=== PATIENT | female | born 1940 | race Caucasian/White ===

== ENCOUNTER → 2018-01-22 10:08 | Outpatient (CLI) | payer MEDICARE, SELFPAY ==
[2018-01-22 10:56] LABS: Anion Gap 9 (5-15); BUN 16 mg/dL (7-18); BUN/Creat Ratio 25.9 RATIO (10-20); Calcium,Total 8.9 mg/dL (8.5-10.1); Chloride 101 mmol/L (98-107); Creatinine, Serum 0.62 mg/dL (0.55-1.02); EST Glomerular Filtration Rate 100 mL/min (>60); Est Glom Filt Rate - Afr Amer 121 mL/min (>60); Glucose 83 mg/dL (74-106); Potassium 3.9 mmol/L (3.5-5.1); Sodium Level 140 mmol/L (136-145)
== END ==
PROVIDERS: Family Provider Family Medicine; PCP Family Medicine; Visit Provider Nurse Practitioner Acute Care
DX: J18.9 Pneumonia, unspecified organism (principal)
CPT/HCPCS: 36415; 80048

== ENCOUNTER → 2018-01-27 13:45 | Outpatient (CLI) | payer MEDICARE, SELFPAY ==
--- NOTE | 2018-01-27 14:00 | CT_ITS ---
STUDY: CT CHEST WITH CONTRAST REASON FOR EXAM: Female, 77 years old. Follow-up pneumonia. RADIATION DOSAGE (If Supplied By Facility): CTDIvol = ( 10.89 ) mGy, DLP = ( 190.47 ) mGycm TECHNIQUE: Transaxial imaging was performed following intravenous administration of 100CC ml of Isovue 300 contrast material. Individualized dose optimization techniques were used for this CT. COMPARISON: 09/18/2017, 11/07/2017. FINDINGS: There is hyperexpansion of the lungs. There is plate like density across the right middle lobe with thickening of the minor fissure consistent with residual scarring from previous pneumonia. Little if any residual pneumonia remains. There may be some residual atelectasis. Stable vague nodule in the posterior right apex, 4 mm size, seen on axial image 22. Lungs otherwise clear. No effusions. Normal heart and pericardium. Normal mediastinum. Normal hilar regions. Normal enhanced pulmonary arteries. Normal aorta arch and descending thoracic aorta. There are multi-level degenerative changes of the thoracic spine. There is no demonstrated abnormality of the visualized upper abdomen. CT/Chest WITH Contrast IMPRESSION: Only mild residual platelike atelectasis or scarring in the right middle lobe. No residual infiltrate. Electronically Signed: Ben Bates MD at 19:47 EDT , Service support ,
== END ==
PROVIDERS: Family Provider Family Medicine; PCP Family Medicine; Visit Provider Nurse Practitioner Acute Care
DX: J18.9 Pneumonia, unspecified organism (principal); R93.8 Abnormal findings on diagnostic imaging of other specified body structures
CPT/HCPCS: 71260; Q9967

== ENCOUNTER → 2018-06-03 12:50 | Outpatient (CLI) | payer MEDICARE, SELFPAY | PROVIDERS: Family Provider Family Medicine; PCP Family Medicine; Visit Provider Internal Medicine Cardiovascular Disease | DX: R01.1 Cardiac murmur, unspecified (principal) | CPT/HCPCS: 93306 ==

== ENCOUNTER 2022-04-18 18:48 | Emergency (ER) | payer MEDICARE, SELFPAY ==
[2022-04-18 18:48] VITALS: BP 124/87; PULSE 112; RESP 16; TEMP 37; O2SAT 98; BMI 21.9
--- NOTE | 2022-04-18 19:14 | CT_ITS ---
STUDY: CT BRAIN WITHOUT CONTRAST REASON FOR EXAM: Female, 82 years old. headache RADIATION DOSAGE (If Supplied By Facility): CTDIvol = ( 44.99 ) mGy, DLP = ( 812.98 ) mGycm TECHNIQUE: Transaxial CT imaging of the brain was performed without administration of intravenous contrast material. Individualized dose optimization techniques were used for this CT. COMPARISON: No relevant priors. FINDINGS: Normal soft tissue structures. Normal calvarium. Mild atrophy and periventricular white matter ischemic changes. Normal basal ganglia and thalami. Normal brainstem. Normal cerebellum. Partial empty sella deformity likely of no significance There is no intracranial hemorrhage. There are no findings of an acute ischemic infarction. Postsurgical changes of the orbits Moderate mucosal thickening of the maxillary sinuses bilaterally. CT/Brain/Head without Contrast IMPRESSION: Mild atrophy and periventricular white matter ischemic change. No evidence for acute intracranial hemorrhage Electronically Signed: Kermit Grace MD at 19:47 EDT ,
[2022-04-18] MEDS: Diphth,Pertuss(Acell),Tet Vac 0.5 ML Vial IM (19:36)
--- NOTE | 2022-04-18 21:16 | EX.ED.GENINJ ---
HPI History of Present Illness Chief Complaint: Fall Narrative Narrative: This is an 82-year-old female presenting with laceration to the right lateral eyebrow. 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 She denies LOC. She denies visual complaints. She denies dizziness, nausea, vomiting. She denies neck pain. She has not injured her extremities. She is not on any anticoagulation. Last tetanus unknown. [facility] Medical History Arthritis Diverticulosis Essential (primary) hypertension GERD (gastroesophageal reflux disease) Mixed hyperlipidemia Pneumonia PUD (peptic ulcer disease) Home Medications pantoprazole 40 mg tablet,delayed release 40 mg PO DAILY #30 tabs 03/25/16 [Rx Last Taken Unknown] calcium phosphate-vitamin D3 250 mg calcium-250 unit chewable tablet 2 tab PO .COMPLEX 09/29/17 [History Last Taken Unknown] [id number]-[id number] 750 mg-100 mg-125 mg-1.65 mg tablet (Glucosamine Chondroit Complx Advan) 2 tab PO .DAILY 09/29/17 [History Last Taken Unknown] ferrous sulfate 325 mg (65 mg iron) tablet 325 mg PO QDAY 05/20/18 [History Last Taken Unknown] meloxicam 15 mg tablet 15 mg PO QHS PRN PRN pain #30 tabs 05/20/19 [History Last Taken Unknown] fosinopril 20 mg tablet 20 mg PO DAILY 05/23/20 [History Last Taken Unknown] oxybutynin chloride 5 mg tablet,extended release 24 hr 5 mg PO DAILY 05/23/20 [History Last Taken Unknown] amlodipine 5 mg tablet 10 mg PO DAILY 08/07/21 [History Last Taken Unknown] Allergy/AdvReac Type Severity Reaction Status Date / Time ibuprofen AdvReac Nausea Verified 05/23/20 13:17 Family History Father CVA (cerebral vascular accident) Mother Colon cancer Surgical History History of tubal ligation Social History household members: significant other housing: house number of children: 0 current occupational status: retired current occupation: retired pets and animals: Yes pets and animals: dog(s) Smoking Status: Never smoker alcohol intake: current alcohol intake frequency: a few times a month Alcohol type: wine and hard liquor substance use type: does not use ROS ROS ED Eyes Eyes: Denies blurry vision or change in vision ENT ENT ED: Denies rhinorrhea or sore throat Cardiovascular Cardiovascular: Denies palpitations Respiratory/Chest Respiratory/Chest: Denies cough or dyspnea Gastrointestinal Gastrointestinal: Denies abdominal pain or constipation Genitourinary Genitourinary ED: Denies dysuria or hematuria Musculoskeletal Musculoskeletal: Denies arthralgias Integumentary Reports other Details: Laceration to right lateral eyebrow ; Denies abscess Neurologic Neurologic: Denies headache(s) or paresthesias Psychiatric Psychiatric: Denies anxiety or depression EXAM Physical Exam Const Vital Signs: 04/18/22 18:48 04/18/22 19:17 Temperature 98.6 F Temperature Source Temporal Pulse Rate 112 H Respiratory Rate 16 Respiratory Effort Normal Blood Pressure 124/87 H Blood Pressure Mean 99 Pulse Ox 98 Oxygen Delivery Method Room Air Positive well nourished General Appearance ED: NAD HEENT HEENT Narrative: 3 cm laceration to the right forehead with partial laceration extending into the eyebrow. The medial aspect of this in the eyebrow is somewhat macerated. No skull deformity. There is bruising over the right zygoma. No significant tenderness. No extraocular muscle intact. No nasal bone tenderness or bruising. Nares patent without epistaxis. No nasal septal hematoma. No hemotympanum. Eyes PERRL and EOMs intact bilaterally Neck full ROM Neck Narrative: No tenderness to palpation of the cervical spine or paraspinal musculature. Chest Wall inspection of chest normal Resp normal respiratory effort and clear to auscultation bilaterally Cardio regular rhythm Rate: regular rate GI normal to inspection, nondistended, normoactive bowel sounds Neuro oriented x3, CN's II-XII intact bilaterally, moves all extremities, no focal motor deficits and no sensory deficits noted Sensorium / Orientation: alert Motor Exam: strength 5/5 throughout Skin Skin Narrative: As described above MDM MDM MDM Narrative Medical decision making narrative: Patient presents laceration to the right lateral forehead. No focal neurologic deficits or lateralizing signs with parents. Patient's tetanus was updated. CT of the brain was negative for intracranial hemorrhage or other acute pathology. Patient's wound was cleaned with chlorhexidine. It was irrigated with 250 cc of normal saline. Wound was anesthetized with 2 cc of lidocaine with epinephrine. Good anesthesia achieved. The medial aspect was somewhat macerated but I was able to pull this together with 5?0 ethylene suture without pulling too much tension and good approximation was achieved. 4 other interrupted sutures were placed with good approximation of the wound margins. Patient tolerated procedure well. Wound care was discussed. Patient to monitor for signs of infection. She is counseled her sutures to come out in 5 to 7 days. Patient discharged home in stable condition. Impression: 1. Mechanical fall 2. Closed head injury 3. 3 cm forehead laceration Lab Data Attestation: I reviewed the patient's lab results. Radiography Diagnostic Testing: Clinical Impression(s) from Imaging Studies Brain CT 04/18/22 19:14 IMPRESSION: Mild atrophy and periventricular white matter ischemic change. No evidence for acute intracranial hemorrhage Electronically Signed: Kermit Grace MD at 19:47 EDT , Discharge Plan Triage Chief Complaint: Fall ED Provider: Kurt Roberson Dx/Rx/DC Orders Instructions: ED Laceration Face Suture or ... Prescriptions: No Action calcium phosphate-vitamin D3 250 mg calcium-250 unit chewable tablet 250 mg calcium- 250 unit tablet,chewable 2 tab PO .COMPLEX Label Comments: 2 tab PO daily Rx Instructions: 2 tab PO daily [id number]-[id number]-hyal 750 mg-100 mg-125 mg-1.65 mg tablet 750 mg-100 mg- 125 mg-1.65 mg tablet 2 tab PO .DAILY ferrous sulfate 325 mg (65 mg iron) tablet 325 mg PO QDAY meloxicam 15 mg tablet 15 mg PO QHS PRN PRN (Reason: pain) Qty: 30 Label Comments: TAKE 1 TABLET BY MOUTH ONCE DAILY WITH FOOD oxybutynin chloride 5 mg tablet extended release 24hr 5 mg PO DAILY fosinopril 20 mg tablet 20 mg PO DAILY Label Comments: TAKE 1 TABLET BY MOUTH ONCE DAILY amlodipine 5 mg tablet 10 mg PO DAILY pantoprazole 40 MG tablet 40 mg PO DAILY Qty: 30 1RF Primary Care Provider: Lino Baeza Referrals: Lino Baeza MD [Primary Care Provider] - Disposition Disposition: Home, Self Care
[2022-04-18 21:29] VITALS: PULSE 92; RESP 18; O2SAT 96
== END 2022-04-18 21:29 | disposition home or self-care (01) ==
PROVIDERS: Emergency Provider Student in an Organized Health Care Education/Training Program; PCP Family Medicine; Visit Provider Student in an Organized Health Care Education/Training Program
DX: S01.81XA Laceration without foreign body of other part of head, initial encounter (principal); I10 Essential (primary) hypertension; W01.0XXA Fall on same level from slipping, tripping and stumbling without subsequent striking against object, initial encounter; Z23 Encounter for immunization; Z79.899 Other long term (current) drug therapy
CPT/HCPCS: 12013; 70450; 90471; 90715; 99283

== ENCOUNTER → 2022-09-20 | Outpatient (CLI) | payer MEDICARE, SELFPAY ==
--- NOTE | 2022-09-20 12:56 | ECHOD_ITS ---
Reason For Study: MURMUR Procedure This was a 2D Doppler, Color Flow transthoracic echocardiogram. Exam performed in department. Left Ventricle Normal LV size. Left ventricular systolic function is normal. The estimated ejection fraction is 65 %. Stage 1 diastolic dysfunction. No regional wall motion abnormalities noted. Right Ventricle Normal RV size. Normal systolic function. Atria Normal left atrium. Normal right atrium. Mitral Valve Normal mitral valve. Mild (1+) eccentric mitral valve insufficiency. Tricuspid Valve Normal tricuspid valve. Mild (1+) tricuspid valve insufficiency. Pulmonary artery systolic pressure is 30 mmHg. Aortic Valve Trisinus/trileaflet aortic valve. Mild (1+) aortic valve insufficiency. Pulmonic Valve Normal pulmonic valve. Great Vessels Normal aortic root. The pulmonary artery is normal size. Normal inferior vena cava. Pericardium/Pleural No pericardial effusion. MMode/2D Measurements & Calculations RVDd: 2.5 cm Ao root diam: 3.4 cm LAV(MOD-bp): 40.9 ml LAV(MOD-bp) Indexed: 27.2 ml/m2 LAV(MOD-sp2): 38.4 ml LAV(MOD-sp4): 43.0 ml SV(MOD-sp4): 29.6 ml SV(sp4-el): 32.9 ml LVAd ap4: 16.1 cm2 LVLd ap4: 5.7 cm EDV(MOD-sp4): 35.2 ml EDV(sp4-el): 38.6 ml LVAs ap4: 5.3 cm2 LVLs ap4: 4.1 cm ESV(MOD-sp4): 5.6 ml ESV(sp4-el): 5.7 ml EF(MOD-sp4): 84.2 % EF(sp4-el): 85.2 % LA A4 area: 16.5 cm2 LA dimension(2D): 4.0 cm RA A4 area: 10.3 cm2 Time Measurements MV dec time: 0.25 sec Doppler Measurements & Calculations MV E max simon: 68.2 cm/sec Lat Peak E' Simon: 8.6 cm/sec Med Peak E' Simon: 5.1 cm/sec MV A max simon: 94.7 cm/sec E/E' lat: 7.9 E/E' med: 13.3 MV E/A: 0.72 MV V2 max: 101.5 cm/sec MV dec slope: 274.0 cm/sec2 Ao V2 max: 165.2 cm/sec MV max P.1 mmHg Ao max P.9 mmHg MV V2 mean: 63.9 cm/sec Ao V2 mean: 113.0 cm/sec MV mean P.8 mmHg Ao mean P.9 mmHg MV V2 VTI: 29.6 cm Ao V2 VTI: 35.0 cm AV (velocity ratio): 0.82 AI max simon: 381.6 cm/sec LV V1 max: 142.3 cm/sec PA V2 max: 106.1 cm/sec AI max P.3 mmHg LV V1 max P.1 mmHg PA V2 mean: 75.4 cm/sec LV V1 mean P.7 mmHg AI dec slope: 263.8 cm/sec2 LV V1 mean: 100.3 cm/sec AI P1/2t: 423.7 msec LV V1 VTI: 28.5 cm TR max simon: 257.9 cm/sec TR max P.6 mmHg ECHO/Echo Complete Interpretation Summary Normal LV size. Left ventricular systolic function is normal. The estimated ejection fraction is 65 %. Mild (1+) aortic valve insufficiency. Stage 1 diastolic dysfunction. Pulmonary artery systolic pressure is 30 mmHg. Ordering Physician: Yari Jose Referring Physician: Yari Jose Performed By: Jessy Umana RCS
--- NOTE | 2022-09-20 12:56 | CDU_ITS ---
Reason For Study: Bruit Rt. Velocities/BP Lt. Velocities/BP Prox CCA 108.2/11.6 cm/sec. Prox CCA 83.0/13.0 cm/sec. Mid CCA 88.8/16.3 cm/sec. Mid CCA 67.7/16.0 cm/sec. Dist CCA 63.0/11.4 cm/sec. Dist CCA 58.9/13.8 cm/sec. Prox ICA 51.1/8.1 cm/sec. Prox ICA 56.3/13.6 cm/sec. Mid ICA 68.3/16.7 cm/sec. Mid ICA 76.2/17.3 cm/sec. Dist ICA 59.7/16.7 cm/sec. Dist ICA 98.3/24.1 cm/sec. Rt. ICA/CCA = 0.8. Lt. ICA/CCA = 1.5. Prox ECA 60.7/9.7 cm/sec. Prox ECA 73.2/8.4 cm/sec. Rt. Vert. 35.1/4.4 cm/sec. Lt. Vert. 46.8/11.7 cm/sec. Right Extracranial There is heterogeneous, irregular atherosclerotic plaque noted in the right common carotid artery. There is heterogeneous, irregular atherosclerotic plaque noted in the right internal carotid artery. There is intimal thickening but no significant atherosclerotic plaque noted in the right external carotid artery. Antegrade flow is noted in the right vertebral artery. Left Extracranial There is intimal thickening but no significant atherosclerotic plaque noted in the left common carotid artery. There is heterogeneous, irregular atherosclerotic plaque noted in the left internal carotid artery. There is intimal thickening but no significant atherosclerotic plaque noted in the left external carotid artery. Antegrade flow is noted in the left vertebral artery. Procedure Carotid Duplex [id number]. This is a Carotid Duplex examination using B-mode, color flow and specral Doppler. The exam was diagnostic. Exam performed in department. VL/Carotid Duplex Ultrasound Interpretation Summary Irregular calcific plaque of the proximal right internal carotid artery with le ss than 50% stenosis Less than 50% stenosis right external carotid artery Heterogenous plaque of the proximal left internal carotid artery with less than 50% stenosis. Tortuosity and slight kinking of the left internal carotid artery. Less than 50% stenosis left external carotid artery Patent and antegrade vertebral arteries bilaterally Ordering Physician: Yari Jose Referring Physician: MD Aryan Lino Performed By: Jean Lozano RVT
== END | disposition home or self-care (01) ==
LOC: CVS 12:54
PROVIDERS: PCP Family Medicine; Referring Provider Physician Assistant Medical; Visit Provider Physician Assistant Medical
DX: I65.23 Occlusion and stenosis of bilateral carotid arteries (principal); R01.1 Cardiac murmur, unspecified; R09.89 Other specified symptoms and signs involving the circulatory and respiratory systems
CPT/HCPCS: 93306; 93880

== ENCOUNTER → 2024-09-30 | Outpatient (CLI) | payer MEDICARE, SELFPAY ==
--- NOTE | 2024-09-30 08:52 | ECHOD_ITS ---
Reason For Study: MURMUR Procedure This was a 2D Doppler, Color Flow transthoracic echocardiogram. Exam performed in department. Left Ventricle Normal LV size. Left ventricular systolic function is normal. The left ventricular ejection fraction is 65 %. No regional wall motion abnormalities noted. Right Ventricle Normal RV size. Normal systolic function. Atria Normal left atrium. Normal right atrium. Mitral Valve There is mild mitral annular calcification. Mild (1+) eccentric mitral valve insufficiency. Tricuspid Valve Normal tricuspid valve. Aortic Valve Trisinus/trileaflet aortic valve. Mild (1+) aortic valve insufficiency. Pulmonic Valve Normal pulmonic valve. Great Vessels Normal aortic root. The pulmonary artery is normal size. Inferior vena cava collapse with respiration. Pericardium/Pleural No pericardial effusion. MMode/2D Measurements & Calculations LVIDd: 3.3 cm IVSd: 1.1 cm LVOT diam: 1.9 cm LVIDs: 2.0 cm LVPWd: 1.1 cm LVOT area: 2.9 cm2 RVDd: 3.0 cm FS: 40.2 % LAV(MOD-bp): 38.6 ml LVAd ap4: 20.0 cm2 LVAd ap2: 18.4 cm2 LAV(MOD-bp) Indexed: 25.9 ml/m2 LVLd ap4: 6.7 cm LVLd ap2: 6.5 cm LAV(MOD-sp2): 32.5 ml EDV(MOD-sp4): 47.8 ml EDV(MOD-sp2): 42.7 ml LAV(MOD-sp4): 40.3 ml EDV(sp4-el): 51.0 ml EDV(sp2-el): 44.7 ml LVAs ap4: 7.7 cm2 LVAs ap2: 7.4 cm2 LVLs ap4: 4.7 cm LVLs ap2: 5.3 cm ESV(MOD-sp4): 11.0 ml ESV(MOD-sp2): 8.9 ml ESV(sp4-el): 10.6 ml ESV(sp2-el): 8.9 ml EF(MOD-sp4): 77.1 % EF(MOD-sp2): 79.1 % EF(sp4-el): 79.2 % SV(MOD-sp4): 36.9 ml SV(MOD-sp2): 33.8 ml SV(sp4-el): 40.4 ml SI(MOD-sp4): 24.7 ml/m2 SI(MOD-sp2): 22.6 ml/m2 Ao sinus diam: 3.5 cm LA A4 area: 16.2 cm2 LA dimension(2D): 3.5 cm TAPSE: 1.7 cm RA A4 area: 10.3 cm2 Time Measurements MV dec time: 0.25 sec Doppler Measurements & Calculations MV E max simon: 69.3 cm/sec Lat Peak E' Simon: 7.8 cm/sec Med Peak E' Simon: 5.1 cm/sec MV A max simon: 91.2 cm/sec E/E' lat: 8.9 E/E' med: 13.6 MV E/A: 0.76 MV dec slope: 281.1 cm/sec2 Ao V2 max: 171.7 cm/sec AI max simon: 382.1 cm/sec Ao max P.8 mmHg AI max P.4 mmHg Ao V2 mean: 116.2 cm/sec AI dec slope: 261.1 cm/sec2 Ao mean P.2 mmHg AI P1/2t: 428.5 msec Ao V2 VTI: 40.8 cm AV (velocity ratio): 0.82 LUBA(I,D): 2.4 cm2 LUBA(V,D): 2.3 cm2 LV V1 max: 135.3 cm/sec SV(LVOT): 96.3 ml PA V2 max: 92.2 cm/sec LV V1 max P.3 mmHg LV V1 mean P.1 mmHg LV V1 mean: 94.2 cm/sec LV V1 VTI: 33.3 cm TR max simon: 268.4 cm/sec TR max P.8 mmHg ECHO/Echo Complete Interpretation Summary Normal LV size. Left ventricular systolic function is normal. The left ventricular ejection fraction is 65 %. There is mild mitral annular calcification. Mild (1+) eccentric mitral valve insufficiency. Ordering Physician: Yari Jose Referring Physician: MD Aryan Lino Performed By: Yolanda Barron RDCS
== END | disposition home or self-care (01) ==
PROVIDERS: PCP Family Medicine; Referring Provider Physician Assistant Medical; Visit Provider Physician Assistant Medical
DX: R01.1 Cardiac murmur, unspecified (principal)
CPT/HCPCS: 93306

== ENCOUNTER → 2025-09-10 | Outpatient (CLI) | payer MEDICARE, SELFPAY ==
--- OUTSIDE RECORDS SUMMARY | 2025-09-10 11:18 | XMS RPT_ITS | CCD ---
Author Organization [facility] Care Team Providers Care Bilingual Office Assistant Name Role Phone Savita Vega MD Primary Care Provider Dr. Savita Vega Primary Care Provider Dr. Savita Vega Referring Provider SOHAIL Duncan Attending Provider Dr. Christian Hooker Attending Provider Dr. Nikita Akhtar Attending Provider Savita Vega MD Primary Care Provider Savita Vega MD Primary Care Provider Mary UNINDENTURED APPRENTICE.[place] VASQUEZ Unavailable [place]e UNINDENTURED APPRENTICE.Luigi VASQUEZ Unavailable Yari Duncan Attending Unavail able Savita Vega Primary Care Unavailable Savita Vega Referring Unavailable Christian Hooker Attending Unavailable Savita Vega Primary Care Unavailable Yari Duncan Attending Unavail able Yari Duncan Referring Unavail able Savita Vega Primary Care Unavailable Mary UNINDENTURED APPRENTICE.[place] VASQUEZ Unavailable SAVITA VEGA Primary Care Unavailable SAVITA VEGA Attending Unavailable CHEYENNE HERNANDEZ Attending UnavailSAVITA Daniel Primary Care Unavailable CHEYENNE HERNANDEZ Referring UnavailSAVITA Daniel Primary Care Unavailable SAVITA VEGA Attending Unavailable SAVITA VEGA Primary Care Unavailable Allergies Allergy Classification Reported Allergen(s) Allergy Type Date of Onset Reaction(s) Facility (20 sources) Ibuprofen; Translations: [IBUPROFEN] Drug Allergy 06-27-2017 GI Upset [facility] (1 source) Ibuprofen Drug Allergy 09-07-2024 [facility] Repository Medications Current Medications Medication Drug Class(es) Dates Sig (Normalized) Sig (Original) amLODIPine 10 mg oral tablet (20 sources) Dihydropyridine Calcium Channel Son Start: 06-25-2022 End: 06-21-2025 take 1 tablet by mouth once daily amLODIPine (NORVASC) 10 mg tablet Indications: Essential hypertension, benign Take 1 tablet by mouth once daily. 90 tablet 1 06/22/2025 Active Start: 08-07-2021 take 10 mg by mouth once daily Amlodipine Active 10 MG PO DAILY August 07, 2021 1:27pm Start: 07-24-2021 take 1 tablet by genesis th once daily amLODIPine (NORVASC) 10 mg tablet Indications: Essential hypertension, benign Take 1 tablet by mouth once daily. 30 tablet 11 07/24/2021 Active Start: 05-23-2020 End: 08-07-2021 take 5 mg by mouth once daily Amlodipine Discontinued 5 MG PO DAILY 60 May 22, 2020 11:00pm August 07, 2021 1:27pm Start: 03-25-2016 End: 05-23-2020 take 10 mg by mouth once daily Amlodipine Discontinued 10 MG PO daily May 17, 2018 11:00pm May 23, 2020 12:49pm Comment on above: Take 1 tablet by genesis th once daily. benzonatate 100 mg oral capsule (2 sources) Non-narcotic Antitussive Start: End: take 1 capsule by mouth every eight hours as needed benzonatate (TESSALON PERLE) 100 mg capsule Take 1 capsule by mouth three times a day as needed for cough for up to 7 days. 21 capsule 07/12/2024 07/19/2024 Active Start: 12-19-2022 take 2 capsules by m outh every eight hours as needed benzonatate (TESSALON PERLES) 100 mg capsule Take 2 capsules by mouth three times daily as needed. 30 capsule 0 12/19/2022 Active Comment on above: Take 2 capsules by m outh three times daily as needed. betamethasone 0.5 mg/ml topical cream (5 sources) Corticosteroid Start: 09-03-2024 End: 11-03-2024 betamethasone dipropionate (DIPROSONE) 0.05 % cream Indications: Contact dermatitis due to poison jose Apply to affected area twice daily 15 g 2 09/03/2024 11/03/2024 Active Start: 02-25-2023 End: 04-27-2023 betamethasone dipropionate ( DIPROSONE) 0.05 % cream Indications: Contact dermatitis due to poison jose Apply to affected area twice daily 15 g 2 02/25/2023 04/27/2023 Active Start: 02-25-2022 End: 04-27-2022 betamethasone dipropionate ( DIPROSONE) 0.05 % cream Indications: Contact dermatitis due to poison jose Apply to affected area twice daily 15 g 2 02/25/2022 04/27/2022 Active Comment on above: Apply to affected ar ea twice daily Calcium Carbonate / Ergocalciferol (20 sources) Provitamin D2 Compound Start: 6 take 3 tablets by mouth once daily calcium carbonate-vitamin d2 (OS-MIHAELA 500 W/D) 500 mg(1,250mg) -200 unit tab Take 3 tablets by mouth once daily. 0 06/20/2016 Active Comment on above: Take 3 tablets by mo ut once daily. calcium phosphate-vitamin D3 250 mg calcium-250 unit chewable tablet (2 sources) Start: 7 take 2 tablets by mouth once daily calcium phosphate-vitamin D3 250 mg calcium-250 unit chewable tablet Active 2 TABLET PO .COMPLEX September 29, 2017 12:00am 2 tab PO daily Start: 09-29-2017 take 2 tablets by mo ut once daily calcium phosphate-vitamin D3 250 mg calcium-250 unit chewable tablet Active 2 TABLET PO .COMPLEX September 29, 2017 1:00am 2 tab PO daily ferrous sulfate 325 mg oral tablet (20 sources) Start: 08-26-2022 take 1 tablet by genesis once daily at breakfast ferrous sulfate 325 mg (65 mg iron) tablet Take 1 tablet by mouth daily with breakfast. 08/26/2022 Active Start: 05-20-2018 take 325 mg by mouth once arnulfo y Ferrous Sulfate Active 325 MG PO daily May 20, 2018 12:07pm Start: 03-25-2016 End: 05-20-2018 take 325 mg by mouth twice daily at mealtime Ferrous Sulfate Discontinued 325 MG PO TWICE DAILY WITH MEALS 60 March 24, 2016 11:00pm May 20, 2018 12:07pm Comment on above: Take 1 tablet by genesis th daily with breakfast. fosinopril sodium 20 mg oral tablet (20 sources) Angiotensin Converting Enzyme Inhibitor Start: 03-10-2025 take 1 tablet by mouth once daily Fosinopril Sodium (MONOPRIL) 20 mg tablet Indications: Essential hypertension, benign Take 1 tablet by mouth once daily. 90 tablet 3 03/10/2025 Active Start: 05-23-2020 End: 03-25-2024 take 1 tablet by mouth once daily Fosinopril Sodium (MONOPRIL) 20 mg tablet Indications: Essential hypertension, benign Take 1 tablet by mouth once daily. 90 tablet 3 03/25/2024 Active Start: 03-25-2016 End: 05-23-2020 take 20 mg by mouth once daily Fosinopril Discontinued 20 MG PO DAILY March 24, 2016 11:00pm May 23, 2020 12:21pm Comment on above: Take 1 tablet by genesis th once daily. GLUCOSAMINE CHONDROITIN SMCONC 750 MG-600 MG-55 MG-5 MG TAB (20 sources) Start: 12-13-2005 GLUCOSAMINE CHONDROITIN SMCONC 750 MG-600 MG-55 MG-5 MG TAB Take 2 tabs daily 0 12/13/2005 Active Comment on above: Take 2 tabs daily glucosamine-chondroit- afmc601-txro 750 mg-100 mg-125 mg-1.65 mg tablet (2 sources) Start: 09-29-2017 take 1 tablet by mouth once daily glucosamine-chondroit -pgfz334-iyjy 750 mg-100 mg-125 mg-1.65 mg tablet Active 2 TABLET PO .DAILY September 29, 2017 12:00am Start: 09-29-2017 take 1 tablet by mouth once daily fbrxomjljnj-fbjqumllm-vcvv732-hyal 750 m g-100 mg-125 mg-1.65 mg tablet Active 2 TABLET PO .DAILY September 29, 2017 1:00am meloxicam 15 mg oral tablet (20 sources) Nonsteroidal Anti-inflammatory Drug Start: 05-20-2019 End: 03-29-2025 meloxicam (MOBIC) 15 mg tablet Indications: Arthritis of right upper arm Take 1 tablet by mouth as needed. Take with food. 30 tablet 5 03/29/2025 Active Comment on above: Take 1 tablet by mouth as needed. Take w ith food. jlcnkydy-tbz-col n-FA-lutein (CENTRUM SILVER WOMEN) 8 mg iron-400 mcg-300 mcg tab (20 sources) Start: 08-26-2022 take 1 tablet by mouth once daily fhazpfgj-rzm-anod- FA-lutein (CENTRUM SILVER WOMEN) 8 mg iron-400 mcg-300 mcg tab Take 1 tablet by mouth once daily. 08/26/2022 Active Start: 08-26-2022 take 1 tablet by genesis th once daily dqcpphbl-dhy-kgdq-FA-lutein (CENTRUM KADIE TONY WOMEN) 8 mg iron-400 mcg-300 mcg tab Take 1 tablet by mouth once daily. 0 08/26/2022 Active Comment on above: Take 1 tablet by genesis th once daily. 24 hr oxybutynin chloride 5 mg extended release oral tablet (20 sources) Cholinergic Muscarinic Antagonist Start: 0 End: 4 take 1 tablet by mouth once daily at bedtime oxybutynin XL (DITROPAN XL) 5 mg 24 hr tablet Take 1 tablet by mouth daily at bedtime. 90 tablet 3 08/09/2024 Active Comment on above: Take 1 tablet by genesis th daily at bedtime. pantoprazole 40 mg delayed release oral tablet (20 sources) Proton Pump Inhibitor Start: 3 End: 4 take 1 tablet by mouth once daily pantoprazole DR (PROTONIX) 40 mg tablet Indications: Gastric ulcer Take one tablet po every day 30 tablet 11 10/15/2024 Active Start: 06-22-2019 End: 08-26-2022 take 1 tablet by mouth every other day pantoprazole DR (PROTONIX) 40 mg tablet Indications: Gastric ulcer Take one tablet po every other day 0 06/22/2019 08/26/2022 Discontinued Start: 03-25-2016 End: 11-05-2022 take 1 tablet by mouth once daily pantoprazole DR (PROTONIX) 40 mg tablet Indications: Gastric ulcer Take one tablet po every day 30 tablet 11 11/05/2022 Active Comment on above: Take one tablet po e very other day Take one tablet po e very day predniSONE 20 mg oral tablet (1 source) Start: 12-19-2022 End: 12-24-2022 take 2 tablets by mouth once daily predniSONE (DELTASONE) 20 mg tablet Take 2 tablets by mouth once daily for 5 days. 10 tablet 0 12/19/2022 12/24/2022 Active Comment on above: Take 2 tablets by mo [facility] once daily for 5 days. Completed/Discontinued Medications Medication Drug Class(es) Dates Sig (Normalized) Sig (Original) 12 hr chlorpheniramine polistirex 1.6 mg/ml / HYDROcodone polistirex 2 mg/ml extended release suspension (2 sources) Histamine-1 Receptor Antagonist, Opioid Agonist Start: 09-29-2017 End: 05-23-2020 take 1 mL by mouth every twelve hours Hydrocodone-Chlorp heniramine (Tussionex Pennkinetic Er) 10-8 mg/5 mL suspension,extende d rel 12 hr Discontinued 5 ML PO ONCE September 29, 2017 12:00am May 23, 2020 12:21pm Problems Active Problems Problem Classification Problem Date Documented Da te Episodic/Chronic Allergic reactions (3 sources) Contact dermatitis due to poison jose; Translations: [Allergic contact dermatitis due to plants, except food] Onset: Episodic Chronic obstructive pulmonary disease and bronchiectasis (2 sources) Bronchitis; Translations: [Bronchitis, not specified as acute or chronic] Episodic Deficiency and other anemia (1 source) Iron deficiency anemia; Translations: [Iron deficiency anemia, unspecified] 09-03-2024 Episodic Disorders of lipid metabolism (17 sources) Mixed hyperlipidemia; Translations: [Mixed hyperlipidemia] Onset: 6 Resolved: 7 Chronic Diverticulosis and diverticulitis (20 sources) Diverticular disease; Translations: [Diverticulosis of intestine, part unspecified, without perforation or abscess without bleeding] Onset: 1 Resolved: 1 02-25-2011 Chronic Esophageal disorders (20 sources) Gastroesophageal reflux disease without esophagitis; Translations: [Gastro-esophageal reflux disease without esophagitis] Onset: 7 06-27-2017 Chronic Essential hypertension (20 sources) Benign essential hypertension; Translations: [Essential (primary) hypertension] Onset: 6 03-26-2006 Chronic Gastroduodenal ulcer (except hemorrhage) (4 sources) Gastric ulcer; Translations: [Gastric ulcer, unspecified as acute or chronic, without hemorrhage or perforation] Onset: 5 Chronic Heart valve disorders (6 sources) Heart murmur; Translations: [Cardiac murmur, unspecified] Onset: 5 Episodic Osteoarthritis (20 sources) Arthritis; Translations: [Unspecified osteoarthritis, unspecified site] Onset: 1 11-27-2010 Chronic Other aftercare (1 source) Removal of sutures done; Translations: [Encounter for removal of sutures] Episodic Other circulatory disease (1 source) Carotid bruit; Translations: [Other specified symptoms and signs involving the circulatory and respiratory systems] Episodic Other circulatory disease (2 sources) Other specified symptoms and signs involving the circulatory and respiratory systems; Translations: [Other symptoms involving cardiovascular system] Onset: 4 Episodic Other gastrointestinal disorders (3 sources) Abdominal mass; Translations: [Other intra-abdominal and pelvic swelling, mass and lump] Episodic Other nutritional; endocrine; and metabolic disorders (2 sources) Weight loss; Translations: [Abnormal weight loss] Episodic Other upper respiratory infections (1 source) Upper respiratory infection; Translations: [Acute upper respiratory infection, unspecified] 07-12-2024 Episodic Residual codes; unclassified (20 sources) Family history of malignant neoplasm of gastrointestinal tract; Translations: [Family history of malignant neoplasm of digestive organs] 01-15-2006 Episodic Past or Other Problems Problem Classification Problem Date Documented Da te Episodic/Chronic Deficiency and other anemia (1 source) Iron deficiency anemia, unspecified; Translations: [Iron deficiency anemia, unspecified iron deficiency anemia type] Onset: 09-03-2024 Episodic Genitourinary symptoms and ill-defined conditions (20 sources) Increased frequency of urination; Translations: [Frequency of micturition] Onset: 08-26-2022 Episodic Other lower respiratory disease (20 sources) Cough; Translations: [Cough] Onset: 06-27-2017 06-27-2017 Episodic Pneumonia (except that caused by tuberculosis or sexually transmitted disease) (20 sources) Infective pneumonia; Translations: [Pneumonia, unspecified organism] Onset: 08-21-2017 08-21-2017 Episodic Screening and history of mental health and substance abuse codes (2 sources) Encounter for screening for depression; Translations: [Encounter for screening examination for other mental health and behavioral disorders] Onset: 03-10-2025 Episodic Results Test Name Value Interpretation Reference Range Facility CNOVon 08-04-2025 CNOV Office Visit (FAMPWS ) SHRUTHI HORVATH ([id number]) 1940 F Date Time Provider Department 08/04/25 11:00 AM SAVITA VEGA [facility] During your visit today, we recorded the following information about you: Pulse Respiration Blood pressure Weight 86/minute 16/minute 110/70 51.8 kg Savita Vega MD 08/04/2025 2:19 PM Signed Chief Complaint Patient presents with: Follow Up: 5 month follow up Recording using [employer] software for draft documentation of the visit was discussed with the patient/authorized printing supplies sales representative; all questions welcomed and answered. Patient/authorized printing supplies sales representative agreed to proceed HPI Shruthi Horvath is a 85 year old female who presents here today for 5 month follow up. No bowel, Gi, or urinary issues. Taking Ditropan 5 mg daily for OAB. Shruthi reports that her antihypertensive medications, Monopril 20 mg and amlodipine 10 mg, are effectively managing her blood pressure, which today is recorded at 110/70 mmHg. She recalls a single episode of lightheadedness that lasted approximately 10 seconds, but denies recurrent episodes. GERD: Stable on Protonix 40 mg daily. Anemia: taking Iron daily. Monitored with labs. Lipid: Tries to watch diet. Does not take any cholesterol medications. Has FHx of CVA. She walks daily. For arthritis management, she takes meloxicam on an as-needed basis, approximately once a month, when the pain becomes intolerable. She experiences pain in her upper arm and shoulder, but denies dependence on the medication. She also notes that her fingers are crooked but remain pain-free as long as they are kept warm, for which she wears gloves during the winter. Shruthi has a known heart murmur, first identified by a parking attendant in 2017 during an evaluation for pneumonia. She is under the care of Dr. Hooker and his nurse practitioner, Yari Jose, for this condition. She reports that her last echocardiogram was performed a couple of years ago, and she was informed that the results were satisfactory. She has a follow-up appointment scheduled with Dr. Barrera in December. Past medical history, appointments, medications, allergies reviewed. Previous Medical History PAST MEDICAL HISTORY Diagnosis Date Diverticulosis of colon (without mention of hemorrhage) Essential hypertension, benign Family history of malignant neoplasm of gastrointestinal tract Generalized osteoarthrosis, unspecified site Stomach ulcer Previous Surgical History PAST SURGICAL HISTORY Procedure Laterality Date COLONOSCOPY FLX DX W/COLLJ SPEC WHEN PFRMD 01/15/06 Normal - Repeat in 5 years, X-3 COLONOSCOPY FLX DX W/COLLJ SPEC WHEN PFRMD 04/18/11 LIG/TRNSXJ FLP TUBE ABDL/VAG APPR UNI/BI 1979 Tubal ligation PAST SURGICAL HISTORY OF 03/[address] Garland PAST SURGICAL HISTORY OF 05/[address] Garland Family History FAMILY HISTORY Problem Relation Age of Onset Cancer Mother COLON CANCER - at 80yo Stroke Father Patient Allergies ALLERGIES Allergen Reactions Ibuprofen GI Upset Bleeding Ulcer Current Medications Current Outpatient Medications on File Prior to Visit Medication Sig amLODIPine (NORVASC) 10 mg tablet Take 1 tablet by mouth once daily. meloxicam (MOBIC) 15 mg tablet Take 1 tablet by mouth as needed. Take with food. Fosinopril Sodium (MONOPRIL) 20 mg tablet Take 1 tablet by mouth once daily. pantoprazole DR (PROTONIX) 40 mg tablet Take one tablet po every day oxybutynin XL (DITROPAN XL) 5 mg 24 hr tablet Take 1 tablet by mouth daily at bedtime. xjbotmzo-unk-ecso-FA-l utein (CENTRUM SILVER WOMEN) 8 mg iron-400 mcg-300 mcg tab Take 1 tablet by mouth once daily. ferrous sulfate 325 mg (65 mg iron) tablet Take 1 tablet by mouth daily with breakfast. calcium carbonate-vitamin d2 (OS-MIHAELA 500 W/D) 500 mg(1,250mg) -200 unit tab Take 3 tablets by mouth once daily. GLUCOSAMINE CHONDROITIN SMCONC 750 MG-600 MG-55 MG-5 MG TAB Take 2 tabs daily No current facility-administered medications on file prior to visit. Social History SOCIAL HISTORY[1] EXAM: BP 110/70 Pulse 86 Resp 16 Wt 51.8 kg (114 lb 3.2 oz) SpO2 100% BMI 21.02 kg/m? General Appearance: Well appearing, alert, in no acute distress, well-hydrated, well nourished.. Lungs: Lungs clear to auscultation. No wheezing, rhonchi, rales.. Heart: RRR without murmur, gallop, or rubs. No ectopy. Health Maintenance List Advance Directive Discussion due on 10/20/2024 Medicare Advantage Annual Wellness Visit Never done Covid-19 Vaccine( season) due on 06/20/2025 Depression Screening due on 03/10/2026 Anxiety Screening due on 03/10/2026 Diabetes Screening due on 02/29/2028 DTaP,Tdap,Td Vaccine(3 - Td or Tdap) due on 04/18/2032 Bone Density Screening Completed Influenza Vaccine Completed RSV Vaccine Completed Shingrix Vaccine Completed Pneu (more content not included)... Normal [facility] CNOVon 03-10-2025 CNOV Office Visit (FAMPWS ) SHRUTHI HORVATH ([id number]) 1940 F Date Time Provider Department 03/10/25 11:00 AM SAVITA VEGA [facility] During your visit today, we recorded the following information about you: Pulse Respiration Blood pressure Weight 80/minute 16/minute 118/66 51.8 kg Savita Vega MD 03/10/2025 11:23 AM Signed Chief Complaint Patient presents with: F/U 6 Month HPI Shruthi Horvath is a 85 year old female who presents here today for a 6 month follow up. Pt here today for her routine visit. Has family members who are in there late 90's and one family member who's 100 and lives out of state. She talks to them on the phone. Uro - Hx of urinary frequency and waking her up multiple times a night. Improved with taking Ditropan XL 5 mg at bedtime. GERD - Taking Protonix 40 mg daily. Symptoms controlled with use of medication. Hx of GI bleed, no issues. HTN - Denies checking BP at home, or having chest pain, sob, or dizziness. Taking Norvasc 10 mg and Monopril 20 mg daily. Following with [facility], annually. Lipid - FHx of CVA, always watching her cholesterol. Watches what she eats, limits sodium intake and avoids fried foods. Reports she can't eat as much during a sitting, but eats through out the day. Notes if she eats too much at one time, it goes right through her. Stays active with walking daily, unless the weather is bad. Does a lot of gardening. Arthritis - Stable with taking Meloxicam 15 mg daily as needed. Anemia - Taking Ferrous Sulfate 325 mg daily in the morning. Hx of GI bleed due to taking too much Ibuprofen. HM - Declines Covid vaccine and RSV today. Does have Adv Dir/Living Will. Depression/Anxiety screening, negative. Past medical history, appointments, medications, allergies reviewed. Previous Medical History PAST MEDICAL HISTORY Diagnosis Date Diverticulosis of colon (without mention of hemorrhage) Essential hypertension, benign Family history of malignant neoplasm of gastrointestinal tract Generalized osteoarthrosis, unspecified site Stomach ulcer Previous Surgical History PAST SURGICAL HISTORY Procedure Laterality Date COLONOSCOPY FLX DX W/COLLJ SPEC WHEN PFRMD 01/15/06 Normal - Repeat in 5 years, X-3 COLONOSCOPY FLX DX W/COLLJ SPEC WHEN PFRMD 04/18/11 LIG/TRNSXJ FLP TUBE ABDL/VAG APPR UNI/BI 1979 Tubal ligation PAST SURGICAL HISTORY OF 03/[address] Garland PAST SURGICAL HISTORY OF 05/[address] Garland Family History FAMILY HISTORY Problem Relation Age of Onset Cancer Mother COLON CANCER - at 80yo Stroke Father Patient Allergies ALLERGIES Allergen Reactions Ibuprofen GI Upset Bleeding Ulcer Current Medications Current Outpatient Medications on File Prior to Visit Medication Sig pantoprazole (PROTONIX) 40 mg tablet Take one tablet po every day oxybutynin XL (DITROPAN XL) 5 mg 24 hr tablet Take 1 tablet by mouth daily at bedtime. meloxicam (MOBIC) 15 mg tablet Take 1 tablet by mouth as needed. Take with food. amLODIPine (NORVASC) 10 mg tablet Take 1 tablet by mouth once daily. Fosinopril Sodium (MONOPRIL) 20 mg tablet Take 1 tablet by mouth once daily. ncefkrgi-ahp-fjvs-FA-l utein (CENTRUM SILVER WOMEN) 8 mg iron-400 mcg-300 mcg tab Take 1 tablet by mouth once daily. ferrous sulfate 325 mg (65 mg iron) tablet Take 1 tablet by mouth daily with breakfast. calcium carbonate-vitamin d2 (OS-MIHAELA 500 W/D) 500 mg(1,250mg) -200 unit tab Take 3 tablets by mouth once daily. GLUCOSAMINE CHONDROITIN SMCONC 750 MG-600 MG-55 MG-5 MG TAB Take 2 tabs daily No current facility-administered medications on file prior to visit. Social History Social History Tobacco Use Smoking status: Never Smokeless tobacco: Never Vaping Use Vaping status: Never Used Substance Use Topics Alcohol use: Yes Comment: occassionally Drug use: No EXAM: BP 118/66 (BP Site: Left Arm, BP Position: Sitting, BP Cuff Size: Regular Adult) Pulse 80 Resp 16 Wt 51.8 kg (114 lb 3.2 oz) BMI 21.02 kg/m? General Appearance: Well appearing, alert, in no acute distress, well-hydrated, well nourished.. Lungs: Lungs clear to auscultation. No wheezing, rhonchi, rales.. Heart: RRR without murmur, gallop, or rubs. No ectopy. Health Maintenance List RSV Vaccine(1 - 1-dose 75+ series) Never done Covid-19 Vaccine( season) due on 06/20/2024 Advance Directive Discussion due on 10/20/2024 Depression Screening due on 03/02/2025 Anxiety Screening due on 03/02/2025 Influenza Vaccine(Season Ended) due on 06/20/2025 Diabetes Screening due on 02/29/2028 DTaP,Tdap,Td Vaccine(3 - Td or Tdap) due on 04/18/2032 Bone Density Screening Completed Shingrix Vaccine Completed Pneumococcal Vaccine: 50+ Completed Colorectal Cancer Screening Discontinued Data reviewed Results Only on 02/28/2025 Comp (more content not included)... Normal [facility] CBC W Auto Differential pane l (Bld)on 02-28-2025 Basophils (Bld) [#/Vol] 0.05 10*3/uL Normal <0.11 [facility] Comment on above: Order Comment: Speci men Type: BLOOD SPECIMEN Ordering Facility: [facility] Address: [address] [place] [address] Performed By: #### [id number] 7021-8 #### [facility] CLIA [id number] [address] [place] [address] [place] Basophils/100 WBC (Bld) 0.7 % Normal [facility] Comment on above: Order Comment: Speci men Type: BLOOD SPECIMEN Ordering Facility: [facility] Address: [address] [place] [address] Performed By: #### [id number] 7021-8 #### [facility] CLIA [id number] [address] [place] [address] [place] Differential cell count method Nom (Bld) Auto Normal [facility] Comment on above: Order Comment: Speci men Type: BLOOD SPECIMEN Ordering Facility: [facility] Address: [address] [place] [address] Performed By: #### 5 7021-8 #### [facility] CLIA [id number] [address] [place] [address] [place] Eosinophils (Bld) [#/Vol] 0.28 10*3/uL Normal <0.46 [facility] Comment on above: Order Comment: Speci men Type: BLOOD SPECIMEN Ordering Facility: [facility] Address: [address] [place] [address] Performed By: #### 5 7021-8 #### [facility] CLIA [id number] [address] [place] [address] [place] Eosinophils/100 WBC (Bld) 3.9 % Normal [facility] Comment on above: Order Comment: Speci men Type: BLOOD SPECIMEN Ordering Facility: [facility] Address: [address] [place] [address] Performed By: #### 5 7021-8 #### [facility] CLIA [id number] [address] [place] [address] [place] Erythrocyte distribution width (RBC) [Ratio] 12.6 % Normal 11.5-15.0 [facility] Comment on above: Order Comment: Speci men Type: BLOOD SPECIMEN Ordering Facility: [facility] Address: [address] [place] [address] Performed By: #### 5 7021-8 #### [facility] CLIA [id number] [address] [place] [address] [place] Hematocrit (Bld) [Volume fraction] 42.2 % Normal 36.0-46.0 [facility] Comment on above: Order Comment: Speci men Type: BLOOD SPECIMEN Ordering Facility: [facility] Address: [address] [place] [address] Performed By: #### 5 7021-8 #### [facility] CLIA [id number] [address] [place] [address] [place] Hemoglobin (Bld) [Mass/Vol] 13.9 g/dL Normal 11.5-15.5 [facility] Comment on above: Order Comment: Speci men Type: BLOOD SPECIMEN Ordering Facility: [facility] Address: [address] [place] [address] Performed By: #### 5 7021-8 #### [facility] CLIA [id number] [address] [place] [address] [place] Immature granulocytes (Bld) [#/Vol] 10*3/uL Normal <0.10 [facility] Comment on above: Order Comment: Speci men Type: BLOOD SPECIMEN Ordering Facility: [facility] Address: [address] [place] [address] Performed By: #### 5 7021-8 #### [facility] CLIA [id number] [address] [place] [address] [place] Immature granulocytes/100 WBC (Bld) 0.1 % Normal [facility] Comment on above: Order Comment: Speci men Type: BLOOD SPECIMEN Ordering Facility: [facility] Address: [address] [place] [address] Performed By: #### 5 7021-8 #### [facility] CLIA [id number] [address] [place] [address] [place] Lymphocytes (Bld) [#/Vol] 3.36 10*3/uL Normal 1.00-4.00 [facility] Comment on above: Order Comment: Speci men Type: BLOOD SPECIMEN Ordering Facility: [facility] Address: [address] [place] [address] Performed By: #### 5 7021-8 #### [facility] CLIA [id number] [address] [place] [address] [place] Lymphocytes/100 WBC (Bld) 46.3 % Normal [facility] Comment on above: Order Comment: Speci men Type: BLOOD SPECIMEN Ordering Facility: [facility] Address: [address] [place] [address] Performed By: #### 5 7021-8 #### [facility] CLIA [id number] [address] [place] [address] [place] MCH (RBC) [Entitic mass] 31.3 pg Normal 26.0-34.0 [facility] Comment on above: Order Comment: Speci men Type: BLOOD SPECIMEN Ordering Facility: [facility] Address: [address] [place] [address] Performed By: #### 5 7021-8 #### [facility] CLIA [id number] [address] [place] [address] [place] MCHC (RBC) [Mass/Vol] 32.9 g/dL Normal 30.5-36.0 [facility] Comment on above: Order Comment: Speci men Type: BLOOD SPECIMEN Ordering Facility: [facility] Address: [address] [place] [address] Performed By: #### 5 7021-8 #### [facility] CLIA [id number] [address] [place] [address] [place] MCV (RBC) [Entitic vol] 95.0 fL Normal 80.0-100.0 [facility] Comment on above: Order Comment: Speci men Type: BLOOD SPECIMEN Ordering Facility: [facility] Address: [address] [place] [address] Performed By: #### 5 7021-8 #### [facility] CLIA [id number] [address] [place] [address] [place] Monocytes (Bld) [#/Vol] 0.69 10*3/uL Normal <0.87 [facility] Comment on above: Order Comment: Speci men Type: BLOOD SPECIMEN Ordering Facility: [facility] Address: [address] [place] [address] Performed By: #### 5 7021-8 #### [facility] CLIA [id number] [address] [place] [address] [place] Monocytes/100 WBC (Bld) 9.5 % Normal [facility] Comment on above: Order Comment: Speci men Type: BLOOD SPECIMEN Ordering Facility: [facility] Address: [address] [place] [address] Performed By: #### 5 7021-8 #### [facility] CLIA [id number] [address] [place] [address] [place] Neutrophils (Bld) [#/Vol] 2.86 10*3/uL Normal 1.45-7.50 [facility] Comment on above: Order Comment: Speci men Type: BLOOD SPECIMEN Ordering Facility: [facility] Address: [address] [place] [address] Performed By: #### 5 7021-8 #### [facility] CLIA [id number] [address] [id number] [address] [place] Neutrophils/100 WBC (Bld) 39.5 % Normal [facility] Comment on above: Order Comment: Speci men Type: BLOOD SPECIMEN Ordering Facility: [facility] Address: [address] [place] [address] Performed By: #### 5 7021-8 #### [facility] CLIA [id number] [address] [place] [address] [place] Nucleated RBC (Bld) [#/Vol] 10*3/uL Normal <0.01 [facility] Comment on above: Order Comment: Speci men Type: BLOOD SPECIMEN Ordering Facility: [facility] Address: [address] [place] [address] Performed By: #### 5 7021-8 #### [facility] CLIA [id number] [address] [place] [address] [place] Nucleated RBC/100 WBC (Bld) [Ratio] 0.0 /[address] [facility] Comment on above: Order Comment: Speci men Type: BLOOD SPECIMEN Ordering Facility: [facility] Address: [address] [place] [address] Performed By: #### 5 7021-8 #### [facility] CLIA [id number] [address] [place] [address] [place] Platelet mean volume (Bld) [Entitic vol] 10.3 fL Normal 9.0-12.7 [facility] Comment on above: Order Comment: Speci men Type: BLOOD SPECIMEN Ordering Facility: [facility] Address: [address] [place] [address] Performed By: #### 5 7021-8 #### [facility] CLIA [id number] [address] [place] [address] [place] Platelets (Bld) [#/Vol] 369 10*3/uL Normal 150-400 [facility] Comment on above: Order Comment: Speci men Type: BLOOD SPECIMEN Ordering Facility: [facility] Address: [address] [place] [address] Performed By: #### 5 7021-8 #### [facility] CLIA [id number] [address] [place] [address] [place] RBC (Bld) [#/Vol] 4.44 10*6/uL Normal 3.90-5.20 [facility] Comment on above: Order Comment: Speci men Type: BLOOD SPECIMEN Ordering Facility: [facility] Address: [address] [place] [address] Performed By: #### 5 7021-8 #### [facility] CLIA [id number] [address] [place] [address] [place] WBC (Bld) [#/Vol] 7.25 10*3/uL Normal 3.70-11.00 [facility] Comment on above: Order Comment: Speci men Type: BLOOD SPECIMEN Ordering Facility: [facility] Address: [address] [place] [address] Performed By: #### 5 7021-8 #### [facility] CLIA [id number] [address] [place] [address] [place] Comprehensive metabolic 2000 panelon 02-28-2025 Albumin [Mass/Vol] 4.2 g/dL Normal 3.9-4.9 [facility] Comment on above: Order Comment: Speci men Type: BLOOD SPECIMEN Ordering Facility: [facility] Address: [address] [place] [address] Performed By: #### 2 4323-8, 86391-7 #### [facility] CLIA [id number] [address] [place] [address] [place] ALP [Catalytic activity/Vol] 85 U/L Normal 34-123 [facility] Comment on above: Order Comment: Speci men Type: BLOOD SPECIMEN Ordering Facility: [facility] Address: [address] [place] [address] Performed By: #### 2 4323-8, 75439-4 #### [facility] CLIA [id number] [address] [address] [place] ALT [Catalytic activity/Vol] 11 U/L Normal 7-38 [facility] Comment on above: Order Comment: Speci men Type: BLOOD SPECIMEN Ordering Facility: [facility] Address: [address] [place] [address] Performed By: #### 2 4323-8, 24461-4 #### [facility] CLIA [id number] [address] [place], [place] [address] [place] Anion gap [Moles/Vol] 11 mmol/L Normal 8-15 [facility] Comment on above: Order Comment: Speci men Type: BLOOD SPECIMEN Ordering Facility: [facility] Address: [address] [place] [address] Performed By: #### 2 4323-8, 74405-3 #### [facility] CLIA [id number] [address] [place] [address] [place] AST [Catalytic activity/Vol] 19 U/L Normal 13-35 [facility] Comment on above: Order Comment: Speci men Type: BLOOD SPECIMEN Ordering Facility: [facility] Address: [address] [place] [address] Performed By: #### 2 4323-8, 62498-3 #### [facility] CLIA [id number] [address] [place], [place] [address] [place] Bilirubin [Mass/Vol] 0.3 mg/dL Normal 0.2-1.3 [facility] Comment on above: Order Comment: Speci men Type: BLOOD SPECIMEN Ordering Facility: [facility] Address: [address] [place], [place] [address] Performed By: #### 2 4323-8, 93115-7 #### [facility] CLIA [id number] [address] [place], [place] [address] [place] Calcium [Mass/Vol] 9.3 mg/dL Normal 8.5-10.2 [facility] Comment on above: Order Comment: Speci men Type: BLOOD SPECIMEN Ordering Facility: [facility] Address: [address] [place], [place] [address] Performed By: #### 2 4323-8, 94337-7 #### [facility] CLIA [id number] [address] [place] [address] [place] Chloride [Moles/Vol] 103 mmol/L Normal 98-107 [facility] Comment on above: Order Comment: Speci men Type: BLOOD SPECIMEN Ordering Facility: [facility] Address: [address] [place] [address] Performed By: #### 2 4323-8, 71125-7 #### [facility] CLIA [id number] [address] [place] [address] [place] CO2 [Moles/Vol] 27 mmol/L Normal 22-30 [facility] Comment on above: Order Comment: Speci men Type: BLOOD SPECIMEN Ordering Facility: [facility] Address: [address] [place], [place] [address] Performed By: #### 2 4323-8, 88370-1 #### [facility] CLIA [id number] [address] [place] [address] [place] Creatinine [Mass/Vol] 0.62 mg/dL Normal 0.58-0.96 [facility] Comment on above: Order Comment: Speci men Type: BLOOD SPECIMEN Ordering Facility: [facility] Address: [address] [place] [address] Performed By: #### 2 4323-8, 66441-1 #### [facility] CLIA [id number] [address] [place] [address] [place] Creatinine and Glomerular filtration rate.predicted panel (S/P/Bld) 88 mL/min/1.73m??? Normal >=60 [facility] Comment on above: Order Comment: Speci men Type: BLOOD SPECIMEN Ordering Facility: [facility] Address: [address] [place] [address] Result Comment: Guerda mated Glomerular Filtration Rate (eGFR) is calculated using the 2020 CKD-EPI creatinine equation. This equation utilizes serum creatinine, sex, and age as parameters. The creatinine assay has traceable calibration to isotope dilution-mass spectrometry. Refer to KDIGO guidelines for clinical interpretation. In patients with unstable renal function, e.g. those with acute kidney injury, the eGFR may not accurately reflect actual GFR. Performed By: #### 2 4323-8, 25385-0 #### [facility] CLIA [id number] [address] [place] [address] [place] Glucose [Mass/Vol] 86 mg/dL Normal 74-99 [facility] Comment on above: Order Comment: Cathleen jules Type: BLOOD SPECIMEN Ordering Facility: [facility] Address: [address] [place] [address] Result Comment: The [place] Diabetes Association (ADA) provides guidance for cutoff values for fasting glucose and random glucose. The ADA defines fasting as no caloric intake for at least 8 hours. Fasting plasma glucose results between 100 to 125 mg/dL indicate increased risk for diabetes (prediabetes). Fasting plasma glucose results greater than or equal to 126 mg/dL meet the criteria for diagnosis of diabetes. In the absence of unequivocal hyperglycemia, results should be confirmed by repeat testing. In a patient with classic symptoms of hyperglycemia or hyperglycemic crisis, random plasma glucose results greater than or equal to 200 mg/dL meet the criteria for diagnosis of diabetes. Reference: Standards of Medical Care in Diabetes 2016, [place] Diabetes Association. Diabetes Care. 2016.39(Suppl 1). Performed By: #### 2 4323-8, 91422-3 #### [facility] CLIA [id number] [address] [place] [address] [place] Potassium [Moles/Vol] 4.2 mmol/L Normal 3.7-5.1 [facility] Comment on above: Order Comment: Cathleen jules Type: BLOOD SPECIMEN Ordering Facility: [facility] Address: [address] [place] [address] Performed By: #### 2 4323-8, 60148-6 #### [facility] CLIA [id number] [address] [place] [address] [place] Protein [Mass/Vol] 6.9 g/dL Normal 6.3-8.0 [facility] Comment on above: Order Comment: Speci men Type: BLOOD SPECIMEN Ordering Facility: [facility] Address: [address] [place] [address] Performed By: #### 2 4323-8, 65392-0 #### [facility] CLIA [id number] [address] [place] [address] [place] Sodium [Moles/Vol] 141 mmol/L Normal 136-144 [facility] Comment on above: Order Comment: Speci men Type: BLOOD SPECIMEN Ordering Facility: [facility] Address: [address] [place] [address] Performed By: #### 2 4323-8, 42778-0 #### [facility] CLIA [id number] [address] [place] [address] [place] Urea nitrogen [Mass/Vol] 14 mg/dL Normal 7-21 [facility] Comment on above: Order Comment: Speci men Type: BLOOD SPECIMEN Ordering Facility: [facility] Address: [address] [place] [address] Performed By: #### 2 4323-8, 00986-3 #### [facility] CLIA [id number] [address] [place], [place] [address] [place] Lipid 1996 panelon 5 Cholesterol [Mass/Vol] 163 mg/dL Normal <200 [facility] Comment on above: Order Comment: Speci men Type: BLOOD SPECIMEN Ordering Facility: [facility] Address: [address] [place] [address] Result Comment: <200 mg/dL, Desirable 200-239 mg/dL, Borderline high >239 mg/dL, High Performed By: #### 2 4323-8, 79128-0 #### [facility] CLIA [id number] [address] [place] [address] [facility] Cholesterol in HDL [Mass/Vol] 48 mg/dL Normal >39 [facility] Comment on above: Order Comment: Khadrasushant jules Type: BLOOD SPECIMEN Ordering Facility: [facility] Address: [address] [place] [address] Result Comment: 40-5 9 mg/dL, Acceptable >59 mg/dL, High: Negative risk factor for coronary heart disease <40 mg/dL, Low: Positive risk factor for coronary heart disease Performed By: #### 2 4323-8, 75490-9 #### [facility] CLIA [id number] [address] [place] [address] Cholesterol in LDL [Mass/Vol] 98 mg/dL Normal <100 [facility] Comment on above: Order Comment: Cathleen jorge a Type: BLOOD SPECIMEN Ordering Facility: [facility] Address: [address] [place] [address] Result Comment: <100 mg/dL, Optimal 100-129 mg/dL, Near optimal/above optimal 130-159 mg/dL, Borderline high 160-189 mg/dL, High >189 mg/dL, Very high Secondary prevention optimal LDL Cholesterol levels are recommended to be <70 mg/dL LDL cholesterol is calculated using the Pineda-NIH equation. Performed By: #### 2 4323-8, 89724-0 #### [facility] CLIA [id number] [address] [place] [address] OF [facility] Cholesterol in LDL/Cholesterol in HDL [Mass ratio] 2.04 {ratio} Normal <2.54 [facility] Comment on above: Order Comment: Cathleen jules Type: BLOOD SPECIMEN Ordering Facility: [facility] Address: [address] [place] [address] Result Comment: Refe yonatance: 1. National Cholesterol Education Program ATP III Guideline At-A-Glance Quick Desk Reference: National Heart, Lung, and Blood [place]. National Institutes of Health. 2001: NIH Publication No. 01-3305. 2. An International Atherosclerosis Society position paper: global recommendations for the management of dyslipidemia: executive summary, Atherosclerosis. 2014: 232(2):410-413. Performed By: #### 2 4323-8, 49983-4 #### [facility] CLIA [id number] [address] [place], [place] [address] [place] Cholesterol in VLDL [Mass/Vol] 15 mg/dL Normal <30 [facility] Comment on above: Order Comment: Cathleen jules Type: BLOOD SPECIMEN Ordering Facility: [facility] Address: [address] [place] [address] Performed By: #### 2 4323-8, 61136-6 #### [facility] CLIA [id number] [address] [place] [address] [place] Cholesterol non HDL [Mass/Vol] 115 mg/dL Normal <130 [facility] Comment on above: Order Comment: Cathleen jules Type: BLOOD SPECIMEN Ordering Facility: [facility] Address: [address] [place] [address] Result Comment: <130 mg/dL, Optimal 130-159 mg/dL, Near optimal/above optimal 160-189 mg/dL, Borderline high 190-219 mg/dL, High >219 mg/dL, Very high Secondary prevention optimal non HDL Cholesterol levels are recommended to be <100 mg/dL Performed By: #### 2 4323-8, 15392-8 #### [facility] CLIA [id number] [address] [place] [address] [place] Cholesterol.total/Ch olesterol in HDL [Mass ratio] 3.40 {ratio} Normal <5.10 [facility] Comment on above: Order Comment: Cathleen jules Type: BLOOD SPECIMEN Ordering Facility: [facility] Address: [address] [place] [address] Performed By: #### 2 4323-8, 22640-1 #### [facility] CLIA [id number] [address] [place], [place] [address] [place] FASTING TIME [address] [facility] Comment on above: Order Comment: Speci men Type: BLOOD SPECIMEN Ordering Facility: [facility] Address: [address] [place] [address] Performed By: #### 2 4323-8, 47482-5 #### [facility] CLIA [id number] [address] [place] [address] [place] Triglyceride [Mass/Vol] 92 mg/dL Normal <150 [facility] Comment on above: Order Comment: Speci men Type: BLOOD SPECIMEN Ordering Facility: [facility] Address: [address] [place] [address] Result Comment: <150 mg/dL, Normal 150-199 mg/dL, Borderline high 200-499 mg/dL, High >499 mg/dL, Very high Performed By: #### 2 4323-8, 71118-4 #### [facility] CLIA [id number] [address] [place] [address] [place] Echo Completeon 09-30-2024 Echo Complete [facility] [address] [place] [address] Echo Complete 09/30/24 0858 MR#: [id number] Acct: [id number] Name: SHRUTHI HORVATH ANN Rep #: [id number] : 1940 84 From: Christian Hooker MD Attending Dr: SOHAIL Haines Status: [facility] Ordering Dr: Yari Jose Date: 09/19 12/13 Location: [facility] Sex: F C Admitted: Reason For Study: MURMUR Procedure This was a 2D Doppler, Color Flow transthoracic echocardiogram. Exam performed in department. Left Ventricle Normal LV size. Left ventricular systolic function is normal. The left ventricular ejection fraction is 65 %. No regional wall motion abnormalities noted. Right Ventricle Normal RV size. Normal systolic function. Atria Normal left atrium. Normal right atrium. Mitral Valve There is mild mitral annular calcification. Mild (1+) eccentric mitral valve insufficiency. Tricuspid Valve Normal tricuspid valve. Aortic Valve Trisinus/trileaflet aortic valve. Mild (1+) aortic valve insufficiency. Pulmonic Valve Normal pulmonic valve. Great Vessels Normal aortic root. The pulmonary artery is normal size. Inferior vena cava collapse with respiration. Pericardium/Pleural No pericardial effusion. MMode/2D Measurements Calculations LVIDd: 3.3 cm IVSd: 1.1 cm LVOT diam: 1.9 cm LVIDs: 2.0 cm LVPWd: 1.1 cm LVOT area: 2.9 cm2 RVDd: 3.0 cm FS: 40.2 % LAV(MOD-bp): 38.6 ml LVAd ap4: 20.0 cm2 LVAd ap2: 18.4 cm2 LAV(MOD-bp) Indexed: 25.9 ml/m2 LVLd ap4: 6.7 cm LVLd ap2: 6.5 cm LAV(MOD-sp2): 32.5 ml EDV(MOD-sp4): 47.8 ml EDV(MOD-sp2): 42.7 ml LAV(MOD-sp4): 40.3 ml EDV(sp4-el): 51.0 ml EDV(sp2-el): 44.7 ml LVAs ap4: 7.7 cm2 LVAs ap2: 7.4 cm2 LVLs ap4: 4.7 cm LVLs ap2: 5.3 cm ESV(MOD-sp4): 11.0 ml ESV(MOD-sp2): 8.9 ml ESV(sp4-el): 10.6 ml ESV(sp2-el): 8.9 ml EF(MOD-sp4): 77.1 % EF(MOD-sp2): 79.1 % EF(sp4-el): 79.2 % SV(MOD-sp4): 36.9 ml SV(MOD-sp2): 33.8 ml SV(sp4-el): 40.4 ml SI(MOD-sp4): 24.7 ml/m2 SI(MOD-sp2): 22.6 ml/m2 Ao sinus diam: 3.5 cm LA A4 area: 16.2 cm2 LA dimension(2D): 3.5 cm TAPSE: 1.7 cm RA A4 area: 10.3 cm2 Time Measurements MV dec time: 0.25 sec Doppler Measurements Calculations MV E max sophia: 69.3 cm/sec Lat Peak E' Sophia: 7.8 cm/sec Med Peak E' Sophia: 5.1 cm/sec MV A max sophia: 91.2 cm/sec E/E' lat: 8.9 E/E' med: 13.6 MV E/A: 0.76 MV dec slope: 281.1 cm/sec2 Ao V2 max: 171.7 cm/sec AI max sophia: 382.1 cm/sec Ao max P.8 mmHg AI max P.4 mmHg Ao V2 mean: 116.2 cm/sec AI dec slope: 261.1 cm/sec2 Ao mean P.2 mmHg AI P1/2t: 428.5 msec Ao V2 VTI: 40.8 cm AV (velocity ratio): 0.82 LUBA(I,D): 2.4 cm2 LUBA(V,D): 2.3 cm2 LV V1 max: 135.3 cm/sec SV(LVOT): 96.3 ml PA V2 max: 92.2 cm/sec LV V1 max P.3 mmHg LV V1 mean P.1 mmHg LV V1 mean: 94.2 cm/sec LV V1 VTI: 33.3 cm TR max sophia: 268.4 cm/sec TR max P.8 mmHg ECHO/Echo Complete Interpretation Summary Normal LV size. Left ventricular systolic function is normal. The left ventricular ejection fraction is 65 %. There is mild mitral annular calcification. Mild (1+) eccentric mitral valve insufficiency. Ordering Physician: Yari Jose Referring Physician: MD Savita Vega Performed By: Yolanda Barron RDCS 10/04/24939 Date Christian Hooker MD CC: Dr. Savita Vega MD; SOHAIL Haines Date Dictated: 09/30/24857 Date Transcribed: 10/04/24939 Proofer Apprentice: Signed Normal [facility] Cardiology Visit Reporton Cardiology Visit Report [facility] [address] [place] [address] OFFICE VISIT Date of Service: 09/07/24 MR#: [id number] Acct: [id number] Name: SHRUTHI HORVATH ANN Rep #: [id number] : 1940 Provider: SOHAIL Garnica Age/Sex: 84/F Location: [facility] Status: Signed HPI HPI History of Present Illness Details: SHRUTHI HORVATH, is a 83F who presents to the office today for a follow up visit. She has a history of hypertension, cardiac murmur and lipid issues who returns for follow-up visit. From a cardiac standpoint, patient is doing well. She does not have any chest discomfort/heaviness/t ightness. Her exercise tolerance is stable for her age. She is very active for her age. She does not have any worsening symptoms of shortness of breath. She does not have any orthopnea. She denies PND. She does not have any symptoms of congestive heart failure. She does not have any palpitations that she is aware of. She does not have any lightheadedness or dizziness. She does not have any near-syncope or syncope. She does not have any lower extremity edema. She does not have any symptoms of claudication. 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 Is patient in pain?: No Allergies ibuprofen Adverse Reaction (Verified 09/07/24 11:08) Nausea Medications ???Medication ???Instructions ???Recorded ???Confirmed ???Type pantoprazole 40 mg tablet,delayed 40 mg PO DAILY #30 tabs 03/25/16 09/07/24 Rx release calcium phosphate-vitamin D3 250 2 tab PO .COMPLEX 09/29/17 09/07/24 History mg calcium-250 unit chewable tablet glucosamine-chondroit- syyr488-cncl 2 tab PO .DAILY 09/29/17 09/07/24 History 750 mg-100 mg-125 mg-1.65 mg tablet (Glucosamine Chondroit Complx Advan) ferrous sulfate 325 mg (65 mg 325 mg PO QDAY 05/20/18 09/07/24 History iron) tablet meloxicam 15 mg tablet 15 mg PO QHS PRN PRN pain #30 tabs 05/20/19 09/07/24 History fosinopril 20 mg tablet 20 mg PO DAILY 05/23/20 09/07/24 History oxybutynin chloride 5 mg 5 mg PO DAILY 05/23/20 09/07/24 History tablet,extended release 24 hr amlodipine 5 mg tablet 10 mg PO DAILY 08/07/21 09/07/24 History Have you fallen in the past year?: No PFSH Medical History Essential (primary) hypertension Mixed hyperlipidemia GERD (gastroesophageal reflux disease) PUD (peptic ulcer disease) Diverticulosis Arthritis Pneumonia Surgical History History of tubal ligation Family History Father CVA (cerebral vascular accident) Mother Colon cancer Social History household members: significant other housing: house number of children: 0 current occupational status: retired current occupation: retired pets and animals: Yes pets and animals: dog(s) Smoking Status: Never smoker alcohol intake: current alcohol intake frequency: a few times a month Alcohol type: wine and hard liquor substance use type: does not use ROS Const Const: Negative for fatigue, weakness, fever(s) or headache(s) Eyes Eyes: Negative for blind spots, loss of peripheral vision or transient loss of vision ENT ENT: Negative for headache(s), dizziness, tinnitus, Nosebleed/epistaxis or balance problems Cardio Chest Pain: No Palpitations: No Edema: None Muscle aches with walking: None Resp Respiratory: Negative for SOB with activity, SOB at rest, SOB orthopnea SOB lying down or Cough GI GI: Negative nausea, vomiting, heartburn or vomiting blood/hematemesis : Negative for hematuria Musc Musc: Negative for muscle aches/ myalgia, muscle weakness, joint pain or balance problems Neuro Neuro: Negative for dizziness, lightheadedness, near syncope, syncope, orthostatic symptoms, headache(s) or weakness Chaitanya Hematologic/Lymphatic: Negative for easy bleeding Endo Endo: Negative for fatigue Cardiology Exam Const Appearance: cooperative, healthy appearing, comfortable, no acute distress and well developed Orientation: alert, awake and oriented x3 Head Head: normal to inspection Ears: hearing grossly normal bilaterally Nose: external nose normal Face and Sinus: face symmetric Mouth: oral mucosae normal, lip normal and moist mucous membranes Eyes General: appearance normal, both eyes and all related structures Eyelids: eyelids normal Conjuncti (more content not included)... Normal [facility] 09-03-2024 [facility] SHRUTHI HORVATH ([id number]) 1940 F Date Time Provider Department 09/03/24 11:40 AM CHEYENNE HERNANDEZ [facility] During your visit today, we recorded the following information about you: Pulse Respiration Blood pressure Weight 91/minute 16/minute 118/66 51.8 kg Cheyenne Hernandez APRN.CNP 09/03/2024 12:49 PM Signed This is a 84 year old female who presents today with: Patient presents with: 6 Month Exam HISTORY OF PRESENT ILLNESS: Shruthi Horvath is a 84 year old female. Patient presents with: 6 Month Exam 6 month follow up GERD: Taking Protonix 40 mg daily. Well controlled with medication. HTN: Taking Norvasc 10 mg and Monopril 20 mg daily. Not currently checking blood pressure at home. Denies chest pain, palpitations, dizziness, or edema. Following with [facility], annually. Arthritis: Taking meloxicam 15 mg daily as needed. Urinary frequency: Taking Ditropan XL 5 mg at bedtime. JAMES: Taking ferrous sulfate 325 mg daily with breakfast. Vaccines: May consider RSV in the future PAST MEDICAL HISTORY: PAST MEDICAL HISTORY Diagnosis Date Diverticulosis of colon (without mention of hemorrhage) Essential hypertension, benign Family history of malignant neoplasm of gastrointestinal tract Generalized osteoarthrosis, unspecified site Stomach ulcer PAST SURGICAL HISTORY Procedure Laterality Date COLONOSCOPY FLX DX W/COLLJ SPEC WHEN PFRMD 01/15/06 Normal - Repeat in 5 years, X-3 COLONOSCOPY FLX DX W/COLLJ SPEC WHEN PFRMD 04/18/11 LIG/TRNSXJ FLP TUBE ABDL/VAG APPR UNI/BI 1979 Tubal ligation PAST SURGICAL HISTORY OF 03/[address] Garland PAST SURGICAL HISTORY OF 05/[address] Garland ALLERGIES Ibuprofen MEDICATIONS Current Outpatient Medications Medication Sig oxybutynin XL (DITROPAN XL) 5 mg 24 hr tablet Take 1 tablet by mouth daily at bedtime. meloxicam (MOBIC) 15 mg tablet Take 1 tablet by mouth as needed. Take with food. amLODIPine (NORVASC) 10 mg tablet Take 1 tablet by mouth once daily. Fosinopril Sodium (MONOPRIL) 20 mg tablet Take 1 tablet by mouth once daily. pantoprazole DR (PROTONIX) 40 mg tablet Take one tablet po every day rvgoueqo-pey-zbjh-FA-l utein (CENTRUM SILVER WOMEN) 8 mg iron-400 mcg-300 mcg tab Take 1 tablet by mouth once daily. ferrous sulfate 325 mg (65 mg iron) tablet Take 1 tablet by mouth daily with breakfast. calcium carbonate-vitamin d2 (OS-MIHAELA 500 W/D) 500 mg(1,250mg) -200 unit tab Take 3 tablets by mouth once daily. GLUCOSAMINE CHONDROITIN SMCONC 750 MG-600 MG-55 MG-5 MG TAB Take 2 tabs daily No current facility-administered medications for this visit. FAMILY HISTORY Problem Relation Age of Onset Cancer Mother COLON CANCER - at 80yo Stroke Father Social History Tobacco Use Smoking status: Never Smokeless tobacco: Never Vaping Use Vaping status: Never Used Substance Use Topics Alcohol use: Yes Comment: occassionally Drug use: No REVIEW OF SYSTEMS GENERAL: No weight loss, malaise or fevers/chills HEENT: Negative for frequent or significant headaches, No changes in hearing or vision. NECK: Negative for lumps, goiter, pain and significant neck swelling RESPIRATORY: Negative for cough, hemoptysis, wheezing, dyspnea or shortness of breath CARDIOVASCULAR: Negative for chest pain, leg swelling, orthopnea, or palpitations GI: No nausea, vomiting, or diarrhea/constipation. No hematochezia/melena. No heartburn or reflux symptoms. : No history of dysuria, frequency or incontinence MUSCULOSKELETAL: Negative for joint pain or swelling. SKIN: Negative for lesions, rash, and itching ENDOCRINE: Negative for cold or heat intolerance, polyuria, polydipsia and goiter NEURO: No history of headaches, syncope, paralysis, seizures or tremors MOOD: Negative for depression, anxiety, or suicidal ideation. EXAM: BP 118/66 Pulse 91 Resp 16 Wt 51.8 kg (114 lb 3.2 oz) SpO2 99% BMI 21.02 kg/m? PHYSICAL EXAM: General Appearance: Well appearing, alert, in no acute distress, well-hydrated, well nourished. Skin: Skin color, texture, turgor normal, no suspicious rashes or lesions. Head: Normocephalic, no masses, lesions, tenderness or abnormalities. Eyes: Anicteric sclera. Extraocular movements are intact. Lungs: Lungs clear to auscultation. No wheezing, rhonchi, rales. Heart: RRR without murmur, gallop, or rubs. No ectopy. Extremities: No deformities, edema, skin discoloration, clubbing or cyanosis. Good capillary refill. Peripheral Pulses: Normal, Capillary refill <2secs, strong peripheral pulses, Pulses palpable. Neurologic: Gait normal. Sensation grossly intact. ASSESSMENT/PLAN: 1. BENIGN HYPERTENSION - ICD9: 401.1, ICD10: I10 (primary diagnosis) - Controlled - Continue current medications - Recommend home blood pressure monitoring, to bring results to nex (more content not included)... [facility]/LATon [facility] XR Chest PA and Lateralon IMPRESSION: No acute radiographic abnormality. Proofer Apprentice: [place] Transcribe Date/Time: Dec 19 2022 3:04P Dictated by : RAFAEL PAYAN MD This examination was interpreted and the report reviewed and electronically signed by: RAFAEL PAYAN MD on Dec 19 2022 3:07PM [facility] DIVISION OF RADIOLOGY * * *Final Report* * * DATE OF EXAM: Dec 19 2022 2:42PM [id number] - XR CHEST 2V FRONTAL/LAT / PROCEDURE REASON: Bronchitis * * * * Physician Interpretation * * * * EXAMINATION: CHEST RADIOGRAPH (2 VIEW FRONTAL & LATERAL) CLINICAL HISTORY: Bronchitis MQ: XC2_6 EXAM DATE/TIME: 12/19/2022 2:42 PM COMPARISON: Chest x-ray 09/16/2017 RESULT: Lines, tubes, and devices: None. Lungs and pleura: No consolidation. No lung mass. No pleural effusion. No pneumothorax. Cardiomediastinal silhouette: Normal cardiomediastinal silhouette. Bones and soft tissues: Degenerative disease of the thoracic spine. DIVISION OF RADIOLOGY Provider, [facility] - 12/19/2022 * * *Final Report* * * DATE OF EXAM: Dec 19 2022 2:42PM WOX [id number] - XR CHEST 2V FRONTAL/LAT / PROCEDURE REASON: Bronchitis * * * * Physician Interpretation * * * * EXAMINATION: CHEST RADIOGRAPH (2 VIEW FRONTAL & LATERAL) CLINICAL HISTORY: Bronchitis MQ: XC2_6 EXAM DATE/TIME: 12/19/2022 2:42 PM COMPARISON: Chest x-ray 09/16/2017 RESULT: Lines, tubes, and devices: None. Lungs and pleura: No consolidation. No lung mass. No pleural effusion. No pneumothorax. Cardiomediastinal silhouette: Normal cardiomediastinal silhouette. Bones and soft tissues: Degenerative disease of the thoracic spine. IMPRESSION IMPRESSION: No acute radiographic abnormality. Proofer Apprentice: [place] Transcribe Date/Time: Dec 19 2022 3:04P Dictated by : RAFAEL PAYAN MD This examination was interpreted and the report reviewed and electronically signed by: RAFAEL PAYAN MD on Dec 19 2022 3:07PM EST [facility] Radiology Study observation (narrative) [facility] XR Chest PA and LateralOrder ed By: [facility] Provider on 12-19-2022 [facility] No Panel Informationon 11-18 [facility] Vital Signs Date Time Vital Sign Value Performing Clinician Facility 09-03-2024 11:31-0500 Body mass index (BMI) [Ratio] 21.02 kg/m2 Cheyenne Hernandez UNINDENTURED APPRENTICE.OFFICE SERVICES CLERK Work Phone: [facility] 09-03-2024 11:31-0500 Body weight 51.8 kg Cheyenne Hernandez UNINDENTURED APPRENTICE.OFFICE SERVICES CLERK Work Phone: [facility] 09-03-2024 11:31-0500 Diastolic blood pressure 66 mm[Hg] Cheyenne Hernandez UNINDENTURED APPRENTICE.OFFICE SERVICES CLERK Work Phone: [facility] 09-03-2024 11:31-0500 Heart rate 91 /min Cheyenne Hernandez UNINDENTURED APPRENTICE.OFFICE SERVICES CLERK Work Phone: [facility] 09-03-2024 11:31-0500 Respiratory rate 16 /min Cheyenne Hernandez UNINDENTURED APPRENTICE.OFFICE SERVICES CLERK Work Phone: [facility] 09-03-2024 11:31-0500 SaO2% (BldA) [Mass fraction] 99 % Cheyenne Hernandez UNINDENTURED APPRENTICE.OFFICE SERVICES CLERK Work Phone: [facility] 09-03-2024 11:31-0500 Systolic blood pressure 118 mm[Hg] Cheyenne Hernandez UNINDENTURED APPRENTICE.OFFICE SERVICES CLERK Work Phone: [facility] 07-12-2024 09:54-0400 Body mass index (BMI) [Ratio] 21.31 kg/m2 Kermit Marino UNINDENTURED APPRENTICE.OFFICE SERVICES CLERK Work Phone: [facility] 07-12-2024 09:54-0400 Body temperature 97.7 [degF] Kermit Marino UNINDENTURED APPRENTICE.OFFICE SERVICES CLERK Work Phone: [facility] 07-12-2024 09:54-0400 Body weight 52.5 kg Kermit Marino UNINDENTURED APPRENTICE.OFFICE SERVICES CLERK Work Phone: [facility] 07-12-2024 09:54-0400 Diastolic blood pressure 68 mm[Hg] [facility] UNINDENTURED APPRENTICE.OFFICE SERVICES CLERK Work Phone: [facility] 07-12-2024 09:54-0400 Heart rate 92 /min [facility] UNINDENTURED APPRENTICE.OFFICE SERVICES CLERK Work Phone: [facility] 07-12-2024 09:54-0400 Respiratory rate 16 /min [facility] UNINDENTURED APPRENTICE.OFFICE SERVICES CLERK Work Phone: [facility] 07-12-2024 09:54-0400 SaO2% (BldA) [Mass fraction] 97 % [facility] UNINDENTURED APPRENTICE.OFFICE SERVICES CLERK Work Phone: [facility] 07-12-2024 09:54-0400 Systolic blood pressure 138 mm[Hg] [facility] UNINDENTURED APPRENTICE.OFFICE SERVICES CLERK Work Phone: [facility] 03-02-2024 11:25-0400 Body mass index (BMI) [Ratio] 21.37 kg/m2 Savita Vega MD Work Phone: [facility] 03-02-2024 11:25-0400 Body weight 52.66 kg Savita Vega MD Work Phone: [facility] 03-02-2024 11:25-0400 Diastolic blood pressure 72 mm[Hg] Savita Vega MD Work Phone: [facility] 03-02-2024 11:25-0400 Heart rate 88 /min Savita Vega MD Work Phone: [facility] 03-02-2024 11:25-0400 Respiratory rate 16 /min Savita Vega MD Work Phone: [facility] 03-02-2024 11:25-0400 Systolic blood pressure 120 mm[Hg] Savita Vega MD Work Phone: [facility] 12-19-2022 14:08-0500 Body temperature 97.7 [degF] Candy Athy PA-C Work Phone: [facility] 12-19-2022 14:08-0500 Body weight 52.8 kg Candy Athy PA-C Work Phone: [facility] 12-19-2022 14:08-0500 Diastolic blood pressure 64 mm[Hg] Candy Athy PA-C Work Phone: [facility] 12-19-2022 14:08-0500 Heart rate 108 /min Candy Athy PA-C Work Phone: [facility] 12-19-2022 14:08-0500 Respiratory rate 18 /min Candy Athy PA-C Work Phone: [facility] 12-19-2022 14:08-0500 SaO2% (BldA) [Mass fraction] 97 % Candy Athy PA-C Work Phone: [facility] 12-19-2022 14:08-0500 Systolic blood pressure 118 mm[Hg] Candy Athy PA-C Work Phone: [facility] 09-09-2022 09:21-0500 Body height 154.[address] Savita Vega Work Phone: [facility] Work Phone: 09-09-2022 09:21-0500 Body mass index (BMI) [Ratio] 22.4 kg/m2 Dr. Savita Vega Work Phone: [facility] Work Phone: 09-09-2022 09:21-0500 Body weight 53.[address] Savita Vega Work Phone: [facility] Work Phone: 09-09-2022 09:21-0500 Diastolic blood pressure 73 mm[Hg] Dr. Savita Vega Work Phone: [facility] Work Phone: 09-09-2022 09:21-0500 Heart rate 88 /min Dr. Savita Vega Work Phone: [facility] Work Phone: 09-09-2022 09:21-0500 Respiratory rate 18 /min Dr. Savita Vega Work Phone: [facility] Work Phone: 09-09-2022 09:21-0500 SaO2% (BldA) [Mass fraction] 96 % Dr. Savita Vega Work Phone: [facility] Work Phone: 09-09-2022 09:21-0500 Systolic blood pressure 126 mm[Hg] Dr. Savita Vega Work Phone: [facility] Work Phone: 08-26-2022 11:22-0500 Body weight 53.34 kg Savita Vega MD Work Phone: [facility] 08-26-2022 11:22-0500 Diastolic blood pressure 68 mm[Hg] Savita Vega MD Work Phone: [facility] 08-26-2022 11:22-0500 Heart rate 70 /min Savita eVga MD Work Phone: [facility] 08-26-2022 11:22-0500 Respiratory rate 16 /min Savita Vega MD Work Phone: [facility] 08-26-2022 11:22-0500 Systolic blood pressure 112 mm[Hg] Savita Vega MD Work Phone: [facility] 04-26-2022 13:45-0400 Body temperature 96.69 [degF] Kermit Marino UNINDENTURED APPRENTICE.OFFICE SERVICES CLERK Work Phone: [facility] 04-26-2022 13:45-0400 Body weight 53.52 kg Kermit Marino UNINDENTURED APPRENTICE.OFFICE SERVICES CLERK Work Phone: [facility] 04-26-2022 13:45-0400 Diastolic blood pressure 70 mm[Hg] Kermit Marino UNINDENTURED APPRENTICE.OFFICE SERVICES CLERK Work Phone: [facility] 04-26-2022 13:45-0400 Heart rate 90 /min [facility] UNINDENTURED APPRENTICE.OFFICE SERVICES CLERK Work Phone: [facility] 04-26-2022 13:45-0400 Respiratory rate 20 /min [facility] UNINDENTURED APPRENTICE.OFFICE SERVICES CLERK Work Phone: [facility] 04-26-2022 13:45-0400 SaO2% (BldA) [Mass fraction] 97 % [facility] UNINDENTURED APPRENTICE.OFFICE SERVICES CLERK Work Phone: [facility] 04-26-2022 13:45-0400 Systolic blood pressure 120 mm[Hg] [facility] UNINDENTURED APPRENTICE.OFFICE SERVICES CLERK Work Phone: [facility] 04-18-2022 21:29-0400 Heart rate 92 /min [facility] Work Phone: 04-18-2022 21:29-0400 Respiratory rate 18 /min [facility] Work Phone: 04-18-2022 21:29-0400 SaO2% (BldA) [Mass fraction] 96 % [facility] Work Phone: 04-18-2022 18:48-0400 Body height 154.94 cm [facility] Work Phone: 04-18-2022 18:48-0400 Body mass index (BMI) [Ratio] 21.9 kg/m2 [facility] Work Phone: 04-18-2022 18:48-0400 Body temperature 98.6 [degF] [facility] Work Phone: 04-18-2022 18:48-0400 Body weight 52.61 kg [facility] Work Phone: 04-18-2022 18:48-0400 Diastolic blood pressure 87 mm[Hg] [facility] Work Phone: 04-18-2022 18:48-0400 Systolic blood pressure 124 mm[Hg] [facility] Work Phone: 02-25-2022 11:01-0400 Body weight 53.34 kg Savita Vega MD Work Phone: [facility] 02-25-2022 11:01-0400 Diastolic blood pressure 68 mm[Hg] Savita Vega MD Work Phone: [facility] 02-25-2022 11:01-0400 Heart rate 68 /min Savita Vega MD Work Phone: [facility] 02-25-2022 11:01-0400 Respiratory rate 16 /min Savita Vega MD Work Phone: [facility] 02-25-2022 11:010400 Systolic blood pressure 138 mm[Hg] Savita Vega MD Work Phone: [facility] Encounters Encounter Date Encounter Type Care Provider Facility Start: 08-04-2025 End: 08-04-2025 ambulatory SAVITA VEGA Facility:[facility] Start: 06-21-2025 End: 06-22-2025 Refill Savita Vega MD Work Phone: [facility] Comment on above: Refill Request Start: 03-29-2025 End: 03-29-2025 Refill Savita Vega MD Work Phone: [facility] Comment on above: Refill Request Start: 03-10-2025 End: 03-10-2025 ambulatory SAVITA VEGA Facility:[facility] Start: 2025 End: 05-01-2025 Follow-up encounter Luigi Romeo APRN.CNP Work Phone: [facility] Start: 02-28-2025 End: 02-28-2025 ambulatory CHEYENNE HERNANDEZ Facility:[facility] Start: 10-15-2024 End: 10-28-2024 Refill Savita Vega MD Work Phone: [facility] Comment on above: Refill Request Start: 09-30-2024 ambulatory Christian Hooker Facility:[facility] Start: 09-30-2024 End: 09-30-2024 ambulatory Yari SAUCEDA Facility:[facility] Start: 09-07-2024 End: 09-07-2024 ambulatory Yari SAUCEDA Facility:[facility] Start: 09-03-2024 End: 09-03-2024 Patient encounter procedure Cheyenne Hernandez APRN.OFFICE SERVICES CLERK Work Phone: [facility] Comment on above: BENIGN HYPERTENSION (Primary Dx); Hyperlipidemia, unspecified hyperlipidemia type; GERD without esophagitis; Arthritis; Urinary frequency; Iron deficiency anemia, unspecified iron deficiency anemia type; Contact dermatitis due to poison jose Start: 09-03-2024 End: 09-03-2024 ambulatory CHEYENNEMICHAEL ONTIVEROS SATNAMNEETU Facility:[facility] Start: 08-09-2024 End: 08-09-2024 Refill Savita Vega MD Work Phone: [facility] Comment on above: Refill Request Start: 07-12-2024 End: 07-12-2024 Office outpatient visit 15 minutes Kermit Marino APRN.OFFICE SERVICES CLERK Work Phone: [facility] Comment on above: URI with cough and c ongestion (Primary Dx) Start: 06-28-2024 End: 06-28-2024 Refill Savita Vega MD Work Phone: [facility] Comment on above: Refill Request Start: 03-25-2024 Refill Savita bishop MD Work Phone: [facility] Comment on above: Refill Request Start: 03-02-2024 End: 03-02-2024 Patient encounter procedure Savita Vega MD Work Phone: [facility] Comment on above: Essential hypertensi on, benign (Primary Dx); GERD without esophagitis; Arthritis; Urinary frequency Start: 07-22-2023 Refill Savita bishop MD Work Phone: Podiatry Comment on above: Refill Request Start: 03-25-2023 Refill Savita bishop MD Work Phone: [facility] Comment on above: Refill Request Start: 12-19-2022 End: 12-19-2022 Subsequent hospital visit by physician [facility] Work Phone: Radiology Comment on above: Bronchitis [J40] Start: 12-19-2022 End: 12-19-2022 Patient encounter procedure Candy Dutton PA-C Work Phone: [facility] Comment on above: Bronchitis (Primary Dx) Start: 11-19-2022 Telephone encounter Savita ortiz MD Work Phone: [facility] Comment on above: Results Start: 11-18-2022 End: 11-18-2022 Subsequent hospital visit by physician [facility] Work Phone: Radiology Comment on above: Abdominal mass of ot her site [R19.09] Start: 11-12-2022 ambulatory Savita bishop MD Work Phone: [facility] Comment on above: Results Start: 11-05-2022 Refill Savita bishop MD Work Phone: [facility] Comment on above: Refill Request Start: 10-31-2022 Refill Savita bishop MD Work Phone: [facility] Comment on above: Refill Request Start: 09-20-2022 Non-patient / Non-visit Dr. Jonny Vega Work Phone: [facility] Start: 09-20-2022 End: 09-20-[address] Savita Vega Work Phone: [facility] Work Phone: Start: 09-20-2022 End: 09-20-[address] Savita Vega Work Phone: [facility] Start: 09-09-2022 End: 09-09-[address] Savita Vega Work Phone: [facility] Start: 08-26-2022 End: 08-26-2022 Patient encounter procedure Savita Vega MD Work Phone: [facility] Comment on above: Essential hypertensi on, benign (Primary Dx); Gastric ulcer; GERD without esophagitis; Arthritis; Urinary frequency; Gastric ulcer, unspecified chronicity, unspecified whether gastric ulcer hemorrhage or perforation present Start: 04-26-2022 End: 04-26-2022 Patient encounter procedure Kermit Marino BRYANT Work Phone: [facility] Comment on above: Visit for suture rem oval (Primary Dx) Start: 04-18-2022 End: 04-18-2022 [facility] Start: 02-25-2022 End: 02-25-2022 Patient encounter procedure Savita Vega MD Work Phone: [facility] [place] Comment on above: Essential hypertensi on, benign (Primary Dx); Contact dermatitis due to poison jose; GERD without esophagitis; Arthritis; Urinary frequency Start: 02-04-2022 Refill Savita bishop MD Work Phone: [facility] Comment on above: Prescription Refills Procedures Date Procedure Procedure Detail Performing Clinician Start: 03-10-2025 Adult depression scr eening assessment Savita Vega MD Work Phone: Start: 03-02-2024 Adult depression scr eening assessment Savita Vega MD Work Phone: Start: 12-19-2022 Radiologic exam ches t 2 views Candy Pranav Dutton PA-C Work Phone: Start: 11-18-2022 Us retroperitoneal r eal time w/image limited Savita Vega MD Work Phone: Start: 04-18-2022 CT of head without contrast Start: 02-25-2022 Adult depression scr eening assessment Savita Vega MD Work Phone: Start: 12-24-2018 Adult depression scr eeabdi assessment Savita Vega MD Work Phone: Plan of Treatment Date Care Activity Detail Author Start: 04-18-2032 Urine microalbumin profile [facility] Start: 02-29-2028 Diabetes Screening Diabetes Screenin g [facility] Start: 02-23-2027 Diabetes Screening Diabetes Screenin g [facility] Start: 03-10-2026 Anxiety Screening Anxiety Screening [facility] Start: 03-10-2026 Covid-19 Vaccine ( season) Covid-19 Vaccine () [facility] Comment on above: Postponed from 06/20 (Declined at this time) Start: 03-10-2026 Depression Screening Depression Scre ening [facility] Start: 02-17-2026 DIABETES SCREEN DIABETES SCREEN [facility] Start: 02-17-2026 Diabetes Screening Diabetes Screenin g [facility] Start: 12-28-2025 End: 12-28-2025 Patient encounter procedure 12/28/2025 1:00 PM EDT Office Visit [facility] [address] [facility], [place] [id number] Alan Barrera DO [address] [place], [place] [phone] est [facility] patient [facility] [place] Comment on above: est [facility] patient Start: 09-10-2025 RSV Vaccine (1 - 1-d ose 75+ series) RSV Vaccine (1 - 1-dose 75+ series) [facility] Comment on above: Postponed from 03/01 (Declined at this time) Start: 08-04-2025 End: 08-04-2025 Patient encounter procedure 08/04/2025 11:00 AM EDT Office Visit [facility] [address] [place] [address] Savita Vega MD [address] [place] [address] 5 mo f/u [facility] Comment on above: 5 mo f/u Start: 08-02-2025 End: 08-02-2025 Patient encounter procedure 08/02/2025 10:40 AM EDT Office Visit [facility] [address] [facility], [place] [id number] Savita Vega MD [address] [place], [place] [phone] 5 mo f/u [facility] Comment on above: 5 mo f/u Start: 06-20-2025 Influenza vaccination [facility] Start: 03-10-2025 End: 03-10-2025 Patient encounter procedure 03/10/2025 11:00 AM EDT Office Visit [facility] [address] [facility] [place], [place] [id number] Savita Vega MD [address] [facility] [place] [address] [facility] Comment on above: 6 month follow up Start: 03-03-2025 End: 06-02-2025 CBC W Auto Differential panel - Blood COMPLETE BLOOD COUNT AND DIFFERENTIAL Lab Routine BENIGN HYPERTENSION Expected: 03/03/2025, Expires: 06/02/2025 [facility] Work Phone: Comment on above: Expected: 03/03/2025 , Expires: 06/02/2025 Start: 03-03-2025 End: 06-02-2025 Comprehensive metabolic 2000 panel - Serum or Plasma COMPREHENSIVE METABOLIC PANEL Lab Routine Hyperlipidemia, unspecified hyperlipidemia type Expected: 03/03/2025, Expires: 06/02/2025 [facility] Comment on above: Expected: 03/03/2025 , Expires: 06/02/2025 Start: 03-03-2025 End: 06-02-2025 Lipid 1996 panel - Serum or Plasma LIPID PANEL BASIC Lab Routine Hyperlipidemia, unspecified hyperlipidemia type Expected: 03/03/2025, Expires: 06/02/2025 [facility] Comment on above: Expected: 03/03/2025 , Expires: 06/02/2025 Start: 03-02-2025 Anxiety Screening Anxiety Screening [facility] Start: 03-02-2025 Depression Screening Depression Scre ening [facility] Start: 02-18-2025 DIABETES SCREEN DIABETES SCREEN [facility] Start: 10-20-2024 Advance Directive Discussion Advance Directive Discussion [facility] Start: 10-20-2024 Medicare Advantage A nnual Wellness Visit Medicare Advantage Annual Wellness Visit [facility] Start: 09-03-2024 End: 09-03-2024 Patient encounter procedure [facility] Comment on above: 6 month follow up Start: 08-29-2024 Covid-19 Vaccine () Covid-19 Vaccine () [facility] Comment on above: Postponed from 06/20 (Declined at this time) Start: 08-29-2024 RSV Vaccine (1 - 1-d ose 60+ series) RSV Vaccine (1 - 1-dose 60+ series) [facility] Comment on above: Postponed from 03/01 (Declined at this time) Start: 08-29-2024 RSV Vaccine (1 - 1-d ose 75+ series) RSV Vaccine (1 - 1-dose 75+ series) [facility] Comment on above: Postponed from 03/01 (Declined at this time) Start: 06-20-2024 Covid-19 Vaccine () Covid-19 Vaccine () [facility] Start: 06-20-2024 Covid-19 Vaccine () Covid-19 Vaccine () [facility] Start: 06-20-2024 Influenza vaccination [facility] Start: 02-26-2024 COVID-19 VACCINE (4 - Booster for Moderna series) COVID-19 VACCINE (4 - Booster for Moderna series) [facility] Comment on above: Postponed from 11/18 (Declined at this time) Start: 02-26-2024 Covid-19 Vaccine (4 - Moderna series) Covid-19 Vaccine (4 - Moderna series) [facility] Comment on above: Postponed from 11/18 (Declined at this time) Start: 02-23-2024 DIABETES SCREEN DIABETES SCREEN [facility] Start: 10-20-2023 Advance Directive Discussion Advance Directive Discussion [facility] Start: 06-20-2023 Covid-19 Vaccine () Covid-19 Vaccine () [facility] Start: 06-20-2023 Influenza vaccination Influenza Vacc ine (#1) [facility] Start: 02-25-2023 Adult depression screening assessment DEPRESSION SCREENING [facility] Start: 02-25-2023 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 MAGDY DISEASE VISIT ANNUAL PCP TEAM CHRONIC DISEASE VISIT [facility] Start: 02-23-2023 End: 04-25-2023 CBC W Auto Differential panel - Blood CBC + DIFF Lab Routine GERD without esophagitis Arthritis Expected: 02/23/2023 (Approximate), Expires: 04/25/2023 [facility] Work Phone: Comment on above: Expected: 02/23/2023 (Approximate), Expires: 04/25/2023 Start: 02-23-2023 End: 04-25-2023 Comprehensive metabolic 2000 panel - Serum or Plasma COMP METABOLIC PANEL Lab Routine Essential hypertension, benign Expected: 02/23/2023 (Approximate), Expires: 04/25/2023 [facility] Work Phone: Comment on above: Expected: 02/23/2023 (Approximate), Expires: 04/25/2023 Start: 02-23-2023 End: 04-25-2023 Lipid 1996 panel - Serum or Plasma LIPID PANEL BASIC Lab Routine Essential hypertension, benign Expected: 02/23/2023 (Approximate), Expires: 04/25/2023 [facility] Work Phone: Comment on above: Expected: 02/23/2023 (Approximate), Expires: 04/25/2023 Start: 12-19-2022 End: 01-02-2023 Influenza virus A and B RNA and SARS-CoV-2 (COVID-19) N gene panel - Respiratory specimen by JASON with probe detection [facility] Work Phone: Comment on above: Expected: 12/19/2022 , Expires: 01/02/2023 Start: 10-20-2022 ADVANCE DIRECTIVE DISCUSSION ADVANCE DIRECTIVE DISCUSSION [facility] Start: 10-20-2022 DEPRESSION ASSESSMENT DEPRESSION ASS ESSMENT [facility] Start: 08-24-2022 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 ANNUAL PCP TEAM CHRONIC DISEASE VISIT [facility] Start: 08-24-2022 BP CONTROLLED (<130/80) BP CONTROLLE D (<130/80) [facility] Start: 06-20-2022 Influenza vaccination INFLUENZA (#1) [facility] Start: 01-22-2022 COVID-19 VACCINE (4 - Booster for Moderna series) COVID-19 VACCINE (4 - Booster for Moderna series) [facility] Start: 11-18-2021 COVID-19 VACCINE (4 - Booster for Moderna series) COVID-19 VACCINE (4 - Booster for Moderna series) [facility] Start: 10-20-2021 ADVANCE DIRECTIVE DISCUSSION ADVANCE DIRECTIVE DISCUSSION [facility] Start: 07-17-2021 COVID-19 VACCINE (3 - Booster for Moderna series) COVID-19 VACCINE (3 - Booster for Moderna series) [facility] Start: 05-28-2020 Urine microalbumin profile DTAP,TDAP,TD (2 - Td or Tdap) [facility] Start: 12-25-2019 Adult depression screening assessment DEPRESSION SCREENING [facility] Start: 2016 RSV Vaccine (1 - 1-d ose 75+ series) RSV Vaccine (1 - 1-dose 75+ series) [facility] Start: 2001 RSV Vaccine (1 - 1-d ose 60+ series) RSV Vaccine (1 - 1-dose 60+ series) [facility] Start: 1959 BP CONTROLLED (<130/80) BP CONTROLLE D (<130/80) [facility] Patient Education ED Laceration Face Suture or ... [facility] Work Phone: Patient referral [facility] Work Phone: End: 12-12-2023 Us abdominal real time w/image limited US ABD RT UPPER QUADRANT Radiology Routine Abdominal mass of other site 1 Occurrences starting 11/12/2022 until 12/12/2023 [facility] Work Phone: Comment on above: 1 Occurrences starti ng 11/12/2022 until 12/12/2023 End: 12-12-2023 Us retroperitoneal real time w/image limited US ABD AORTA Radiology Routine Abdominal mass of other site 1 Occurrences starting 11/12/2022 until 12/12/2023 [facility] Work Phone: Comment on above: 1 Occurrences starti ng 11/12/2022 until 12/12/2023 [facility] Immunizations Immunization Date Immunization Notes Care Provider Fa jean 06-06-2025 respiratory syncytia l virus (RSV) vaccine, bivalent (ABRYSVO) Savita Vega MD Work Phone: [facility] 07-17-2022 influenza, high dose seasonal, preservative-free Savita Vega MD Work Phone: [facility] 07-17-2022 influenza virus vacc ine, unspecified formulation Savita Vega MD Work Phone: [facility] 04-18-2022 tetanus toxoid, redu susu diphtheria toxoid, and acellular pertussis vaccine, adsorbed [facility] 07-19-2021 influenza, high dose seasonal, preservative-free Savita Vega MD Work Phone: [facility] 02-14-2021 COVID-19 vaccine, fu ll dose (MODERNA) Savita Vega MD Work Phone: [facility] 01-17-2021 COVID-19 vaccine, fu ll dose (MODERNA) Savita Vega MD Work Phone: [facility] 06-22-2019 zoster vaccine recombinant Savita Vega MD Work Phone: [facility] 12-24-2018 zoster vaccine recombinant Savita Vega MD Work Phone: [facility] 07-19-2018 influenza, high dose seasonal, preservative-free Savita Vega MD Work Phone: [facility] 07-19-2016 influenza, high dose seasonal, preservative-free Savita Vega MD Work Phone: [facility] 12-20-2015 pneumococcal polysaccharide vaccine, 23 valent Savita Vega MD Work Phone: [facility] 01-05-2015 pneumococcal conjuga te vaccine, 13 valent Savita Vega MD Work Phone: [facility] 07-20-2013 influenza virus vacc ine, unspecified formulation Savita Vega MD Work Phone: [facility] 07-27-2012 zoster vaccine, live Savita sanford MD Work Phone: [facility] 05-28-2010 tetanus toxoid, redu susu diphtheria toxoid, and acellular pertussis vaccine, adsorbed Savita Vega MD Work Phone: [facility] 07-28-2009 influenza virus vacc ine, unspecified formulation Savita Vega MD Work Phone: [facility] 09-19-2004 pneumococcal polysaccharide vaccine, 23 valent Kermit Marino APRN.CNP Work Phone: [facility] Payers Date Payer Category Payer Self-pay [id number] 2021 Medicare AETNA MEDICARE A ETNA MEDICARE PPO [id number] 2021-Present [phone] [id number] [place] [id number] [facility] [id number] 2021 Medicare AETNA MEDICARE A ETNA MEDICARE PPO [id number] 2021-Present [phone] [address] [place] [address] PP [id number] 2021 Medicare (Managed Care) [facility] [id number] 2021 Private Health Insurance 101 [id number] Medicare [id number] Unknown [id number] Unknown [id number] Unknown [id number] Social History Date Type Detail Facility Start: 08-26-2022 Tobacco smoking stat NHIS Never smoked tobacco [facility] Start: 08-24-2021 End: 03-10-2025 Alcohol intake Current drinker of alcohol (finding) [facility] Start: 1940 Sex Assigned At Not on file [facility] Start: 02-15-2022 End: 08-26-2022 Exposure to SARS-CoV-2 (event) Not sure [facility] Start: 04-18-2022 End: 09-09-2022 Tobacco smoking status NHIS Unknown if ever smoked [facility] Work Phone: Start: 1940 Sex Assigned At Female W [facility] Work Phone: Start: 08-26-2022 Tobacco use and exposure Smokeless tobacco non-user [facility] Start: 02-25-2023 End: 03-10-2025 History of Social function [facility] Work Phone: Start: 02-25-2023 End: 03-10-2025 Tobacco use panel [facility] Work Phone: Start: 09-20-2012 Adult Depression Screening Assessment 0 [facility] Work Phone: Functional Status Date Assessment Result Facility 01-20-2015 Are you deaf, or do you have serious difficulty hearing No 01/20/2015 3:43 PM EDT Joann Anne MA [facility] 01-20-2015 Are you blind, or do you have serious difficulty seeing, even when wearing glasses No 01/20/2015 3:43 PM EDT Joann Anne MA No [facility] 01-20-2015 Do you have serious difficulty walking or climbing stairs No 01/20/2015 3:43 PM EDT Joann Anne MA [facility] 01-20-2015 Do you have difficul ty dressing or bathing No 01/20/2015 3:43 PM EDT Joann Anne MA No [facility] 01-20-2015 Because of a physica l, mental, or emotional condition, do you have difficulty doing errands alone such as visiting a physician's office or shopping No 01/20/2015 3:43 PM EDT Joann Anne MA [facility] Mental Status Date Assessment Result Facility 01-20-2015 Because of a physica l, mental, or emotional condition, do you have serious difficulty concentrating, remembering, or making decisions No 01/20/2015 3:43 PM EDT Joann Anne MA [facility] Clinical Notes 03-26-2006 to 08-04-2025 Telephone Encounter - Luigi Romeo APRN.[facility] - 06/22/2025 1:31 PM EDTTelephone Encounter - Luigi Romeo APRN.[facility] - 06/22/2025 1:31 PM EDTTelephone Encounter - Miguelina Godinez - 03/29/2025 9:31 AM EDT Note Date & Type Note Facility 08-04-2025 Note HNO ID: [id number] Author: SAVITA VEGA MD Service: ? Author Type: Physician Type: Progress Notes Filed: 08/04/2025 14:19 Note Text: Chief Complaint Patient presents with: Follow Up: 5 month follow up Recording using [employer] software for draft documentation of the visit was discussed with the patient/authorized printing supplies sales representative; all questions welcomed and answered. Patient/authorized printing supplies sales representative agreed to proceed HPI Shruthi Horvath is a 85 year old female who presents here today for 5 month follow up. No bowel, Gi, or urinary issues. Taking Ditropan 5 mg daily for OAB. Shruthi reports that her antihypertensive medications, Monopril 20 mg and amlodipine 10 mg, are effectively managing her blood pressure, which today is recorded at 110/70 mmHg. She recalls a single episode of lightheadedness that lasted approximately 10 seconds, but denies recurrent episodes. GERD: Stable on Protonix 40 mg daily. Anemia: taking Iron daily. Monitored with labs. Lipid: Tries to watch diet. Does not take any cholesterol medications. Has FHx of CVA. She walks daily. For arthritis management, she takes meloxicam on an as-needed basis, approximately once a month, when the pain becomes intolerable. She experiences pain in her upper arm and shoulder, but denies dependence on the medication. She also notes that her fingers are crooked but remain pain-free as long as they are kept warm, for which she wears gloves during the winter. Shruthi has a known heart murmur, first identified by a parking attendant in 2017 during an evaluation for pneumonia. She is under the care of Dr. Hooker and his nurse practitioner, Yari Jose, for this condition. She reports that her last echocardiogram was performed a couple of years ago, and she was informed that the results were satisfactory. She has a follow-up appointment scheduled with Dr. Barrera in December. Past medical history, appointments, medications, allergies reviewed. Previous Medical History PAST MEDICAL HISTORY Diagnosis Date Diverticulosis of colon (without mention of hemorrhage) Essential hypertension, benign Family history of malignant neoplasm of gastrointestinal tract Generalized osteoarthrosis, unspecified site Stomach ulcer Previous Surgical History PAST SURGICAL HISTORY Procedure Laterality Date COLONOSCOPY FLX DX W/COLLJ SPEC WHEN PFRMD 01/15/06 Normal - Repeat in 5 years, X-3 COLONOSCOPY FLX DX W/COLLJ SPEC WHEN PFRMD 04/18/11 LIG/TRNSXJ FLP TUBE ABDL/VAG APPR UNI/BI 1979 Tubal ligation PAST SURGICAL HISTORY OF 03/[address] Garland PAST SURGICAL HISTORY OF 05/[address] Garland Family History FAMILY HISTORY Problem Relation Age of Onset Cancer Mother COLON CANCER - at 80yo Stroke Father Patient Allergies ALLERGIES Allergen Reactions Ibuprofen GI Upset Bleeding Ulcer Current Medications Current Outpatient Medications on File Prior to Visit Medication Sig amLODIPine (NORVASC) 10 mg tablet Take 1 tablet by mouth once daily. meloxicam (MOBIC) 15 mg tablet Take 1 tablet by mouth as needed. Take with food. Fosinopril Sodium (MONOPRIL) 20 mg tablet Take 1 tablet by mouth once daily. pantoprazole DR (PROTONIX) 40 mg tablet Take one tablet po every day oxybutynin XL (DITROPAN XL) 5 mg 24 hr tablet Take 1 tablet by mouth daily at bedtime. yxtslgiv-bvr-tkhd-FA-lutein (CENTRUM SILVER WOMEN) 8 mg iron-400 mcg-300 mcg tab Take 1 tablet by mouth once daily. ferrous sulfate 325 mg (65 mg iron) tablet Take 1 tablet by mouth daily with breakfast. calcium carbonate-vitamin d2 (OS-MIHAELA 500 W/D) 500 mg(1,250mg) -200 unit tab Take 3 tablets by mouth once daily. GLUCOSAMINE CHONDROITIN SMCONC 750 MG-600 MG-55 MG-5 MG TAB Take 2 tabs daily No current facility-administered medications on file prior to visit. Social History SOCIAL HISTORY[1] EXAM: BP 110/70 Pulse 86 Resp 16 Wt 51.8 kg (114 lb 3.2 oz) SpO2 100% BMI 21.02 kg/m? General Appearance: Well appearing, alert, in no acute distress, well-hydrated, well nourished.. Lungs: Lungs clear to auscultation. No wheezing, rhonchi, rales.. Heart: RRR without murmur, gallop, or rubs. No ectopy. Health Maintenance List Advance Directive Discussion due on 10/20/2024 Medicare Advantage Annual Wellness Visit Never done Covid-19 Vaccine( season) due on 06/20/2025 Depression Screening due on 03/10/2026 Anxiety Screening due on 03/10/2026 Diabetes Screening due on 02/29/2028 DTaP,Tdap,Td Vaccine(3 - Td or Tdap) due on 04/18/2032 Bone Density Screening Completed Influenza Vaccine Completed RSV Vaccine Completed Shingrix Vaccine Completed Pneumococcal Vaccine: 50+ Completed Colorectal Cancer Screening Discontinued Data reviewed none 1. Essential hypertension Blood pressure well controlled on current regimen (Monopril 20 mg and amlodipine 10 mg); one brief episode of lightheadedness reported, lasting appro (more content not included)... [facility] 06-22-2025 Telephone encounter Note The following approved medication requests have been transmitted electronically. Requested Prescriptions Pending Prescriptions Disp Refills amLODIPine (NORVASC) 10 mg tablet 90 tablet 1 Sig: Take 1 tablet by mouth once daily. Luigi Romeo APRN.CNP [facility] 06-22-2025 Miscellaneous Notes The following approved medication requests have been transmitted electronically. Requested Prescriptions Pending Prescriptions Disp Refills amLODIPine (NORVASC) 10 mg tablet 90 tablet 1 Sig: Take 1 tablet by mouth once daily. Luigi Romeo APRN.CNP Prescription Refill Information The patient has been identified by name and date of : Yes Caregiver verified no other encounters exist for this prescription request: Yes Caregiver confirmed with patient/requestor that no other refills are due, in the near future, with this provider at this time: Yes The last office visit in the department: 03/10/25 Does the patient have a future office visit with this provider/department: Yes Requested Prescriptions Pending Prescriptions Disp Refills amLODIPine (NORVASC) 10 mg tablet 90 tablet 3 Sig: Take 1 tablet by mouth once daily. Please send today if possible. Not out of medication but may be going to the Pharmacy. Glenys Nagy June 21, 2025 11:38 AM documented in this encounter [facility] 06-21-2025 Telephone encounter Note Prescription Refill Information The patient has been identified by name and date of : Yes Caregiver verified no other encounters exist for this prescription request: Yes Caregiver confirmed with patient/requestor that no other refills are due, in the near future, with this provider at this time: Yes The last office visit in the department: 03/10/25 Does the patient have a future office visit with this provider/department: Yes Requested Prescriptions Pending Prescriptions Disp Refills amLODIPine (NORVASC) 10 mg tablet 90 tablet 3 Sig: Take 1 tablet by mouth once daily. Please send today if possible. Not out of medication but may be going to the Pharmacy. Glenys Nagy June 21, 2025 11:38 AM [facility] 03-29-2025 Miscellaneous Notes OK to refill as ordered Savita Vega MD Prescription Refill Information The patient has been identified by name and date of : Yes Caregiver verified no other encounters exist for this prescription request: Yes Caregiver confirmed with patient/requestor that no other refills are due, in the near future, with this provider at this time: Yes The last office visit in the department: 03-10-25 Does the patient have a future office visit with this provider/department: Yes Requested Prescriptions Pending Prescriptions Disp Refills meloxicam (MOBIC) 15 mg tablet 30 tablet 1 Sig: Take 1 tablet by mouth as needed. Take with food. Miguelina Godinez March 29, 2025 9:31 AM documented in this encounter [facility] 03-29-2025 Telephone encounter Note OK to refill as ordered Savita Vega MD [facility] 03-29-2025 Telephone encounter Note Prescription Refill Information The patient has been identified by name and date of : Yes Caregiver verified no other encounters exist for this prescription request: Yes Caregiver confirmed with patient/requestor that no other refills are due, in the near future, with this provider at this time: Yes The last office visit in the department: 03-10-25 Does the patient have a future office visit with this provider/department: Yes Requested Prescriptions Pending Prescriptions Disp Refills meloxicam (MOBIC) 15 mg tablet 30 tablet 1 Sig: Take 1 tablet by mouth as needed. Take with food. Miguelina Godinez March 29, 2025 9:31 AM [facility] 03-10-2025 Note HNO ID: [id number] Author: SAVITA VEGA MD Service: ? Author Type: Physician Type: Progress Notes Filed: 03/10/2025 11:23 Note Text: Chief Complaint Patient presents with: F/U 6 Month HPI Shruthi Horvath is a 85 year old female who presents here today for a 6 month follow up. Pt here today for her routine visit. Has family members who are in there late 90's and one family member who's 100 and lives out of state. She talks to them on the phone. Uro - Hx of urinary frequency and waking her up multiple times a night. Improved with taking Ditropan XL 5 mg at bedtime. GERD - Taking Protonix 40 mg daily. Symptoms controlled with use of medication. Hx of GI bleed, no issues. HTN - Denies checking BP at home, or having chest pain, sob, or dizziness. Taking Norvasc 10 mg and Monopril 20 mg daily. Following with [facility], annually. Lipid - FHx of CVA, always watching her cholesterol. Watches what she eats, limits sodium intake and avoids fried foods. Reports she can't eat as much during a sitting, but eats through out the day. Notes if she eats too much at one time, it goes right through her. Stays active with walking daily, unless the weather is bad. Does a lot of gardening. Arthritis - Stable with taking Meloxicam 15 mg daily as needed. Anemia - Taking Ferrous Sulfate 325 mg daily in the morning. Hx of GI bleed due to taking too much Ibuprofen. HM - Declines Covid vaccine and RSV today. Does have Adv Dir/Living Will. Depression/Anxiety screening, negative. Past medical history, appointments, medications, allergies reviewed. Previous Medical History PAST MEDICAL HISTORY Diagnosis Date Diverticulosis of colon (without mention of hemorrhage) Essential hypertension, benign Family history of malignant neoplasm of gastrointestinal tract Generalized osteoarthrosis, unspecified site Stomach ulcer Previous Surgical History PAST SURGICAL HISTORY Procedure Laterality Date COLONOSCOPY FLX DX W/COLLJ SPEC WHEN PFRMD 01/15/06 Normal - Repeat in 5 years, X-3 COLONOSCOPY FLX DX W/COLLJ SPEC WHEN PFRMD 04/18/11 LIG/TRNSXJ FLP TUBE ABDL/VAG APPR UNI/BI 1979 Tubal ligation PAST SURGICAL HISTORY OF 03/[address] Garland PAST SURGICAL HISTORY OF 05/[address] Garland Family History FAMILY HISTORY Problem Relation Age of Onset Cancer Mother COLON CANCER - at 80yo Stroke Father Patient Allergies ALLERGIES Allergen Reactions Ibuprofen GI Upset Bleeding Ulcer Current Medications Current Outpatient Medications on File Prior to Visit Medication Sig pantoprazole DR (PROTONIX) 40 mg tablet Take one tablet po every day oxybutynin XL (DITROPAN XL) 5 mg 24 hr tablet Take 1 tablet by mouth daily at bedtime. meloxicam (MOBIC) 15 mg tablet Take 1 tablet by mouth as needed. Take with food. amLODIPine (NORVASC) 10 mg tablet Take 1 tablet by mouth once daily. Fosinopril Sodium (MONOPRIL) 20 mg tablet Take 1 tablet by mouth once daily. xucchwtf-phc-eens-FA-lutein (CENTRUM SILVER WOMEN) 8 mg iron-400 mcg-300 mcg tab Take 1 tablet by mouth once daily. ferrous sulfate 325 mg (65 mg iron) tablet Take 1 tablet by mouth daily with breakfast. calcium carbonate-vitamin d2 (OS-MIHAELA 500 W/D) 500 mg(1,250mg) -200 unit tab Take 3 tablets by mouth once daily. GLUCOSAMINE CHONDROITIN SMCONC 750 MG-600 MG-55 MG-5 MG TAB Take 2 tabs daily No current facility-administered medications on file prior to visit. Social History Social History Tobacco Use Smoking status: Never Smokeless tobacco: Never Vaping Use Vaping status: Never Used Substance Use Topics Alcohol use: Yes Comment: occassionally Drug use: No EXAM: BP 118/66 (BP Site: Left Arm, BP Position: Sitting, BP Cuff Size: Regular Adult) Pulse 80 Resp 16 Wt 51.8 kg (114 lb 3.2 oz) BMI 21.02 kg/m? General Appearance: Well appearing, alert, in no acute distress, well-hydrated, well nourished.. Lungs: Lungs clear to auscultation. No wheezing, rhonchi, rales.. Heart: RRR without murmur, gallop, or rubs. No ectopy. Health Maintenance List RSV Vaccine(1 - 1-dose 75+ series) Never done Covid-19 Vaccine( season) due on 06/20/2024 Advance Directive Discussion due on 10/20/2024 Depression Screening due on 03/02/2025 Anxiety Screening due on 03/02/2025 Influenza Vaccine(Season Ended) due on 06/20/2025 Diabetes Screening due on 02/29/2028 DTaP,Tdap,Td Vaccine(3 - Td or Tdap) due on 04/18/2032 Bone Density Screening Completed Shingrix Vaccine Completed Pneumococcal Vaccine: 50+ Completed Colorectal Cancer Screening Discontinued Data reviewed Results Only on 02/28/2025 Component Date Value WBC 02/28/2025 7.25 RBC 02/28/2025 4.44 Hemoglobin 02/28/2025 13.9 Hematocrit 02/28/2025 42.2 MCV 02/28/2025 95.0 MCH 02/28/2025 31.3 MCHC 02/28/2025 32.9 RDW-CV 02/28/2025 12.6 Platelet Count 02/28/2025 369 MPV 02/28/2025 10.3 Neutrophils (more content not included)... [facility] 10-15-2024 Telephone encounter Note OK to refill as ordered Savita Vega MD [facility] 10-15-2024 Miscellaneous Notes OK to refill as ordered Savita Vega MD Prescription Refill Information The patient has been identified by name and date of : Yes Caregiver verified no other encounters exist for this prescription request: Yes Caregiver confirmed with patient/requestor that no other refills are due, in the near future, with this provider at this time: Yes The last office visit in the department: 09/03/2024 Does the patient have a future office visit with this provider/department: Yes Requested Prescriptions Pending Prescriptions Disp Refills pantoprazole DR (PROTONIX) 40 mg tablet 30 tablet 11 Sig: Take one tablet po every day Meche Guzman [facility] October 15, 2024 8:42 AM documented in this encounter [facility] 10-15-2024 Telephone encounter Note Prescription Refill Information The patient has been identified by name and date of : Yes Caregiver verified no other encounters exist for this prescription request: Yes Caregiver confirmed with patient/requestor that no other refills are due, in the near future, with this provider at this time: Yes The last office visit in the department: 09/03/2024 Does the patient have a future office visit with this provider/department: Yes Requested Prescriptions Pending Prescriptions Disp Refills pantoprazole DR (PROTONIX) 40 mg tablet 30 tablet 11 Sig: Take one tablet po every day [facility] 8:42 AM [facility] 09-03-2024 Instructions Cheyenne Hernandez APRN.CNP - 09/03/2024 11:47 AM EST Get fasting labs completed in 6 months prior to next visit Continue to take all medication as prescribed. Keep scheduled appointments with Cardiology May consider RSV vaccine in the future, may get at pharmacy. Follow up in 6 months or sooner as needed. documented in this encounter [facility] 09-03-2024 History of Presen t illness Narrative This is a 84 year old female who presents today with: Patient presents with: 6 Month Exam HISTORY OF PRESENT ILLNESS: Shruthi Horvath is a 84 year old female. Patient presents with: 6 Month Exam 6 month follow up GERD: Taking Protonix 40 mg daily. Well controlled with medication. HTN: Taking Norvasc 10 mg and Monopril 20 mg daily. Not currently checking blood pressure at home. Denies chest pain, palpitations, dizziness, or edema. Following with [facility], annually. Arthritis: Taking meloxicam 15 mg daily as needed. Urinary frequency: Taking Ditropan XL 5 mg at bedtime. JAMES: Taking ferrous sulfate 325 mg daily with breakfast. Vaccines: May consider RSV in the future PAST MEDICAL HISTORY: PAST MEDICAL HISTORY Diagnosis Date Diverticulosis of colon (without mention of hemorrhage) Essential hypertension, benign Family history of malignant neoplasm of gastrointestinal tract Generalized osteoarthrosis, unspecified site Stomach ulcer PAST SURGICAL HISTORY Procedure Laterality Date COLONOSCOPY FLX DX W/COLLJ SPEC WHEN PFRMD 01/15/06 Normal - Repeat in 5 years, X-3 COLONOSCOPY FLX DX W/COLLJ SPEC WHEN PFRMD 04/18/11 LIG/TRNSXJ FLP TUBE ABDL/VAG APPR UNI/BI 1979 Tubal ligation PAST SURGICAL HISTORY OF 03/[address] Garland PAST SURGICAL HISTORY OF 05/[address] Garland ALLERGIES Ibuprofen MEDICATIONS Current Outpatient Medications Medication Sig oxybutynin XL (DITROPAN XL) 5 mg 24 hr tablet Take 1 tablet by mouth daily at bedtime. meloxicam (MOBIC) 15 mg tablet Take 1 tablet by mouth as needed. Take with food. amLODIPine (NORVASC) 10 mg tablet Take 1 tablet by mouth once daily. Fosinopril Sodium (MONOPRIL) 20 mg tablet Take 1 tablet by mouth once daily. pantoprazole DR (PROTONIX) 40 mg tablet Take one tablet po every day skocxubp-ljd-myub-FA-lutein (CENTRUM SILVER WOMEN) 8 mg iron-400 mcg-300 mcg tab Take 1 tablet by mouth once daily. ferrous sulfate 325 mg (65 mg iron) tablet Take 1 tablet by mouth daily with breakfast. calcium carbonate-vitamin d2 (OS-MIHAELA 500 W/D) 500 mg(1,250mg) -200 unit tab Take 3 tablets by mouth once daily. GLUCOSAMINE CHONDROITIN SMCONC 750 MG-600 MG-55 MG-5 MG TAB Take 2 tabs daily No current facility-administered medications for this visit. FAMILY HISTORY Problem Relation Age of Onset Cancer Mother COLON CANCER - at 80yo Stroke Father Social History Tobacco Use Smoking status: Never Smokeless tobacco: Never Vaping Use Vaping status: Never Used Substance Use Topics Alcohol use: Yes Comment: occassionally Drug use: No REVIEW OF SYSTEMS GENERAL: No weight loss, malaise or fevers/chills HEENT: Negative for frequent or significant headaches, No changes in hearing or vision. NECK: Negative for lumps, goiter, pain and significant neck swelling RESPIRATORY: Negative for cough, hemoptysis, wheezing, dyspnea or shortness of breath CARDIOVASCULAR: Negative for chest pain, leg swelling, orthopnea, or palpitations GI: No nausea, vomiting, or diarrhea/constipation. No hematochezia/melena. No heartburn or reflux symptoms. : No history of dysuria, frequency or incontinence MUSCULOSKELETAL: Negative for joint pain or swelling. SKIN: Negative for lesions, rash, and itching ENDOCRINE: Negative for cold or heat intolerance, polyuria, polydipsia and goiter NEURO: No history of headaches, syncope, paralysis, seizures or tremors MOOD: Negative for depression, anxiety, or suicidal ideation. EXAM: BP 118/66 Pulse 91 Resp 16 Wt 51.8 kg (114 lb 3.2 oz) SpO2 99% BMI 21.02 kg/m PHYSICAL EXAM: General Appearance: Well appearing, alert, in no acute distress, well-hydrated, well nourished. Skin: Skin color, texture, turgor normal, no suspicious rashes or lesions. Head: Normocephalic, no masses, lesions, tenderness or abnormalities. Eyes: Anicteric sclera. Extraocular movements are intact. Lungs: Lungs clear to auscultation. No wheezing, rhonchi, rales. Heart: RRR without murmur, gallop, or rubs. No ectopy. Extremities: No deformities, edema, skin discoloration, clubbing or cyanosis. Good capillary refill. Peripheral Pulses: Normal, Capillary refill <2secs, strong peripheral pulses, Pulses palpable. Neurologic: Gait normal. Sensation grossly intact. ASSESSMENT/PLAN: 1. BENIGN HYPERTENSION - ICD9: 401.1, ICD10: I10 (primary diagnosis) - Controlled - Continue current medications - Recommend home blood pressure monitoring, to bring results to next visit - Encouraged sodium restriction, DASH or Mediterranean diet - Recommend regular aerobic exercise - COMPLETE BLOOD COUNT AND DIFFERENTIAL 2. Hyperlipidemia, unspecified hyperlipidemia type - ICD9: 272.4, ICD10: E78.5 - Control undetermined, due for labs - Counseled on healthy diet and regular exercise - LIPID PANEL BASIC - COMPREHENSIVE METABOLIC PANEL 3. GERD without esophagitis - ICD9: 530.81, ICD10: K21.9 - Stable, continue to take current medication. 4. Arthritis - ICD9: 716.90, ICD10: M19.90 - Stable, continue to take meloxicam as needed. 5. Urinary frequency - ICD9: 788.41, ICD10: R35.0 - Stable, continue take current medication. 6. Iron deficiency anemia, unspecified iron deficiency anemia type - ICD9: 280.9, ICD10: D50.9 - Stable, continue take current medication. 7. Contact dermatitis due to poison jose - ICD9: 692.6, ICD10: L23.7 - Refill provided. - BETAMETHASONE DIPROPIONATE 0.05 % TOPICAL CREAM Follow-up in 6 months or sooner as needed. Discussed treatment plan and patient voices understanding. Patient's questions answered appropriately. Medications and potential side effects were discussed and patient voices understanding. Cheyenne Hernandez APRN.CHRISTINA This note was partially generated using [employer] voice recognition system. Note was reviewed for accuracy. There may be minor misspellings or grammar miscues with [employer] voice recognition. documented in this encounter [facility] 09-03-2024 Note HNO ID: [id number] Author: CHEYENNE HERNANDEZ APRN.CHRISTINA Service: ? Author Type: Nurse Practitioner Type: Progress Notes Filed: 09/03/2024 12:49 Note Text: This is a 84 year old female who presents today with: Patient presents with: 6 Month Exam HISTORY OF PRESENT ILLNESS: Shruthi Horvath is a 84 year old female. Patient presents with: 6 Month Exam 6 month follow up GERD: Taking Protonix 40 mg daily. Well controlled with medication. HTN: Taking Norvasc 10 mg and Monopril 20 mg daily. Not currently checking blood pressure at home. Denies chest pain, palpitations, dizziness, or edema. Following with [facility], annually. Arthritis: Taking meloxicam 15 mg daily as needed. Urinary frequency: Taking Ditropan XL 5 mg at bedtime. JAMES: Taking ferrous sulfate 325 mg daily with breakfast. Vaccines: May consider RSV in the future PAST MEDICAL HISTORY: PAST MEDICAL HISTORY Diagnosis Date Diverticulosis of colon (without mention of hemorrhage) Essential hypertension, benign Family history of malignant neoplasm of gastrointestinal tract Generalized osteoarthrosis, unspecified site Stomach ulcer PAST SURGICAL HISTORY Procedure Laterality Date COLONOSCOPY FLX DX W/COLLJ SPEC WHEN PFRMD 01/15/06 Normal - Repeat in 5 years, X-3 COLONOSCOPY FLX DX W/COLLJ SPEC WHEN PFRMD 04/18/11 LIG/TRNSXJ FLP TUBE ABDL/VAG APPR UNI/BI 1979 Tubal ligation PAST SURGICAL HISTORY OF 03/[address] Garland PAST SURGICAL HISTORY OF 05/[address] Garland ALLERGIES Ibuprofen MEDICATIONS Current Outpatient Medications Medication Sig oxybutynin XL (DITROPAN XL) 5 mg 24 hr tablet Take 1 tablet by mouth daily at bedtime. meloxicam (MOBIC) 15 mg tablet Take 1 tablet by mouth as needed. Take with food. amLODIPine (NORVASC) 10 mg tablet Take 1 tablet by mouth once daily. Fosinopril Sodium (MONOPRIL) 20 mg tablet Take 1 tablet by mouth once daily. pantoprazole DR (PROTONIX) 40 mg tablet Take one tablet po every day ylymjbwj-sdf-vafy-FA-lutein (CENTRUM SILVER WOMEN) 8 mg iron-400 mcg-300 mcg tab Take 1 tablet by mouth once daily. ferrous sulfate 325 mg (65 mg iron) tablet Take 1 tablet by mouth daily with breakfast. calcium carbonate-vitamin d2 (OS-MIHAELA 500 W/D) 500 mg(1,250mg) -200 unit tab Take 3 tablets by mouth once daily. GLUCOSAMINE CHONDROITIN SMCONC 750 MG-600 MG-55 MG-5 MG TAB Take 2 tabs daily No current facility-administered medications for this visit. FAMILY HISTORY Problem Relation Age of Onset Cancer Mother COLON CANCER - at 80yo Stroke Father Social History Tobacco Use Smoking status: Never Smokeless tobacco: Never Vaping Use Vaping status: Never Used Substance Use Topics Alcohol use: Yes Comment: occassionally Drug use: No REVIEW OF SYSTEMS GENERAL: No weight loss, malaise or fevers/chills HEENT: Negative for frequent or significant headaches, No changes in hearing or vision. NECK: Negative for lumps, goiter, pain and significant neck swelling RESPIRATORY: Negative for cough, hemoptysis, wheezing, dyspnea or shortness of breath CARDIOVASCULAR: Negative for chest pain, leg swelling, orthopnea, or palpitations GI: No nausea, vomiting, or diarrhea/constipation. No hematochezia/melena. No heartburn or reflux symptoms. : No history of dysuria, frequency or incontinence MUSCULOSKELETAL: Negative for joint pain or swelling. SKIN: Negative for lesions, rash, and itching ENDOCRINE: Negative for cold or heat intolerance, polyuria, polydipsia and goiter NEURO: No history of headaches, syncope, paralysis, seizures or tremors MOOD: Negative for depression, anxiety, or suicidal ideation. EXAM: BP 118/66 Pulse 91 Resp 16 Wt 51.8 kg (114 lb 3.2 oz) SpO2 99% BMI 21.02 kg/m? PHYSICAL EXAM: General Appearance: Well appearing, alert, in no acute distress, well-hydrated, well nourished. Skin: Skin color, texture, turgor normal, no suspicious rashes or lesions. Head: Normocephalic, no masses, lesions, tenderness or abnormalities. Eyes: Anicteric sclera. Extraocular movements are intact. Lungs: Lungs clear to auscultation. No wheezing, rhonchi, rales. Heart: RRR without murmur, gallop, or rubs. No ectopy. Extremities: No deformities, edema, skin discoloration, clubbing or cyanosis. Good capillary refill. Peripheral Pulses: Normal, Capillary refill <2secs, strong peripheral pulses, Pulses palpable. Neurologic: Gait normal. Sensation grossly intact. ASSESSMENT/PLAN: 1. BENIGN HYPERTENSION - ICD9: 401.1, ICD10: I10 (primary diagnosis) - Controlled - Continue current medications - Recommend home blood pressure monitoring, to bring results to next visit - Encouraged sodium restriction, DASH or Mediterranean diet - Recommend regular aerobic exercise - COMPLETE BLOOD COUNT AND DIFFERENTIAL 2. Hyperlipidemia, unspecified hyperlipidemia type - ICD9: 272.4, ICD10: E78.5 - Control undetermined, due for (more content not included)... [facility] 08-09-2024 Telephone encounter Note The following approved medication requests have been transmitted electronically. Requested Prescriptions Pending Prescriptions Disp Refills oxybutynin XL (DITROPAN XL) 5 mg 24 hr tablet 90 tablet 3 Sig: Take 1 tablet by mouth daily at bedtime. meloxicam (MOBIC) 15 mg tablet 30 tablet 1 Sig: Take 1 tablet by mouth as needed. Take with food. Luigi Romeo APRN.CNP [facility] 08-09-2024 Miscellaneous Notes The following approved medication requests have been transmitted electronically. Requested Prescriptions Pending Prescriptions Disp Refills oxybutynin XL (DITROPAN XL) 5 mg 24 hr tablet 90 tablet 3 Sig: Take 1 tablet by mouth daily at bedtime. meloxicam (MOBIC) 15 mg tablet 30 tablet 1 Sig: Take 1 tablet by mouth as needed. Take with food. Luigi Romeo APRN.CNP Patient has been identified by name and date of : Yes Patient phones for refill(s): Requested Prescriptions Pending Prescriptions Disp Refills oxybutynin XL (DITROPAN XL) 5 mg 24 hr tablet 90 tablet 3 Sig: Take 1 tablet by mouth daily at bedtime. meloxicam (MOBIC) 15 mg tablet 30 tablet 1 Sig: Take 1 tablet by mouth as needed. Take with food. Date of last office visit in primary care: 03/02/2024 Date of next office visit in primary care: 09/03/2024 Please advise. Thank you. Elysia Cabral. documented in this encounter [facility] 08-09-2024 Telephone encounter Note Patient has been identified by name and date of : Yes Patient phones for refill(s): Requested Prescriptions Pending Prescriptions Disp Refills oxybutynin XL (DITROPAN XL) 5 mg 24 hr tablet 90 tablet 3 Sig: Take 1 tablet by mouth daily at bedtime. meloxicam (MOBIC) 15 mg tablet 30 tablet 1 Sig: Take 1 tablet by mouth as needed. Take with food. Date of last office visit in primary care: 03/02/2024 Date of next office visit in primary care: 09/03/2024 Please advise. Thank you. Elysia Cabral. [facility] 07-12-2024 History of Presen t illness Narrative Subjective HPI Nontoxic-appearing female presents urgent care chief complaint cough. Duration of symptoms 3 days. Associated symptoms are cough nasal congestion. Presents today due to cough staying persistent. Sick contacts possible she was out over the weekend. Has been using Mucinex and cough suppressant lozenge or's this has helped. Overall feels well. Denies any fever body aches chills nausea vomiting abdominal pain productive cough chest pain shortness of breath pleuritic pain hemoptysis history of DVT PE recent cancers change in bowel or bladder habits. Past medical history prescription medications allergies reviewed. .Patient presents with: Cough: X 3 days PAST MEDICAL HISTORY Diagnosis Date Diverticulosis of colon (without mention of hemorrhage) Essential hypertension, benign Family history of malignant neoplasm of gastrointestinal tract Generalized osteoarthrosis, unspecified site Stomach ulcer PAST SURGICAL HISTORY Procedure Laterality Date COLONOSCOPY FLX DX W/COLLJ SPEC WHEN PFRMD 01/15/06 Normal - Repeat in 5 years, X-3 COLONOSCOPY FLX DX W/COLLJ SPEC WHEN PFRMD 04/18/11 LIG/TRNSXJ FLP TUBE ABDL/VAG APPR UNI/BI 1979 Tubal ligation PAST SURGICAL HISTORY OF 03/[address] Garland PAST SURGICAL HISTORY OF 05/[address] Garland ALLERGIES Ibuprofen MEDICATIONS amLODIPine (NORVASC) 10 mg tablet Take 1 tablet by mouth once daily. Fosinopril Sodium (MONOPRIL) 20 mg tablet Take 1 tablet by mouth once daily. pantoprazole DR (PROTONIX) 40 mg tablet Take one tablet po every day oxybutynin XL (DITROPAN XL) 5 mg 24 hr tablet Take 1 tablet by mouth daily at bedtime. meloxicam (MOBIC) 15 mg tablet Take 1 tablet by mouth as needed. Take with food. zwpoixoe-vou-qhtq-FA-lutein (CENTRUM SILVER WOMEN) 8 mg iron-400 mcg-300 mcg tab Take 1 tablet by mouth once daily. ferrous sulfate 325 mg (65 mg iron) tablet Take 1 tablet by mouth daily with breakfast. calcium carbonate-vitamin d2 (OS-MIHAELA 500 W/D) 500 mg(1,250mg) -200 unit tab Take 3 tablets by mouth once daily. GLUCOSAMINE CHONDROITIN SMCONC 750 MG-600 MG-55 MG-5 MG TAB Take 2 tabs daily FAMILY HISTORY Problem Relation Age of Onset Cancer Mother COLON CANCER - at 80yo Stroke Father Social History Tobacco Use Smoking status: Never Smokeless tobacco: Never Vaping Use Vaping status: Never Used Substance Use Topics Alcohol use: Yes Comment: occassionally Drug use: No BP 138/68 Pulse 92 Temp 36.5 C (97.7 F) (Left Tympanic) Resp 16 Wt 52.5 kg (115 lb 11.9 oz) SpO2 97% BMI 21.31 kg/m Review of Systems Constitutional: Negative for chills, fever and malaise/fatigue. HENT: Positive for congestion. Negative for ear discharge, ear pain, sinus pain and sore throat. Eyes: Negative for blurred vision, pain, discharge and redness. Respiratory: Positive for cough. Negative for hemoptysis, sputum production, shortness of breath, wheezing and stridor. Cardiovascular: Negative for chest pain. Gastrointestinal: Negative for abdominal pain, diarrhea, nausea and vomiting. Musculoskeletal: Negative for myalgias. Skin: Negative for itching and rash. Neurological: Negative for dizziness and headaches. Objective Physical Exam Constitutional: General: She is not in acute distress. Appearance: She is not diaphoretic. HENT: Head: Normocephalic. Jaw: No trismus, tenderness, swelling or pain on movement. Mouth/Throat: Mouth: Mucous membranes are moist. Pharynx: Oropharynx is clear. Uvula midline. No pharyngeal swelling, oropharyngeal exudate, posterior oropharyngeal erythema or uvula swelling. Eyes: Conjunctiva/sclera: Conjunctivae normal. Pupils: Pupils are equal, round, and reactive to light. Cardiovascular: Rate and Rhythm: Normal rate and regular rhythm. Heart sounds: Normal heart sounds. Pulmonary: Effort: Pulmonary effort is normal. No tachypnea, accessory muscle usage or respiratory distress. Breath sounds: Normal breath sounds. No stridor. No wheezing, rhonchi or rales. Abdominal: General: There is no distension. Palpations: Abdomen is soft. Tenderness: There is no abdominal tenderness. There is no guarding or rebound. Musculoskeletal: Cervical back: Normal range of motion and neck supple. No edema, erythema, rigidity or tenderness. No pain with movement. Normal range of motion. Lymphadenopathy: Cervical: No cervical adenopathy. Skin: General: Skin is warm and dry. Neurological: Mental Status: She is alert and oriented to person, place, and time. ASSESSMENT/PLAN: 1. URI with cough and congestion - ICD9: 465.9, ICD10: J06.9 Patient nontoxic-appearing. Hemodynamically stable. No advantageous lung sounds. Treat as viral etiology. Red flags for prompt ER evaluation discussed. Patient was educated on supportive therapies. Patient will follow up with primary care provider as needed. Patient was instructed to immediately proceed to emergency room for any new, worsening, or symptoms lasting longer than anticipated. The patient's clinical presentation is otherwise unremarkable at this time. Based on exam and clinical finding, the patient is stable for discharge. Plan of care was discussed with patient. Patient verbalizes understanding and agrees to plan of care. This note was generated using [employer] software. It may contain errors in wording, punctuation, or spelling. Kermit Marino APRN.CNP documented in this encounter [facility] 06-28-2024 Telephone encounter Note The following approved medication requests have been transmitted electronically. Requested Prescriptions Pending Prescriptions Disp Refills amLODIPine (NORVASC) 10 mg tablet 90 tablet 3 Sig: Take 1 tablet by mouth once daily. Luigi Romeo APRN.CNP [facility] 06-28-2024 Miscellaneous Notes The following approved medication requests have been transmitted electronically. Requested Prescriptions Pending Prescriptions Disp Refills amLODIPine (NORVASC) 10 mg tablet 90 tablet 3 Sig: Take 1 tablet by mouth once daily. Luigi Romeo APRN.CNP Prescription Refill Information The patient has been identified by name and date of : Yes Caregiver verified no other encounters exist for this prescription request: Yes Caregiver confirmed with patient/requestor that no other refills are due, in the near future, with this provider at this time: Yes The last office visit in the department: 03-02-24 Does the patient have a future office visit with this provider/department: Yes Requested Prescriptions Pending Prescriptions Disp Refills amLODIPine (NORVASC) 10 mg tablet 90 tablet 3 Sig: Take 1 tablet by mouth once daily. Betsy Nagy June 28, 2024 8:04 AM documented in this encounter [facility] 06-28-2024 Telephone encounter Note Prescription Refill Information The patient has been identified by name and date of : Yes Caregiver verified no other encounters exist for this prescription request: Yes Caregiver confirmed with patient/requestor that no other refills are due, in the near future, with this provider at this time: Yes The last office visit in the department: 03-02-24 Does the patient have a future office visit with this provider/department: Yes Requested Prescriptions Pending Prescriptions Disp Refills amLODIPine (NORVASC) 10 mg tablet 90 tablet 3 Sig: Take 1 tablet by mouth once daily. Betsy Nagy June 28, 2024 8:04 AM [facility] 03-25-2024 Telephone encounter Note OK to refill as ordered Savita Vega MD [facility] 03-25-2024 Miscellaneous Notes OK to refill as ordered Savita Vega MD Requesting 90 days Patient has been identified by name and date of : Yes Patient phones for refill(s): Requested Prescriptions Pending Prescriptions Disp Refills Fosinopril Sodium (MONOPRIL) 20 mg tablet 90 tablet 3 Sig: Take 1 tablet by mouth once daily. Date of last office visit in primary care: 03/02/2024 Date of next office visit in primary care: 09/03/2024 Please advise. Thank you. Elysia Cabral. documented in this encounter [facility] 03-25-2024 Telephone encounter Note Requesting 90 days Patient has been identified by name and date of : Yes Patient phones for refill(s): Requested Prescriptions Pending Prescriptions Disp Refills Fosinopril Sodium (MONOPRIL) 20 mg tablet 90 tablet 3 Sig: Take 1 tablet by mouth once daily. Date of last office visit in primary care: 03/02/2024 Date of next office visit in primary care: 09/03/2024 Please advise. Thank you. Elysia Cabral. [facility] 03-02-2024 History of Presen t illness Narrative Chief Complaint Patient presents with: 6 Month Exam HPI Shruthi Horvath is a 83 year old female who presents here today for 6 month follow up. No bowel, Gi, or urinary issues. Taking Ditropan xl 5 mg daily which is working well for her. GERD: Sx controlled on Protonix 40 mg [address] with [address]. Garland. HTN: Taking Norvasc 10 mg daily and Monopril 20 mg daily. No chest pains, dizziness, or SOB. Checking BP at home occ, her BP machine is about 10 years old. Follows with Dr. Hooker at [facility]. She is watching her diet and she has been walking about 1.5 miles a day, if she has time she will walk longer. She mows her own yard and uses a bee producer in the winter. She will walk in the cold, but will not walk if it is raining or if there is ice. Arthritis: pain controlled with Mobic 15 mg daily prn, maybe 2 x a month. 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 I 03/02/2024: Home BP Cuff Validated. Home BP: 152/82 Office BP: 120/72 No further intervention at this time Past medical history, appointments, medications, allergies reviewed. Previous Medical History PAST MEDICAL HISTORY Diagnosis Date Diverticulosis of colon (without mention of hemorrhage) Essential hypertension, benign Family history of malignant neoplasm of gastrointestinal tract Generalized osteoarthrosis, unspecified site Stomach ulcer Previous Surgical History PAST SURGICAL HISTORY Procedure Laterality Date COLONOSCOPY FLX DX W/COLLJ SPEC WHEN PFRMD 01/15/06 Normal - Repeat in 5 years, X-3 COLONOSCOPY FLX DX W/COLLJ SPEC WHEN PFRMD 04/18/11 LIG/TRNSXJ FLP TUBE ABDL/VAG APPR UNI/BI 1979 Tubal ligation PAST SURGICAL HISTORY OF 03/[address] Garland PAST SURGICAL HISTORY OF 05/[address] Garland Family History FAMILY HISTORY Problem Relation Age of Onset Cancer Mother COLON CANCER - at 80yo Stroke Father Patient Allergies ALLERGIES Allergen Reactions Ibuprofen GI Upset Bleeding Ulcer Current Medications Current Outpatient Medications on File Prior to Visit Medication Sig pantoprazole DR (PROTONIX) 40 mg tablet Take one tablet po every day oxybutynin XL (DITROPAN XL) 5 mg 24 hr tablet Take 1 tablet by mouth daily at bedtime. amLODIPine (NORVASC) 10 mg tablet Take 1 tablet by mouth once daily. Fosinopril Sodium (MONOPRIL) 20 mg tablet Take 1 tablet by mouth once daily. meloxicam (MOBIC) 15 mg tablet Take 1 tablet by mouth as needed. Take with food. cmlhdfqh-qbx-gbha-FA-lutein (CENTRUM SILVER WOMEN) 8 mg iron-400 mcg-300 mcg tab Take 1 tablet by mouth once daily. ferrous sulfate 325 mg (65 mg iron) tablet Take 1 tablet by mouth daily with breakfast. (Patient not taking: Reported on 08/29/2023) calcium carbonate-vitamin d2 (OS-MIHAELA 500 W/D) 500 mg(1,250mg) -200 unit tab Take 3 tablets by mouth once daily. GLUCOSAMINE CHONDROITIN SMCONC 750 MG-600 MG-55 MG-5 MG TAB Take 2 tabs daily No current facility-administered medications on file prior to visit. Social History Social History Tobacco Use Smoking status: Never Smokeless tobacco: Never Vaping Use Vaping Use: Never used Substance Use Topics Alcohol use: Yes Comment: occassionally Drug use: No EXAM: BP 120/72 Pulse 88 Resp 16 Wt 52.7 kg (116 lb 1.6 oz) BMI 21.37 kg/m General Appearance: Well appearing, alert, in no acute distress, well-hydrated, well nourished.. Lungs: Lungs clear to auscultation. No wheezing, rhonchi, rales.. Heart: RRR without murmur, gallop, or rubs. No ectopy. Health Maintenance List Advance Directive Discussion due on 10/20/2023 Behavioral Health Screening Never done RSV Vaccine(1 - 1-dose 60+ series) due on 08/29/2024 Covid-19 Vaccine( season) due on 08/29/2024 Influenza Vaccine(Season Ended) due on 06/20/2024 Diabetes Screening due on 02/23/2027 DTaP,Tdap,Td Vaccine(3 - Td or Tdap) due on 04/18/2032 Bone Density Screening Completed Shingrix Vaccine Completed Pneumococcal Vaccine: 65+ Completed Colorectal Cancer Screening Discontinued Data reviewed Appointment on 02/24/2024 Component Date Value Protein, Total 02/24/2024 7.3 Albumin 02/24/2024 4.2 Calcium, Total 02/24/2024 9.7 Bilirubin, Total 02/24/2024 0.4 Alkaline Phosphatase 02/24/2024 81 AST 02/24/2024 25 ALT 02/24/2024 14 Glucose 02/24/2024 86 BUN 02/24/2024 15 Creatinine 02/24/2024 0.65 Sodium 02/24/2024 140 Potassium 02/24/2024 4.1 Chloride 02/24/2024 100 CO2 02/24/2024 30 Anion Gap 02/24/2024 10 Estimated Glomerular Darrell* 02/24/2024 88 Cholesterol, Total 02/24/2024 168 Triglyceride 02/24/2024 93 HDL Cholesterol 02/24/2024 47 Non HDL Cholesterol 02/24/2024 121 Fasting Time 02/24/2024 14 VLDL Cholesterol 02/24/2024 19 TC:HDL Ratio 02/24/2024 3.57 LDL Cholesterol 02/24/2024 102 (H) LDL:HDL Ratio 02/24/2024 2.17 WBC 02/24/2024 6.09 RBC 02/24/2024 4.57 Hemoglobin 02/24/2024 14.3 Hematocrit 02/24/2024 43.5 MCV 02/24/2024 95.2 MCH 02/24/2024 31.3 MCHC 02/24/2024 32.9 RDW-CV 02/24/2024 12.6 Platelet Count 02/24/2024 370 MPV 02/24/2024 10.5 Neutrophils % 02/24/2024 41.6 Abs Neut 02/24/2024 2.53 Lymphocytes % 02/24/2024 44.8 Abs Lymph 02/24/2024 2.73 Monocytes % 02/24/2024 9.2 Abs [place] 02/24/2024 0.56 Eosinophils % 02/24/2024 3.4 Abs Eosin 02/24/2024 0.21 Basophils % 02/24/2024 0.8 Abs Baso 02/24/2024 0.05 Immature Granulocytes % 02/24/2024 0.2 Abs Immature Gran 02/24/2024 <0.03 NRBC 02/24/2024 0.0 Absolute nRBC 02/24/2024 <0.01 Diff Type 02/24/2024 Auto ASSESSMENT/PLAN: 1. Essential hypertension, benign - ICD9: 401.1, ICD10: I10 (primary diagnosis) - Controlled - Continue current medications - Recommend home blood pressure monitoring, to bring results to next visit - Encouraged sodium restriction, DASH or Mediterranean diet - Recommend regular aerobic exercise 2. GERD without esophagitis - ICD9: 530.81, ICD10: K21.9 - stable Continue current medications. 3. Arthritis - ICD9: 716.90, ICD10: M19.90 Stable Continue current medications. 4. Urinary frequency - ICD9: 788.41, ICD10: R35.0 acute Continue current medications. Follow up in 6 months. No labs needed, checking labs once a year. I agree with the Chief Complaint, ROS, and Past Histories independently gathered by the clinical office support clerk and the remaining scribed note accurately describes my personal service to the patient. Medical Decision Making: Problems: Low: Stable chronic illness Data: Unique test result(s) reviewed: 3+ Risk: Moderate: Drug management Medical Decision Making Level: 4 - Moderate Savita Vega MD The documentation for this note was completed by Joann Anne MA acting as scribe for Savita Vega MD. March 02, 2024 11:17 AM. Joann Anne MA documented in this encounter [facility] 07-22-2023 Miscellaneous Notes The following approved medication requests have been transmitted electronically. Requested Prescriptions Pending Prescriptions Disp Refills oxybutynin XL (DITROPAN XL) 5 mg 24 hr tablet 90 tablet 3 Sig: Take 1 tablet by mouth daily at bedtime. Luigi Romeo APRN.CNP Patient is requesting a 90 prescription if possible. documented in this encounter [facility] 03-25-2023 Miscellaneous Notes The following approved medication requests have been transmitted electronically. Requested Prescriptions Pending Prescriptions Disp Refills Fosinopril Sodium (MONOPRIL) 20 mg tablet 90 tablet 3 Sig: Take 1 tablet by mouth once daily. Luigi Romeo APRN.CNP Patient has been identified by name and date of : Yes Last office visit in this department: 02/25/2023 RX INSTRUCTIONS: Patient aware RX will be sent to pharmacy. No need to notify patient. Patient phones requesting refills as follows: Requested Prescriptions Pending Prescriptions Disp Refills Fosinopril Sodium (MONOPRIL) 20 mg tablet 90 tablet 3 Sig: Take 1 tablet by mouth once daily. Please review and advise. Annelise Martell documented in this encounter [facility] 12-19-2022 History of Presen t illness Narrative This note was created using NoteWriter. Subjective Shruthi Horvath is a 82 year old female. HPI Patient presents with the chief complaint of cough and congestion over the past 6 days. She denies a fever. She has had a runny nose. No sinus pain or pressure. She states she was up all night last night coughing. States overall she does not feel systemically ill. No body aches or chills. No shortness of breath. No home COVID test done. She has not had COVID previously. Denies sick contacts. Review of Systems Constitutional: Negative. HENT: Positive for rhinorrhea. Negative for ear pain, sinus pressure, sneezing and sore throat. Respiratory: Positive for cough. Negative for chest tightness, shortness of breath and wheezing. Cardiovascular: Negative. Gastrointestinal: Negative. Genitourinary: Negative. Musculoskeletal: Negative. All other systems reviewed and are negative. PAST MEDICAL HISTORY Diagnosis Date Diverticulosis of colon (without mention of hemorrhage) Essential hypertension, benign Family history of malignant neoplasm of gastrointestinal tract Generalized osteoarthrosis, unspecified site Stomach ulcer Current Outpatient Medications Medication Sig Dispense Refill pantoprazole DR (PROTONIX) 40 mg tablet Take one tablet po every day 30 tablet 11 oxybutynin XL (DITROPAN XL) 5 mg 24 hr tablet Take 1 tablet by mouth daily at bedtime. 90 tablet 2 xvjlyecl-zld-uyaw-FA-lutein (CENTRUM SILVER WOMEN) 8 mg iron-400 mcg-300 mcg tab Take 1 tablet by mouth once daily. ferrous sulfate 325 mg (65 mg iron) tablet Take 1 tablet by mouth daily with breakfast. amLODIPine (NORVASC) 10 mg tablet Take 1 tablet by mouth once daily. 30 tablet 11 Fosinopril Sodium (MONOPRIL) 20 mg tablet Take 1 tablet by mouth once daily. 90 tablet 3 meloxicam (MOBIC) 15 mg tablet Take 1 tablet by mouth as needed. Take with food. 30 tablet 11 GLUCOSAMINE CHONDROITIN SMCONC 750 MG-600 MG-55 MG-5 MG TAB Take 2 tabs daily 0 predniSONE (DELTASONE) 20 mg tablet Take 2 tablets by mouth once daily for 5 days. 10 tablet 0 benzonatate (TESSALON PERLES) 100 mg capsule Take 2 capsules by mouth three times daily as needed. 30 capsule 0 calcium carbonate-vitamin d2 (OS-MIHAELA 500 W/D) 500 mg(1,250mg) -200 unit tab Take 3 tablets by mouth once daily. 0 No current facility-administered medications for this visit. PAST SURGICAL HISTORY Procedure Laterality Date COLONOSCOPY FLX DX W/COLLJ SPEC WHEN PFRMD 01/15/06 Normal - Repeat in 5 years, X-3 COLONOSCOPY FLX DX W/COLLJ SPEC WHEN PFRMD 04/18/11 LIG/TRNSXJ FLP TUBE ABDL/VAG APPR UNI/BI 1979 Tubal ligation PAST SURGICAL HISTORY OF 03/[address] Garland PAST SURGICAL HISTORY OF 05/[address] Garland FAMILY HISTORY Problem Relation Age of Onset Cancer Mother COLON CANCER - at 80yo Stroke Father Social History Tobacco Use Smoking status: Never Smokeless tobacco: Never Vaping Use Vaping Use: Never used Substance Use Topics Alcohol use: Yes Comment: occassionally Drug use: No Objective BP 118/64 Pulse 108 Temp 36.5 C (97.7 F) (Tympanic) Resp 18 Wt 52.8 kg (116 lb 6.4 oz) SpO2 97% BMI 21.43 kg/m Physical Exam Vitals reviewed. Constitutional: Appearance: Normal appearance. HENT: Head: Normocephalic and atraumatic. Right Ear: Tympanic membrane, ear canal and external ear normal. Left Ear: Tympanic membrane, ear canal and external ear normal. Nose: Rhinorrhea present. Mouth/Throat: Mouth: Mucous membranes are moist. Pharynx: Oropharynx is clear. No oropharyngeal exudate or posterior oropharyngeal erythema. Cardiovascular: Rate and Rhythm: Normal rate and regular rhythm. Heart sounds: Normal heart sounds. Pulmonary: Effort: Pulmonary effort is normal. Breath sounds: Normal breath sounds. Musculoskeletal: Cervical back: Neck supple. Skin: General: Skin is warm and dry. Neurological: General: No focal deficit present. Mental Status: She is alert. Assessment and Plan ASSESSMENT/PLAN: 1. Bronchitis - ICD9: 490, ICD10: J40 Chest x-ray clear here. I feel she does have a viral bronchitis. Given Tessalon and prednisone. COVID testing pending. Discussed red flags for ER care. Patient agreeable plan. - XR CHEST 2V FRONTAL/LAT - COVID WITH FLUA+B, ROUTINE Candy Dutton PA-C documented in this encounter [facility] 12-19-2022 History of Presen t illness Narrative Radiology Service Progress Note PATIENT NAME: Shruthi Horvath DATE OF SERVICE: December 19, 2022 TIME: 2:30 PM PATIENT IDENTITY VERIFICATION COMPLETED USING TWO (2) IDENTIFIERS: Name and Date of confirmed by patient verbally. FALL SCREENING: Has the patient had 2 falls in the last year or 1 fall with injury or currently using an Ambulatory Assistive Device (Walker, Cane, Wheelchair, Crutches, etc.)? No PATIENT GENDER DATA: Female. status: : No status: NO. PATIENT RELEVANT IMPLANT DATA REVIEWED: Yes RADIOLOGY DEPARTMENT: General X-ray: Exam(s) Completed: Chest X-Ray PERIPHERAL IV DATA: Not applicable SIGNED BY: RT Anthony(R) December 19, 2022 2:30 PM documented in this encounter [facility] 11-19-2022 Miscellaneous Notes Pt notified and voiced understanding. Joann Anne Ma Please notify patient that her ultrasound looked normal; no masses or abnormalities were seen.I cannot say what they saw on her screening test, but since this ultrasound was normal I do not think we need to worry about anything or do any further tests. Have a wonderful trip to [place]. Savita Vega MD documented in this encounter [facility] 11-18-2022 History of Presen t illness Narrative Radiology Service Progress Note PATIENT NAME: Shruthi Horvath DATE OF SERVICE: November 18, 2022 TIME: 9:36 AM PATIENT IDENTITY VERIFICATION COMPLETED USING TWO (2) IDENTIFIERS: Name and Date of confirmed by patient verbally. FALL SCREENING: Has the patient had 2 falls in the last year or 1 fall with injury or currently using an Ambulatory Assistive Device (Walker, Cane, Wheelchair, Crutches, etc.)? No PATIENT GENDER DATA: Female. status: : No status: NO. PATIENT RELEVANT IMPLANT DATA REVIEWED: Not Applicable RADIOLOGY DEPARTMENT: Ultrasound PERIPHERAL IV DATA: Not applicable SIGNED BY: Lana Escalera RDMS November 18, 2022 9:36 AM documented in this encounter [facility] 11-18-2022 History of Presen t illness Narrative Radiology Service Progress Note PATIENT NAME: Shruthi Horvath DATE OF SERVICE: November 18, 2022 TIME: 9:35 AM PATIENT IDENTITY VERIFICATION COMPLETED USING TWO (2) IDENTIFIERS: Name and Date of confirmed by patient verbally. FALL SCREENING: Has the patient had 2 falls in the last year or 1 fall with injury or currently using an Ambulatory Assistive Device (Walker, Cane, Wheelchair, Crutches, etc.)? No PATIENT GENDER DATA: Female. status: : No status: NO. PATIENT RELEVANT IMPLANT DATA REVIEWED: Not Applicable RADIOLOGY DEPARTMENT: Ultrasound PERIPHERAL IV DATA: Not applicable SIGNED BY: Lana Escalera RDMS November 18, 2022 9:35 AM documented in this encounter [facility] 11-12-2022 History of Presen t illness Narrative Pt notified and voiced understanding. Transferred to [facility] to set up US. Joann Anne Ma Patient sent in letter and results from Blood Flow Screening at [facility], which showed Incidental finding of non vascular structure in right side of abdomen adjacent to aorta, with recommendation to follow up with her doctor. I have ordered an US of aorta and RUQ to further evaluate this area and see if there is anything to be concerned about. At this point I do not see any reason why she would need to change her Nov travel plans. Savita Vega MD documented in this encounter [facility] 11-05-2022 Miscellaneous Notes OK to refill as ordered Savita Vega MD Patient has been identified by name and date of : Yes Requested Prescriptions Pending Prescriptions Disp Refills pantoprazole DR (PROTONIX) 40 mg tablet 30 tablet 5 Sig: Take one tablet po every day RX INSTRUCTIONS: Patient aware RX will be sent to pharmacy. No need to notify patient. [facility] in this encounter [facility] 10-31-2022 Miscellaneous Notes The following approved medication requests have been transmitted electronically. Requested Prescriptions Pending Prescriptions Disp Refills oxybutynin XL (DITROPAN XL) 5 mg 24 hr tablet 90 tablet 2 Sig: Take 1 tablet by mouth daily at bedtime. Luigi Romeo APRN.CHRISTINA Patient has been identified by name and date of : Yes Last office visit in this department: 08/26/2022 RX INSTRUCTIONS: Patient aware RX will be sent to pharmacy. No need to notify patient. Patient phones requesting refills as follows: Requested Prescriptions Pending Prescriptions Disp Refills oxybutynin XL (DITROPAN XL) 5 mg 24 hr tablet 90 tablet 2 Sig: Take 1 tablet by mouth daily at bedtime. Please review and advise. Annelise Martell documented in this encounter [facility] 08-26-2022 History of Presen t illness Narrative Chief Complaint Patient presents with: 6 Month Exam HPI Shruthi Horvath is a 82 year old female who presents here today for 6 month follow up. Denies feeling depressed or hopeless. No bowel, gi, or urinary issues. Ditropan xl 5 mg daily controlling urinary frequency. GERD: Sx controlled on Protonix 40 mg every day. She gets this from Dr. Garland. Arthritis: right arm and maria fernanda hands, doing well on Mobic 15 mg daily as needed. Typically only using 2-3 x a month. HTN: Checks BP at home occ. Denies any chest pains, dizziness, or SOB. Taking Fosinopril 20 mg daily and Norvasc 10 mg daily[address] with Dr. Hooker, Cardio at [facility] for heart murmur. She stays active with her yard work, snow blowing, stays very active. She knows to stop and rest when she feels tired. Fell in March, was walking in parking lot and tripped, hit her face, needed sutures to the right eyebrow. Did not have LOC. Tetanus was updated. Falls Risk Intake: Patient age 65 or over, unsteady, or was advised to use special equipment to aid ambulation (i.e., cane or walker)? No Has the patient had two falls in the past year, or one with injury? Yes Does the patient need to use their hands when pushing up from chair, or hold onto furniture when ambulating at home? No Is the patient worried about falling? Yes Please inform patient that answering Yes to one or more of the questions above can increase their risk of falling Patient is at greater risk for falls. Falls Instruction: Teaching document below - reviewed and given to patient [facility] - FALLS Prevention Safety Plan Past medical history, appointments, medications, allergies reviewed. Previous Medical History PAST MEDICAL HISTORY Diagnosis Date Diverticulosis of colon (without mention of hemorrhage) Essential hypertension, benign Family history of malignant neoplasm of gastrointestinal tract Generalized osteoarthrosis, unspecified site Stomach ulcer Previous Surgical History PAST SURGICAL HISTORY Procedure Laterality Date COLONOSCOPY FLX DX W/COLLJ SPEC WHEN PFRMD 01/15/06 Normal - Repeat in 5 years, X-3 COLONOSCOPY FLX DX W/COLLJ SPEC WHEN PFRMD 04/18/11 LIG/TRNSXJ FLP TUBE ABDL/VAG APPR UNI/BI 1980 Tubal ligation PAST SURGICAL HISTORY OF 03/[address] Garland PAST SURGICAL HISTORY OF 05/[address] Garland Family History FAMILY HISTORY Problem Relation Age of Onset Cancer Mother COLON CANCER - at 80yo Stroke Father Patient Allergies ALLERGIES Allergen Reactions Ibuprofen GI Upset Bleeding Ulcer Current Medications Current Outpatient Medications on File Prior to Visit Medication Sig amLODIPine (NORVASC) 10 mg tablet Take 1 tablet by mouth once daily. Fosinopril Sodium (MONOPRIL) 20 mg tablet Take 1 tablet by mouth once daily. oxybutynin XL (DITROPAN XL) 5 mg 24 hr tablet Take 1 tablet by mouth daily at bedtime. meloxicam (MOBIC) 15 mg tablet Take 1 tablet by mouth as needed. Take with food. pantoprazole DR (PROTONIX) 40 mg tablet Take one tablet po every other day calcium carbonate-vitamin d2 (OS-MIHAELA 500 W/D) 500 mg(1,250mg) -200 unit tab Take 3 tablets by mouth once daily. GLUCOSAMINE CHONDROITIN SMCONC 750 MG-600 MG-55 MG-5 MG TAB Take 2 tabs daily No current facility-administered medications on file prior to visit. Social History Social History Tobacco Use Smoking status: Never Smokeless tobacco: Never Vaping Use Vaping Use: Never used Substance Use Topics Alcohol use: Yes Comment: occassionally Drug use: No EXAM: BP 112/68 Pulse 70 Resp 16 Wt 53.3 kg (117 lb 9.6 oz) BMI 21.65 kg/m General Appearance: Well appearing, alert, in no acute distress, well-hydrated, well nourished.. Lungs: Lungs clear to auscultation. No wheezing, rhonchi, rales.. Heart: No gallop, or rubs. No ectopy. Murmur noted. Health Maintenance List DTAP,TDAP,TD(2 - Td or Tdap) due on 05/28/2020 DEPRESSION ASSESSMENT Never done COVID-19 VACCINE(4 - Booster for Moderna series) due on 11/18/2021 INFLUENZA(1) due on 06/20/2022 DIABETES SCREEN due on 02/18/2025 BONE DENSITY Completed ADVANCE DIRECTIVE DISCUSSION Completed SHINGRIX VACCINE Completed PNEUMOCOCCAL: 65+ Completed Data reviewed None ASSESSMENT/PLAN: 1. Essential hypertension, benign - ICD9: 401.1, ICD10: I10 (primary diagnosis) - good control - Continue current medication(s) - Recommended regular aerobic exercise. - Recommend home blood pressure monitoring, to bring results in on next visit - Goal of BP <130/80 2. Gastric ulcer - ICD9: 531.90, ICD10: K25.9 Stable Continue with Zakiya Donald - PANTOPRAZOLE 40 MG TABLET,DELAYED RELEASE 3. GERD without esophagitis - ICD9: 530.81, ICD10: K21.9 - Continue current medications. Continue with Dr. Garland [facility] 4. Arthritis - ICD9: 716.90, ICD10: M19.90 Controlled. Continue current medications. 5. Urinary frequency - ICD9: 788.41, ICD10: R35.0 chronic Continue with Ditropan at night Follow up in 6 months with fasting labs prior. I agree with the Chief Complaint, ROS, and Past Histories independently gathered by the clinical office support clerk and the remaining scribed note accurately describes my personal service to the patient. Medical Decision Making: Problems: Moderate: 2+ stable chronic illnesses Data: Unique test(s) ordered: 2 Risk: Moderate: Drug management Medical Decision Making Level: 4 - Moderate Savita Vega MD The documentation for this note was completed by Joann Anne Ma acting as scribe for Savita Vega MD. August 26, 2022 11:12 AM. Joann Anne Ma documented in this encounter [facility] 04-26-2022 History of Presen t illness Narrative Images from the original note were not included. Subjective HPI Nontoxic-appearing female presents urgent care chief complaint suture removal. Patient states had 5 sutures placed by ED 8 days ago. Presents today for suture removal. States wound has healed well. No pain. No drainage. No fevers. No headaches dizziness. States feeling well overall. Past medical history prescription medication use allergies reviewed. .Patient presents with: Suture Removal: 5 sutures in R eyebrow x8 days PAST MEDICAL HISTORY Diagnosis Date Diverticulosis of colon (without mention of hemorrhage) Essential hypertension, benign Family history of malignant neoplasm of gastrointestinal tract Generalized osteoarthrosis, unspecified site Stomach ulcer PAST SURGICAL HISTORY Procedure Laterality Date COLONOSCOPY FLX DX W/COLLJ SPEC WHEN PFRMD 01/15/06 Normal - Repeat in 5 years, X-3 COLONOSCOPY FLX DX W/COLLJ SPEC WHEN PFRMD 6/30/11 LIG/TRNSXJ FLP TUBE ABDL/VAG APPR UNI/BI 1979 Tubal ligation PAST SURGICAL HISTORY OF 03/[address] Garland PAST SURGICAL HISTORY OF 05/[address] Garland ALLERGIES Ibuprofen MEDICATIONS Fosinopril Sodium (MONOPRIL) 20 mg tablet Take 1 tablet by mouth once daily. betamethasone dipropionate (DIPROSONE) 0.05 % cream Apply to affected area twice daily oxybutynin XL (DITROPAN XL) 5 mg 24 hr tablet Take 1 tablet by mouth daily at bedtime. amLODIPine (NORVASC) 10 mg tablet Take 1 tablet by mouth once daily. meloxicam (MOBIC) 15 mg tablet Take 1 tablet by mouth as needed. Take with food. pantoprazole DR (PROTONIX) 40 mg tablet Take one tablet po every other day calcium carbonate-vitamin d2 (OS-MIHAELA 500 W/D) 500 mg(1,250mg) -200 unit tab Take 3 tablets by mouth once daily. GLUCOSAMINE CHONDROITIN SMCONC 750 MG-600 MG-55 MG-5 MG TAB Take 2 tabs daily FAMILY HISTORY Problem Relation Age of Onset Cancer Mother COLON CANCER - at 80yo Stroke Father Social History Tobacco Use Smoking status: Never Smoker Smokeless tobacco: Never Used Vaping Use Vaping Use: Never used Substance Use Topics Alcohol use: Yes Comment: occassionally Drug use: No BP 120/70 Pulse 90 Temp (!) 35.9 C (96.7 F) Resp 20 Wt 53.5 kg (118 lb) SpO2 97% BMI 21.72 kg/m Review of Systems Constitutional: Negative for chills, fever and malaise/fatigue. HENT: Negative for congestion, ear discharge, ear pain, sinus pain and sore throat. Eyes: Negative for blurred vision, pain, discharge and redness. Respiratory: Negative for cough, hemoptysis, sputum production, shortness of breath, wheezing and stridor. Cardiovascular: Negative for chest pain. Gastrointestinal: Negative for abdominal pain, diarrhea, nausea and vomiting. Musculoskeletal: Negative for myalgias. Skin: Negative for itching and rash. Neurological: Negative for dizziness and headaches. Objective Physical Exam Constitutional: General: She is not in acute distress. Appearance: She is not diaphoretic. HENT: Head: Normocephalic. Comments: 5 sutures easily removed. Wound well approximated. No drainage. No redness. Eyes: Conjunctiva/sclera: Conjunctivae normal. Pupils: Pupils are equal, round, and reactive to light. Cardiovascular: Rate and Rhythm: Normal rate and regular rhythm. Heart sounds: Normal heart sounds. Pulmonary: Effort: Pulmonary effort is normal. No tachypnea, accessory muscle usage or respiratory distress. Breath sounds: Normal breath sounds. No stridor. Abdominal: Palpations: Abdomen is soft. Tenderness: There is no abdominal tenderness. Musculoskeletal: Cervical back: Normal range of motion and neck supple. No rigidity or tenderness. Lymphadenopathy: Cervical: No cervical adenopathy. Skin: General: Skin is warm and dry. Neurological: Mental Status: She is alert and oriented to person, place, and time. ASSESSMENT/PLAN: 1. Visit for suture removal - ICD9: V58.32, ICD10: Z48.02 Sutures easily removed. No evidence of infection. Follow-up with PCP as needed. Patient verbalized understanding agrees to plan of care. Kermit Marino APRN.CHRISTINA documented in this encounter [facility] 02-25-2022 History of Presen t illness Narrative Chief Complaint Patient presents with: 6 Month Exam HPI Shruthi Horvath is a 81 year old female who presents here today for 6 month follow up. 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 They will sing on Friday for the last time until Fall. Denies feelings depressed or hopeless. She does have an advanced directive and healthcare POA and a will. No bowel or gi issues. GERD sx controlled with Protonix 40 mg every other day and urinary sx doing well with Ditropan xl 5 mg daily. HTN: No chest pains, dizziness, or SOB. Taking Fosinopril 20 mg daily and Norvasc 10 mg daily. Is checking BP at home with readings WNL. Follows with Dr. Hooker, [facility] at [facility] for slight heart murmur. Arthritis: Right upper arm and hands. Using Mobic 15 mg as needed, using it maybe 2-3 x per month. She has cut back on the red meat she eats maybe a few times per month and watches her salt intake. She has been trying to stay as active and physical as she can be. Past medical history, appointments, medications, allergies reviewed. Previous Medical History PAST MEDICAL HISTORY Diagnosis Date Diverticulosis of colon (without mention of hemorrhage) Essential hypertension, benign Family history of malignant neoplasm of gastrointestinal tract Generalized osteoarthrosis, unspecified site Stomach ulcer Previous Surgical History PAST SURGICAL HISTORY Procedure Laterality Date COLONOSCOPY FLX DX W/COLLJ SPEC WHEN PFRMD 01/15/06 Normal - Repeat in 5 years, X-3 COLONOSCOPY FLX DX W/COLLJ SPEC WHEN PFRMD 04/18/11 LIG/TRNSXJ FLP TUBE ABDL/VAG APPR UNI/BI 1979 Tubal ligation PAST SURGICAL HISTORY OF 03/[address] Garland PAST SURGICAL HISTORY OF 05/[address] Garland Family History FAMILY HISTORY Problem Relation Age of Onset Cancer Mother COLON CANCER - at 80yo Stroke Father Patient Allergies ALLERGIES Allergen Reactions Ibuprofen GI Upset Bleeding Ulcer Current Medications Current Outpatient Medications on File Prior to Visit Medication Sig oxybutynin XL (DITROPAN XL) 5 mg 24 hr tablet Take 1 tablet by mouth daily at bedtime. amLODIPine (NORVASC) 10 mg tablet Take 1 tablet by mouth once daily. Fosinopril Sodium (MONOPRIL) 20 mg tablet Take 1 tablet by mouth once daily. meloxicam (MOBIC) 15 mg tablet Take 1 tablet by mouth as needed. Take with food. pantoprazole DR (PROTONIX) 40 mg tablet Take one tablet po every other day calcium carbonate-vitamin d2 (OS-MIHAELA 500 W/D) 500 mg(1,250mg) -200 unit tab Take 3 tablets by mouth once daily. GLUCOSAMINE CHONDROITIN SMCONC 750 MG-600 MG-55 MG-5 MG TAB Take 2 tabs daily No current facility-administered medications on file prior to visit. Social History Social History Tobacco Use Smoking status: Never Smoker Smokeless tobacco: Never Used Vaping Use Vaping Use: Never used Substance Use Topics Alcohol use: Yes Comment: occassionally Drug use: No EXAM: BP 138/68 Pulse 68 Resp 16 Wt 53.3 kg (117 lb 9.6 oz) BMI 21.65 kg/m General Appearance: Well appearing, alert, in no acute distress, well-hydrated, well nourished.. Lungs: Lungs clear to auscultation. No wheezing, rhonchi, rales.. Heart: RRR without murmur, gallop, or rubs. No ectopy. Health Maintenance List DEPRESSION SCREENING due on 12/25/2019 DTAP,TDAP,TD(2 - Td or Tdap) due on 05/28/2020 COVID-19 VACCINE(3 - Booster for Moderna series) due on 07/17/2021 ADVANCE DIRECTIVE DISCUSSION Never done ANNUAL PCP TEAM CHRONIC DISEASE VISIT due on 08/24/2022 BP CONTROLLED (<130/80) due on 08/24/2022 DIABETES SCREEN due on 02/23/2024 BONE DENSITY Completed INFLUENZA Completed PNEUMOVAX AGE 65 AND OVER WITH 5YR LOOKBACK Completed SHINGRIX VACCINE Completed MENINGOCOCCAL CONJUGATE Aged Out Data reviewed Appointment on 02/18/2022 Component Date Value Cholesterol, Total 02/18/2022 158 Triglyceride 02/18/2022 66 HDL Cholesterol 02/18/2022 49 Non HDL Cholesterol 02/18/2022 109 Fasting Time 02/18/2022 12 VLDL Cholesterol 02/18/2022 13 TC:HDL Ratio 02/18/2022 3.22 LDL Cholesterol 02/18/2022 96 LDL:HDL Ratio 02/18/2022 1.96 Protein, Total 02/18/2022 7.1 Albumin 02/18/2022 4.2 Calcium, Total 02/18/2022 9.5 Bilirubin, Total 02/18/2022 0.3 Alkaline Phosphatase 02/18/2022 82 AST 02/18/2022 24 ALT 02/18/2022 12 Glucose 02/18/2022 75 BUN 02/18/2022 19 Creatinine 02/18/2022 0.59 Sodium 02/18/2022 142 Potassium 02/18/2022 4.1 Chloride 02/18/2022 103 CO2 02/18/2022 28 Anion Gap 02/18/2022 11 Estimated Glomerular Darrell* 02/18/2022 91 WBC 02/18/2022 6.23 RBC 02/18/2022 4.30 Hemoglobin 02/18/2022 13.4 Hematocrit 02/18/2022 41.0 MCV 02/18/2022 95.3 MCH 02/18/2022 31.2 MCHC 02/18/2022 32.7 RDW-CV 02/18/2022 12.7 Platelet Count 02/18/2022 341 MPV 02/18/2022 10.8 Neut% 02/18/2022 49.9 Abs Neut 02/18/2022 3.11 Lymph% 02/18/2022 36.1 Abs Lymph 02/18/2022 2.25 [place]% 02/18/2022 10.0 Abs [place] 02/18/2022 0.62 Eosin% 02/18/2022 3.0 Abs Eosin 02/18/2022 0.19 Baso% 02/18/2022 0.8 Abs Baso 02/18/2022 0.05 Immature Gran % 02/18/2022 0.2 Abs Immature Gran 02/18/2022 <0.03 NRBC 02/18/2022 0.0 Absolute nRBC 02/18/2022 <0.01 Diff Type 02/18/2022 Auto ASSESSMENT/PLAN: 1. Essential hypertension, benign - ICD9: 401.1, ICD10: I10 (primary diagnosis) - good control - Continue current medication(s) - Recommended regular aerobic exercise. - Recommend home blood pressure monitoring, to bring results in on next visit - Goal of BP <140/90 2. Contact dermatitis due to poison jose - ICD9: 692.6, ICD10: L23.7 - discussed skin care of rash - follow up if symptoms persist or worsen. - BETAMETHASONE DIPROPIONATE 0.05 % TOPICAL CREAM 3. GERD without esophagitis - ICD9: 530.81, ICD10: K21.9 -Controlled - Continue current medications. 4. Arthritis - ICD9: 716.90, ICD10: M19.90 - Stable - Continue current medications. 5. Urinary frequency - ICD9: 788.41, ICD10: R35.0 - Controlled - Continue current medications. Follow up in 6 months. Will do blood work once a year. I agree with the Chief Complaint, ROS, and Past Histories independently gathered by the clinical office support clerk and the remaining scribed note accurately describes my personal service to the patient. Medical Decision Making: Problems: Moderate: 2+ stable chronic illnesses Data: Unique test result(s) reviewed: 3+ Risk: Moderate: Drug management Medical Decision Making Level: 4 - Moderate Savita Vega MD The documentation for this note was completed by Joann Anne Ma acting as scribe for Savita Vega MD. February 25, 2022 11:07 AM. Joann Anne Ma documented in this encounter [facility] 02-04-2022 Miscellaneous Notes The following approved medication requests have been transmitted electronically. Pending Prescriptions Disp Refills OXYBUTYNIN CHLORIDE ER 5 MG TABLET,EXTENDED RELEASE 24 HR 90 tablet 2 Sig: Take 1 tablet by mouth daily at bedtime. CAROLINE: No Luigi Romeo APRN.CNP documented in this encounter [facility] 03-26-2006 History of Past i llness Narrative Problem Noted Date Resolved Date Hyperlipidemia 03/26/2006 12/17/2016 Diverticulosis of colon (without mention of hemo rrhage) 11/27/2010 documented as of this encounter (statuses as of 02/04/2022) [facility] Narrative* Problem Noted Date Resolved Date Hyperlipidemia 03/26/2006 12/17/2016 Diverticulosis of colon (without mention of hemo rrhage) 11/27/2010 documented as of this encounter (statuses as of 02/25/2022) [facility] Narrative* Problem Noted Date Resolved Date Hyperlipidemia 03/26/2006 12/17/2016 Diverticulosis of colon (without mention of hemo rrhage) 11/27/2010 documented as of this encounter (statuses as of 04/26/2022) [facility] N[facility]ative* Problem Noted Date Resolved Date Hyperlipidemia 03/26/2006 12/17/2016 Diverticulosis of colon (without mention of hemo rrhage) 11/27/2010 documented as of this encounter (statuses as of 08/26/2022) [facility] N[facility]* Problem Noted Date Resolved Date Hyperlipidemia 03/26/2006 12/17/2016 Diverticulosis of colon (without mention of hemo rrhage) 11/27/2010 documented as of this encounter (statuses as of 10/31/2022) [facility] N[facility]* Problem Noted Date Resolved Date Hyperlipidemia 03/26/2006 12/17/2016 Diverticulosis of colon (without mention of hemo rrhage) 11/27/2010 documented as of this encounter (statuses as of 11/05/2022) [facility]* Problem Noted Date Resolved Date Hyperlipidemia 03/26/2006 12/17/2016 Diverticulosis of colon (without mention of hemo rrhage) 11/27/2010 documented as of this encounter (statuses as of 11/13/2022) [facility]* Problem Noted Date Resolved Date Hyperlipidemia 03/26/2006 12/17/2016 Diverticulosis of colon (without mention of hemo rrhage) 11/27/2010 documented as of this encounter (statuses as of 11/19/2022) [facility]* Problem Noted Date Resolved Date Hyperlipidemia 03/26/2006 12/17/2016 Diverticulosis of colon (without mention of hemo rrhage) 11/27/2010 documented as of this encounter (statuses as of 12/19/2022) [facility]* Problem Noted Date Resolved Date Hyperlipidemia 03/26/2006 12/17/2016 Diverticulosis of colon (without mention of hemo rrhage) 11/27/2010 documented as of this encounter (statuses as of 03/25/2023) [facility]* Problem Noted Date Diagnosed Date Resolved Date Hyperlipidemia 03/26/2006 12/17/2016 Diverticulosis of colon (wit hout mention of hemorrhage) 11/27/2010 documented as of this encounter (statuses as of 07/23/2023) [facility]* Problem Noted Date Diagnosed Date Resolved Date Hyperlipidemia 03/26/2006 12/17/2016 Diverticulosis of colon (wit hout mention of hemorrhage) 11/27/2010 documented as of this encounter (statuses as of 08/24/2023) [facility] Essential hypertension, benign- Primary Contact dermatitis due to poison jose Contact dermatitis and other eczema due to plants (except food) GERD without esophagitis Esophageal reflux Arthritis Arthropathy, unspecified, site unspecified Urinary frequency [facility] [place] noteNo assessment information availableWUK Healthcare Work Phone: evaluation note* Diagnosis Visit for suture removal- Primary Encounter for removal of sutures documented in this encounter [facility] note* Diagnosis Essential hypertension, benign- Primary Gastric ulcer, unspecified chronicity, unspecified whether gastric ulcer hemorrhage or perforation present GERD without esophagitis Esophageal reflux Arthritis Arthropathy, unspecified, site unspecified Urinary frequency documented in this encounter [facility] note* Diagnosis Onset Date Resolution Status Cardiac murmur acute Left carotid bruit acute Essential (primary) hypertension chronic Mixed hyperlipidemia chronic [facility] Work Phone: evaluation note* Diagnosis Gastric ulcer Gastric ulcer, unspecified as acute or chronic, without mention of hemorrhage, perforation, or obstruction [facility] [place] [facility]* Diagnosis Abdominal mass of other site- Primary Abdominal or pelvic swelling, mass, or lump, other specified site [facility] [place] [facility]* Diagnosis Bronchitis- Primary Bronchitis, not specified as acute or chronic [facility] [place] [facility]* Diagnosis BENIGN HYPERTENSION Essential hypertension, benign [facility] [place] [facility]* Diagnosis Abdominal mass of other site Abdominal or pelvic swelling, mass, or lump, other specified site [facility] [place] [facility]* Diagnosis Essential hypertension, benign- Primary GERD without esophagitis Esophageal reflux Arthritis Arthropathy, unspecified, site unspecified Urinary frequency [facility] [place] [facility]* Diagnosis BENIGN HYPERTENSION Essential hypertension, benign [facility] [place] [facility]* Diagnosis BENIGN HYPERTENSION Essential hypertension, benign [facility] [place] [facility]* Diagnosis URI with cough and congestion- Primary [facility] [place] [facility]* Diagnosis Bronchitis Bronchitis, not specified as acute or chronic [facility] [place] [facility]* Diagnosis Arthritis of right upper arm [facility] [place] [facility]* Diagnosis BENIGN HYPERTENSION- Primary Essential hypertension, benign Hyperlipidemia, unspecified hyperlipidemia type GERD without esophagitis Esophageal reflux Arthritis Arthropathy, unspecified, site unspecified Urinary frequency Iron deficiency anemia, unspecified iron deficiency anemia type Contact dermatitis due to poison jose Contact dermatitis and other eczema due to plants (except food) [facility] [place] [facility]* Diagnosis Gastric ulcer Gastric ulcer, unspecified as acute or chronic, without mention of hemorrhage, perforation, or obstruction [facility] [place] [facility]* Diagnosis Arthritis of right upper arm documented in this encounter [facility] for referral (narrative)* Diagnostic Procedure Only (Routine) - Pending Review Specialty Diagnoses / Procedures Referred By Contac t Referred To Contact US IMAGING Diagnoses Abdominal mass of other site Procedures US ABD AORTA US RETROPERITONEAL REAL TIME W/IMAGE LIMITED Savita Vega MD [address] [place] [id number] [facility] Referral ID Status Reason Start Date Expiration Date Visits Requested Visits Authorized [id number] Pending Review Auto-Generat ed Referral 11/12/2022 12/12/2023 1 1 * Diagnostic Procedure Only (Routine) - Authorized Specialty Diagnoses / Procedures Referred By Contac t Referred To Contact US IMAGING Diagnoses Abdominal mass of other site Procedures US ABD RT UPPER QUADRANT US ABDOMINAL REAL TIME W/IMAGE LIMITED Savita Vega MD [address] [place] [id number] [facility] Referral ID Status Reason Start Date Expiration Date Visits Requested Visits Authorized [id number] Authorized Auto-Generat ed Referral 11/12/2022 12/12/2023 1 1 [facility] for referral (narrative)* Diagnostic Procedure Only (Routine) - Closed Specialty Diagnoses / Procedures Referred By Contac t Referred To Contact US IMAGING Diagnoses Abdominal mass of other site Procedures US ABD AORTA US RETROPERITONEAL REAL TIME W/IMAGE LIMITED Savita Vega MD [address] [place] [address] [place] [address] Referral ID Status Reason Start Date Expiration Date V isits Requested Visits Authorized [id number] Closed Auto-Generate d Referral 11/12/2022 12/12/2023 1 1 [facility] Diagnostic Procedure Only (Routine) - Closed Specialty Diagnoses / Procedures Referred By Lizeth t Referred To Contact US IMAGING Diagnoses Abdominal mass of other site Procedures US ABD RT UPPER QUADRANT US ABDOMINAL REAL TIME W/IMAGE LIMITED Savita Vega MD [address] [facility] [place] [address] [place] [address] Referral ID Status Reason Start Date Expiration Date V isits Requested Visits Authorized [id number] Closed Auto-Generate d Referral 11/12/2022 12/12/2023 1 1 [facility] Advance Directives No Advanced Directives Records FoundDocuments on File Type Date Recorded 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 Advance Directive(s) Advance Directive Response Recorded Date/ Time Living Will Yes April 18, 2022 7:16pm Power of Esl Teacher No April 18 7:16pm Advance Directive Response Recorded Date/ Time Living Will Yes April 18, 2022 6:16pm Power of Esl Teacher No April 18 6:16pm Chief Complaint and Reason for Visit Chief Complaint FALL Chief Complaint 1 Y FU MURMUR Reason for Visit Cardiac murmur Left carotid bruit Essential (primary) hypertension Mixed hyperlipidemia Family History No Family History Records Found Relationship Condition Age at Onset Recorded Date/T rell father Cerebrovascular accident (CVA) Unknown mother Malignant neoplasm of colon Unknown Health Concerns Infection Onset Date Last Indicated Resolved Time COVID-19 Rule-Out 12/19/2022 12/19/2022 Summary Purpose Additional Source Comments Source Comments (unrecognize d section and content) In the event this informatio n is protected by the Federal Confidentiality of Alcohol and Drug Abuse Patient Records regulations: The Federal rules restrict any use of the information to criminally investigate or prosecute any alcohol or drug abuse patient.[facility] SystemIn the event this information is protected by the Federal Confidentiality of Alcohol and Drug Abuse Patient Records regulations: The Federal rules restrict any use of the information to criminally investigate or prosecute any alcohol or drug abuse patient.[facility] SystemIn the event this information is protected by the Federal Confidentiality of Alcohol and Drug Abuse Patient Records regulations: The Federal rules restrict any use of the information to criminally investigate or prosecute any alcohol or drug abuse patient.[facility] SystemIn the event this information is protected by the Federal Confidentiality of Alcohol and Drug Abuse Patient Records regulations: The Federal rules restrict any use of the information to criminally investigate or prosecute any alcohol or drug abuse patient.[facility] SystemIn the event this information is protected by the Federal Confidentiality of Alcohol and Drug Abuse Patient Records regulations: The Federal rules restrict any use of the information to criminally investigate or prosecute any alcohol or drug abuse patient.[facility] SystemIn the event this information is protected by the Federal Confidentiality of Alcohol and Drug Abuse Patient Records regulations: The Federal rules restrict any use of the information to criminally investigate or prosecute any alcohol or drug abuse patient.[facility] SystemIn the event this information is protected by the Federal Confidentiality of Alcohol and Drug Abuse Patient Records regulations: The Federal rules restrict any use of the information to criminally investigate or prosecute any alcohol or drug abuse patient.[facility] SystemIn the event this information is protected by the Federal Confidentiality of Alcohol and Drug Abuse Patient Records regulations: The Federal rules restrict any use of the information to criminally investigate or prosecute any alcohol or drug abuse patient.[facility] SystemIn the event this information is protected by the Federal Confidentiality of Alcohol and Drug Abuse Patient Records regulations: The Federal rules restrict any use of the information to criminally investigate or prosecute any alcohol or drug abuse patient.[facility] SystemIn the event this information is protected by the Federal Confidentiality of Alcohol and Drug Abuse Patient Records regulations: The Federal rules restrict any use of the information to criminally investigate or prosecute any alcohol or drug abuse patient.[facility] SystemIn the event this information is protected by the Federal Confidentiality of Alcohol and Drug Abuse Patient Records regulations: The Federal rules restrict any use of the information to criminally investigate or prosecute any alcohol or drug abuse patient.[facility] SystemIn the event this information is protected by the Federal Confidentiality of Alcohol and Drug Abuse Patient Records regulations: The Federal rules restrict any use of the information to criminally investigate or prosecute any alcohol or drug abuse patient.[facility] SystemIn the event this information is protected by the Federal Confidentiality of Alcohol and Drug Abuse Patient Records regulations: The Federal rules restrict any use of the information to criminally investigate or prosecute any alcohol or drug abuse patient.[facility] SystemIn the event this information is protected by the Federal Confidentiality of Alcohol and Drug Abuse Patient Records regulations: The Federal rules restrict any use of the information to criminally investigate or prosecute any alcohol or drug abuse patient.[facility] SystemIn the event this information is protected by the Federal Confidentiality of Alcohol and Drug Abuse Patient Records regulations: The Federal rules restrict any use of the information to criminally investigate or prosecute any alcohol or drug abuse patient.[facility] SystemIn the event this information is protected by the Federal Confidentiality of Alcohol and Drug Abuse Patient Records regulations: The Federal rules restrict any use of the information to criminally investigate or prosecute any alcohol or drug abuse patient.[facility] SystemIn the event this information is protected by the Federal Confidentiality of Alcohol and Drug Abuse Patient Records regulations: The Federal rules restrict any use of the information to criminally investigate or prosecute any alcohol or drug abuse patient.[facility] SystemIn the event this information is protected by the Federal Confidentiality of Alcohol and Drug Abuse Patient Records regulations: The Federal rules restrict any use of the information to criminally investigate or prosecute any alcohol or drug abuse patient.[facility] SystemIn the event this information is protected by the Federal Confidentiality of Alcohol and Drug Abuse Patient Records regulations: The Federal rules restrict any use of the information to criminally investigate or prosecute any alcohol or drug abuse patient.[facility] SystemIn the event this information is protected by the Federal Confidentiality of Alcohol and Drug Abuse Patient Records regulations: The Federal rules restrict any use of the information to criminally investigate or prosecute any alcohol or drug abuse patient.[facility] SystemIn the event this information is protected by the Federal Confidentiality of Alcohol and Drug Abuse Patient Records regulations: The Federal rules restrict any use of the information to criminally investigate or prosecute any alcohol or drug abuse patient.[facility] SystemIn the event this information is protected by the Federal Confidentiality of Alcohol and Drug Abuse Patient Records regulations: The Federal rules restrict any use of the information to criminally investigate or prosecute any alcohol or drug abuse patient.[facility] SystemIn the event this information is protected by the Federal Confidentiality of Alcohol and Drug Abuse Patient Records regulations: The Federal rules restrict any use of the information to criminally investigate or prosecute any alcohol or drug abuse patient.[facility] SystemIn the event this information is protected by the Federal Confidentiality of Alcohol and Drug Abuse Patient Records regulations: The Federal rules restrict any use of the information to criminally investigate or prosecute any alcohol or drug abuse patient.[facility] Reason for Visit (unrecogniz ed section and content) Reason Comments Prescription Refills Reason Comments 6 Month Exam Reason Comments Suture Removal 5 sutures in R eyebr ow x8 days Reason Comments Refill Request Reason Comments Results Reason Comments Results Reason Comments Cough Pt reported chest co ngestion x6 days. Reason Onset Date Comments Refill Request 07/22/2023 Reason Comments Radiology US Specialty Diagnoses / Procedures Referred By Contac t Referred To Contact US IMAGING Diagnoses Abdominal mass of other site Procedures US ABD AORTA US RETROPERITONEAL REAL TIME W/IMAGE LIMITED Savita Vega MD [address] [place] [address] [place] [address] Referral ID Status Reason Start Date Expiration Date V isits Requested Visits Authorized [id number] Closed Auto-Generate d Referral 11/12/2022 12/12/2023 1 1 Specialty Diagnoses / Procedures Referred By Contac t Referred To Contact US IMAGING Diagnoses Abdominal mass of other site Procedures US ABD RT UPPER QUADRANT US ABDOMINAL REAL TIME W/IMAGE LIMITED Savita Vega MD [address] [place] [address] [place] [address] Referral ID Status Reason Start Date Expiration Date V isits Requested Visits Authorized [id number] Closed Auto-Generate d Referral 11/12/2022 12/12/2023 1 1 Reason Onset Date Comments Refill Request 03/25/2024 Reason Onset Date Comments Refill Request 06/28/2024 Reason Comments Cough X 3 days Reason Onset Date Comments Refill Request 08/09/2024 Reason Onset Date Comments Refill Request 03/29/2025 Reason Onset Date Comments Refill Request 06/21/2025 Care Teams (unrecognized sec tion and content) Bilingual Office Assistant Relationship Specialty Start Date End Date Savita Vega MD [address] [place] [address] PCP - General 09/19/09 Bilingual Office Assistant Relationship Specialty Start Date End Date Savita Vega MD [address] [place] [address] PCP - General 09/19/09 Bilingual Office Assistant Relationship Specialty Start Date End Date Savita Vega MD [address] [facility] [place] [address] PCP - General 09/19/09 Bilingual Office Assistant Relationship Specialty Start Date End Date Savita Vega MD [address] [facility] [place] [address] PCP - General 09/19/09 Bilingual Office Assistant Relationship Specialty Start Date End Date Savita Vega MD [address] [place] [address], [place] [address] PCP - General 09/19/09 Bilingual Office Assistant Relationship Specialty Start Date End Date Savita Vega MD [address] [place] [address], [place] [address] PCP - General 09/19/09 Bilingual Office Assistant Relationship Specialty Start Date End Date Savita Vega MD [facility] [place] [address] PCP - General 09/19/09 Bilingual Office Assistant Relationship Specialty Start Date End Date Savita Vega MD [address] [place] [address], [place] [address] PCP - General 09/19/09 Bilingual Office Assistant Relationship Specialty Start Date End Date Savita Vega MD [address] [facility] [place] [address] PCP - General 09/19/09 Bilingual Office Assistant Relationship Specialty Start Date End Date Savita Vega MD [facility] [place] [address] PCP - General 09/19/09 Bilingual Office Assistant Relationship Specialty Start Date End Date Savita Vega MD [address] [facility] [place] [address] PCP - General 09/19/09 Bilingual Office Assistant Relationship Specialty Start Date End Date Savita Vega MD [address] [place] [address] PCP - General 09/19/09 Bilingual Office Assistant Relationship Specialty Start Date End Date Savita Vega MD [address] [place] [address] PCP - General 09/19/09 Bilingual Office Assistant Relationship Specialty Start Date End Date Savita Vega MD [address] [place] [address] PCP - General 09/19/09 Bilingual Office Assistant Relationship Specialty Start Date End Date Savita Vega MD [address] [place] [address] PCP - General 09/19/09 Bilingual Office Assistant Relationship Specialty Start Date End Date Savita Vega MD [address] [place] [address] PCP - General 09/19/09 Bilingual Office Assistant Relationship Specialty Start Date End Date Saivta Vega MD [address] [place] [address] PCP - General 09/19/09 Bilingual Office Assistant Relationship Specialty Start Date End Date Savita Vega MD [address] [place] [address] PCP - General 09/19/09 Bilingual Office Assistant Relationship Specialty Start Date End Date Savita Vega MD [address] [place] [address] PCP - General 09/19/09 Cheyenne Hernandez APRN.OFFICE SERVICES CLERK [address] [place] [address] [facility] 09/26/24 Luigi Romeo APRN.OFFICE SERVICES CLERK [address] [place] [address] [facility] 10/05/24 Bilingual Office Assistant Relationship Specialty Start Date End Date Savita Vega MD [address] [place] [address] PCP - General 09/19/09 Luigi Romeo APRN.OFFICE SERVICES CLERK [address] [place] [address] [facility] 10/05/24 Bilingual Office Assistant Relationship Specialty Start Date End Date Savita Vega MD [address] [place] [address] PCP - General 09/19/09 Cheyenne Hernandez APRN.OFFICE SERVICES CLERK [address] [place] [address] [facility] 09/26/24 03/02/25 Luigi Romeo APRN.OFFICE SERVICES CLERK [address] [place] [address] [facility] 10/05/24 Bilingual Office Assistant Relationship Specialty Start Date End Date Savita Vega MD [address] [place] [address] PCP - General 09/19/09 Luigi Romeo APRN.OFFICE SERVICES CLERK [address] [place] [address] [facility] 10/05/24 Goals (unrecognized section and content) Goals may be documented in a n alternate sectionGoals may be documented in an alternate section INFORMATION SOURCE (unrecogn ized section and content) DATE CREATED AUTHOR 11/07/2024 [facility] DATE CREATED AUTHOR [facility] 08/06/2025 [facility] FOR RECORDS PERTAINING TO PATIENTS WHO ARE OR HAVE BEEN ENROLLED IN A CHEMICAL DEPENDENCY/SUBSTANCEABUSE PROGRAM, SOME INFORMATION MAY BE OMITTED. This clinical summary was aggregated from multiple sources. Caution should be exercised in using it in the provision of clinical care. This summary normalizes information from multiple sources, and as a consequence, information in this document may materially change the coding, format and clinical context of patient data. In addition, data may be omitted in some cases. CLINICAL DECISIONS SHOULD BE BASED ON THE PRIMARY CLINICAL RECORDS. [facility]. provides no warranty or guarantee of the accuracy or completeness of information in this document.
--- NOTE | 2025-09-10 11:20 | US_ITS ---
PROCEDURE: EXT NON VASC LIMITED/SOFT TISS 09/10/2025 REASON FOR EXAM: LUMP ON LEFT BICEP TECHNIQUE: Procedure Code: [id number] Modality: US Procedure: EXT NON VASC LIMITED/SOFT TISS. Targeted sonogram of the palpable lump overlying the left bicep muscle was performed. COMPARISON: None FINDINGS: The palpable lump corresponds to a 9.9 cm x 6.1 cm 3.2 cm well-defined isoechoic/slightly hyperechoic density. This most likely represents a lipoma. US/Ext Non Vasc Limited/Soft Tiss IMPRESSION: The palpable lump most likely corresponds to a 9.9 cm 6.1 cm 3.2 cm lipoma. Reading Location: [place] [address]
== END | disposition home or self-care (01) ==
LOC: US 11:15
PROVIDERS: PCP Student in an Organized Health Care Education/Training Program; Referring Provider Physician Assistant Medical; Visit Provider Physician Assistant Medical
DX: R22.32 Localized swelling, mass and lump, left upper limb (principal)
CPT/HCPCS: 76882